=== PATIENT | male | born 1940 | race Caucasian/White ===

== ENCOUNTER 2022-03-14 13:57 | Outpatient (CLI) | payer MEDICARE, BC, SELFPAY ==
--- OUTSIDE RECORDS SUMMARY | 2022-02-25 09:44 | XMS_ITS | Continuity of Care Document ---
:1940 Author Care Team Providers Name Role Phone MD Joy E Attending Physician MD Joy E Primary Care Physician Chief Complaint and Reason for Visit Chief Complaint Laceration Health Concerns Concerns Review problems and other documentation throughout for Health Concerns. 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 Hyperlipidemia 2017 Active Adenomatous polyp of colon 2020 Active Benign prostatic hypertrophy 2020 Active Post-nasal drip Active Upper airway cough syndrome 2020 Active Erectile dysfunction Active Post-nasal drainage Active 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, 2009 Resolved History of arthroscopic surgery May 24, 2009 Resolve d of shoulder History of melanoma June 15, 2009 Active Basal cell carcinoma of neck 2013 Resolved Squamous cell carcinoma of skin 2019 Resolved Medications Medication Status Dose Units Route Directions Qty Days Start End Ins tructions Date Date Calcium Active 625 MG PO Twice A Day Polycarbophil (Fiber-Lax) 625 Mg TAB Cetirizine Active 10 MG PO Bedtime March 3:27pm Cholecalcifer Active 5000 UNIT OR Daily ol (Vitamin D3) 5,000 Unit TAB Diphenhydrami Active 25 MG PO Bedtime 1 ne Hcl (Sleep) (Benadryl) 25 Mg TAB Docusate Active 1 TAB PO Twice A Day Calcium Finasteride Active 5 MG PO Daily November 29, 2021 9:53am Fluticasone Active 2 SPRAY EACH Daily 3 Februar Propionate NOSTR y 8th, (Nasal) 2021 10:15am Glucosamine-C Active 2 CAP PO Daily hondroitin (Glucosamine Chondroitin) 1 Cap CAP Hydrochloroth Active 25 MG PO Daily October ia2021 11:27am Melatonin Active 10 MG PO Bedtime Methylcellulo Active 500 MG PO Twice A Day se (Soluble Fiber) 19 Gm CUP Misc Natural Active 1 TAB PO Daily Products (Osteo Bi-Flex Joint Healt) 1 Tab TAB Multiple Active 1 EA PO Daily Vitamin (Multi-Vitami n) TAB Psyllium Active 1 TSP PO Every (Psyllium Morning as Fiber) 0.52 needed Gm CAP Simvastatin Active 20 MG PO Bedtime November 23, 2021 11:27am Tamsulosin Active 0.4 MG PO Daily Hcl (Flomax) r , 0.4 Mg CAP 2020 11:11am Aspirin Disconti 81 MG PO Daily March nued 2018 9:52am Aspirin Disconti 325 MG PO Daily Novemb (Aspirin 325 nued er Mg) 325 Mg , 2009 10:03a m Azithromycin Disconti 0 PO Daily 06 June Decemb T [facility] 2 TABLETS TOGETHER TODAY, THEN 1 TABLET ONCE DAILY FOR 4 MORE (Zithromax) nued , er DAYS 250 Mg TAB 2011, 10:51am 2011 10:06a m Cephalexin Disconti 500 MG PO Three Times September (Keflex) 500 nued A Day , Mg CAP 2010 2010 10:17am 10:29a m Cephalexin Disconti 500 MG PO Three Times 21 June Nov mb (Keflex) 500 nued A Day , er Mg CAP 2010 08, 9:54am 2009 9:58am Cephalexin Disconti 500 MG PO Three Times Juno be (Keflex) 500 nued A Day er r Mg CAP 2008 10:46am 3:00pm Cholecalcifer Disconti 400 IU PO Februa ol (Vitamin nued ry D) 400 Iu TAB 2014 10:29a m Clobetasol Disconti 1 JEY TOP Twice A Day March APPLY Propionate nued , , SPARINGLY TO (Clobetasol 2020 2021 AFFECTED AREA Propionate 3:27pm 3:06pm Cream) 0.05 % CRE Diclofenac Disconti 75 MG PO Twice A Day June ar Sodium nued 2012, 12:11pm 2013 12:57p m Diphtheria/Te Disconti 0.5 ML IM Once 1 Februar Februa tanus/Acell nued y , ry Pertussis 2014 10, (Adacel) 0.5 10:56am 2015 Ml INJ 11:18a m Fexofenadine Disconti 180 MG PO Daily March Hcl (Cassi nued , Allergy) 180 2020 Mg TAB 2:56pm Fexofenadine Disconti 180 MG OR Daily Octobe Hcl (Cassi nued , Allergy) 180 2014 Mg TAB 2:38pm Finasteride Disconti 5 MG PO Daily October nued 2021 9:53am Fish Oil Disconti 2000 MG PO Daily Octobe nued r 2009 9:42am Fluconazole Disconti 150 MG PO Once 1 November nued , , 2013 2013 11:07am 9:52am Fluocinonide Disconti 0.05 % EX Twice A Day October em (Lidex) 0.05 nued , % OIN 2010 06, 3:37pm 2011 10:54a m Fluticasone Disconti 2 SPRAY EACH Daily 3 Februar Novemb Propionate nued NOSTR y 9, er (Fluticasone 2016, Propionate 10:21am 2017 (Nasal)) 50 11:38a Mcg/1 [place] m INH Fluticasone Disconti 2 SPRAY EACH Daily 3 Septemberua Propionate nued NOSTR , ry (Fluticasone 2017 05, Propionate 11:09am 2016 (Nasal)) 50 10:21a Mcg/1 [place] m INH Fluticasone Disconti 2 SPRAY EACH Daily 3 uar Sepuar Propionate nued NOSTR y 15, y (Fluticasone 2015, Propionate 10:55am 2016 (Nasal)) 50 11:09a Mcg/1 [place] m INH Fluticasone Disconti 2 SPRAY EACH Daily June Propionate nued NOSTR 26th, ry (Fluticasone 2014 15, Propionate 10:54am 2016 (Nasal)) 50 10:55a Mcg/1 [place] m INH Fluticasone Disconti 1 SPRAY EACH Twice A Day 1 Jun obe Propionate nued NOSTR y 2nd, r (Flonase) 50 2014, Mcg/1 [place] 11:14am 2014 JULISSA 10:54a m Fluticasone Disconti 2 SPRAY EACH Daily Propionate nued NOSTR r 17, ry (Nasal) 2021 04, 12:29pm 2021 10:15a m Fluticasone Disconti 2 SPRAY EACH Daily April Propionate nued NOSTR 24th, er (Nasal) 2020, 3:22pm 2020 12:29p m Fluticasone Disconti 2 SPRAY EACH Daily June Propionate nued NOSTR 19th, 24th, (Nasal) 2019 2020 3:14pm 3:22pm Fluticasone Disconti 2 SPRAY EACH Daily January Propionate nued NOSTR 2nd, r (Nasal) 2019, 11:23am 2019 3:14pm Fluticasone Disconti 2 SPRAY EACH Daily October Propionate nued NOSTR 16th, 2nd, (Nasal) 2019 2019 2:18pm 11:23a m Fluticasone Disconti 2 SPRAY EACH Daily October Propionate nued NOSTR y , 16, (Nasal) 2018 2019 9:02am 2:18pm Fluticasone Disconti 2 SPRAY EACH Daily October Propionate nued NOSTR , ry (Nasal) 2017 12, 12:00pm 2018 9:02am Fluticasone Disconti 2 SPRAY EACH Daily October Propionate nued NOSTR 9th, 12th, (Nasal) 2017 2017 11:52am 12:00p m Guaifenesin Disconti 400 MG OR Daily as Januar nued 2021 7:51am Hydrochloroth Disconti 25 MG PO Daily November iazide nued 2020 12:06pm 11:27a m Hydrochloroth Disconti 25 MG PO Daily September iazide nued 2019 10:35am 11:48a m Hydrochloroth Disconti 25 MG PO Daily 90 Februar Januar iazide nued y , y 2019 23, 9:02am 2019 10:35a m Hydrochloroth Disconti 25 MG PO Daily September Februa iazide nued , ry 2019 5th, 3:12pm 2018 9:02am Hydrochloroth Disconti 25 MG PO Daily 90 November Januar iazide nued , y 2018 15, 2:06pm 2018 3:12pm Hydrochloroth Disconti 25 MG PO Daily 90 Februar November iazide nued y , , 2017 2018 10:21am 2:06pm Hydrochloroth Disconti 25 MG PO Daily 90 Novembe Februa iazide nued r 4th, ry 2016 9, 8:36am 2016 10:21a m Hydrochloroth Disconti 25 MG PO Daily 90 Februar Novemb iazide nued y 15, er 2016 4th, 10:55am 2015 8:36am Hydrochloroth Disconti 25 MG PO Daily June Februa iazide nued , ry 2014 15, 10:54am 2015 10:55a m Hydrochloroth Disconti 25 MG PO Daily Juneobe Patient needs iazide nued , r apt prior to 2014, further 9:49am 2014 refills. 10:54a m Hydrochloroth Disconti 25 MG PO Daily Juneobe iazide nued , r 2013, 2:54pm 2014 9:49am Hydrochloroth Disconti 25 MG PO Daily Juneobe iazide nued , r 2013 1:39pm 2:54pm Hydrochloroth Disconti 25 MG PO Daily January iazide nued , r , 2013 2013 10:26am 1:39pm Hydrochloroth Disconti 25 MG PO Daily November iazide nued , , 2013 2013 3:44pm 10:26a m Hydrochloroth Disconti 25 MG PO Daily January iazide nued , , 2012 2013 8:00am 3:44pm Hydrochloroth Disconti 25 MG PO Daily October iazide nued , , 2012 2012 1:22pm 8:00am Hydrochloroth Disconti 25 MG PO Daily 90 January iazide nued , 2011 1:39pm 1:22pm Hydrochloroth Disconti 25 MG PO Daily 30 r January iazide nued y , 2011 12:39pm 1:39pm Hydrochloroth Disconti 25 MG PO Daily Juneua iazide nued , ry 2010, 1:26pm 2011 12:39p m Hydrochloroth Disconti 25 MG PO Daily Marchobe iazide nued , r 2010, 2:40pm 2010 1:26pm Hydrochloroth Disconti 25 MG PO Daily October iazide nued 2010 4:10pm 2:40pm Hydrochloroth Disconti 25 MG PO Daily September iazide nued , 2010 11:42am 4:10pm Hydrochloroth Disconti 25 MG PO Daily 30 [facility] iazide nued r , y 2009, 3:07pm 2010 11:42a m Hydrochloroth Disconti 25 MG PO Daily 30 [facility] iazide nued r , er 2008 27, 11:34am 2009 3:07pm Hydrochloroth Disconti 25 MG PO Daily 28 February [facility] iazide nued , er 2008 28, 3:54pm 2008 11:34a m Influenza Disconti 0.7 ML IM Once Juneobe Virus Vac nued , r Split High 2020, (Fluzone 2:51pm 2020 High-Dose Pf 2:55pm 2020 0.7 Ml) 1 Inj INJ Influenza Disconti 0.5 ML IM Once Juneobe Virus Vaccine nued , r Split 2018, (Fluzone 3:45pm 2018 High-Dose Pf 3:46pm 2018 0.5 Ml) 1 Inj INJ Ipratropium Disconti 2 SPRAY EACH Three Times March [place] nued NOSTR A Day , (Ipratropium 2019 2020 [place] Nasal 3:23pm 10:57a [place]) 0.03 % m SPR Loratadine Disconti 10 MG PO Daily Octobe nued r 2014 11:06a m Loratadine Disconti 10 MG OR Daily Octobe (Allergy) 10 nued r 8th, Mg TAB 2013 2:29pm Magnesium Disconti 400 MG PO Daily October Hydroxide nued , (Milk Of 2009 Magnesia) 400 2:51pm Mg/5 Ml TIM Menthol-Camph Disconti 1 CRE EX as needed November or nued , (Liniments) 2018 (Icy Hot 8:34am Advanced Relief 16-11 %) 1 Cre CRE Methylprednis Disconti 1 TAB PO As Directed r A pril DIRECTED olone (Medrol nued y , , ON P ACKAGE Dosepak) 4 Mg 2014 2014 MEGA 3:31pm 2:46pm Molnupiravir Disconti 800 MG PO Twice A Day December nued , , 2021 2021 4:09pm 3:06pm Molnupiravir Disconti 800 MG PO Twice A Day December nued , , 2021 2021 2:18pm 4:09pm No Home Meds Disconti Decembered 2006 9:49am Yldhg-0-Ykha Disconti 2 TABS OR Daily Februa Ethyl Esters nued (Fish Oil) , 1,200 Mg CAP 2016 10:08a m Pneumococcal Disconti 0.5 ML IM Once 1 Februar Februa Polyvalent nued y , ry Vaccine 2014 12, (Prevnar 13) 2:19pm 2014 0.5 Ml INJ 2:21pm Prednisone Disconti 20 MG PO Twice A Day March nued , y 2020 11, 3:27pm 2021 7:51am Prednisone Disconti 20 MG PO Twice A Day December nued , , 2016 2016 2:49pm 4:12pm Prednisone Disconti 20 MG PO Every 7 June Februa nued Morning , ry 2014, 10:59am 2015 1:12pm Promethazine Disconti 1 - 2 TSP PO Q4-6H Prn 120 March Octobe W/Codeine nued , r (Phenergan W/ 2010, Codeine) 6.25 11:17am 2011 Mg/10 Mg SYRP 3:25pm Salonpas Disconti 1 PATCH TD as needed November 8:34am [place] Disconti 1 CAP PO Twice A Day March (Serenoa nued , Repens) (2020 [place]) 160 2:56pm Mg CAP [place] Disconti 160 MG PO Octobe (Serenoa nued r Repens) (, [place]) 160 2019 Mg CAP 3:37pm Sawplalenty Disconti 2 TABS Daily nued 2014 10:29a m Sildenafil Disconti 40-10 MG PO Daily as September Take at least Citrate nued 0 needed 4th, y 1 hour befo re (Sildenafil 2020, sexual Citrate 12:52pm 2020 activity (Pulmonary)) 2:12pm 20 Mg TAB Sildenafil Disconti 40-10 MG PO Daily as December Ta ke at least Citrate nued 0 needed , y 4th, 1 hour bef ore (Pulmonary 2018 2020 sexual (Sildenafil 11:48am 12:52p activ ity Citrate) 20 m Mg TAB Simvastatin Disconti 20 MG PO Bedtime November nu, , 2020 2021 12:06pm 11:27a m Simvastatin Disconti 20 MG PO Bedtime September, 2019 10:35am 11:48a m Simvastatin Disconti 20 MG PO Bedtime nu y , y 2018, 9:02am 2019 10:35a m Simvastatin Disconti 20 MG PO Bedtime September nued , ry 2018 12, 8:29am 2018 9:02am Simvastatin Disconti 20 MG PO Bedtime November nued , y 2017 16, 2:09pm 2018 8:29am Simvastatin Disconti 20 MG PO Bedtime Octobered , , 2016 2017 1:23pm 2:09pm Sulfamethoxaz Disconti 1 TABLET PO Twice A Day 20 April J olive ole-Trimethop nued , y rim (Bactrim 2016, Ds (800/160)) 9:46am 2017 800 Mg/160 Mg 10:50a TAB m Tamsulosin Disconti 0.4 MG PO Daily March [facility] Hcl (Flomax) nued 9, er 0.4 Mg CAP 2020, 4:13pm 2020 11:11a m Tamsulosin Disconti 0.4 MG PO Daily April Hcl (Flomax) nued 18, 9, 0.4 Mg CAP 2019 2020 3:00pm 4:13pm Tamsulosin Disconti 0.4 MG PO Daily 60 January Hcl (Flomax) nued , , 0.4 Mg CAP 2019 2019 2:45pm 3:00pm Zostavax Disconti 0.65 ML SUBQ Once 1 [facility] nued r 15, er 2009, 2:11pm 2009 2:14pm Zoster Disconti 50 MCG IM Once Septemberr Vaccine nued 18, y Recombinant 2020 18, Adj 2:27pm 2020 (Shingrix) 50 2:58pm Mcg/0.5 Ml INJ Immunizations Immunization Event Date Not Given Dose [employer] Lot Vac cine Reason Number Number Informatio n Statement (VIS) Deta il COVID-19 Pfizer October 02, 2020 COVID-19 Pfizer October 032020 COVID-19 Pfizer June 14, 2020 Herpes Zoster March 14, 2007 Herpes Zoster August 02 [employer] 2009 Influenza April 28, 2016 Influenza May 03, 2017 Influenza June 17, 3 SANOFI 2018 Influenza June 08, 4 2019 Influenza June 26, 5 SANOFI 2020 Influenza June 26, 2020 Prevnar Adult October 06, 2014 Pneumovax Adult February 13, 2006 Shingrix August 01, 2009 Shingrix September 18, 2 GLAXO SK 2020 Tetanus/Diptheri June 14, 1 a 2005 Tetanus/Diptheri October 03, 2 a 2014 Tdap October 03, 1 SANOFI [id number] (adolescent/adul 2015 t) Relevant Diagnostic Tests and/or Laboratory Data Laboratory Results Test Date/Time Result Interpretation Reference Result Comment Performing Site Range Random February 12 60-115 [facility] Glucose 2021 [address] [facility] 3:30pm [facility] [address] Blood Urea February 12 7-30 [facility] Nitrogen 2021 [address] [facility] 3:30pm [place] [address] Creatinine February 12, 0.9 0.5-1.5 [facility] Lab 2021 [address] [facility] 3:30pm [place] [address] Estimated February 12, Patient [facility] Creatinine 2021 height/weight [address] [facility] Clearance 3:30pm [place] [address] available Sodium Level February 12, 135 135-149 [facility] Lab 2021 [address] [facility] 3:30pm [place] [address] Potassium February 12, 4.3 3.6-5.1 [facility] Level 2021 [address] [facility] 3:30pm [place] [address] Chloride February 12, 94 96-114 [facility] Level 2021 [address] [facility] 3:30pm [facility] [address] Carbon February 12, 33 20-32 [facility] Dioxide 2021 [address] [facility] Level 3:30pm [facility] [address] Calcium February 12, 9.4 8.4-10.6 [facility] Level 2021 [address] [facility] 3:30pm [facility] [address] Total February 12, 6.9 6.0-8.3 The use of [facility] Protein 2021 Eltrombopag, a [address] [facility] 3:30pm bone [place] [address] stimulant used to treat thrombocytopen ia and aplastic anemia, interferes with this measurement of total protein. A 5% bias has been observed. Albumin February 12, 4.4 3.3-5.0 [facility] 2021 [address] [facility] 3:30pm [facility] [address] Total February 12, 0.6 0.1-1.5 [facility] Bilirubin 2021 [address] [facility] 3:30pm [facility] [address] Aspartate February 12, 36 12-35 [facility] Amino Transf 2021 [address] (AST/SGOT) 3:30pm [facility] [address] Alanine February 12, 25 4-50 [facility] Aminotransfe 2021 [address] rase 3:30pm [facility] [address] (ALT/SGPT) Alkaline February 12, 77 40-150 [facility] Phosphatase 2021 [address] [facility] 3:30pm [place] [address] Thyroid February 12, 4.410 0.270-4.20 [facility] Stimulating 2021 0 [address] [facility] Hormone 3:30pm [place] [address] (TSH) Free February 12, 1.01 0.70-1.85 [facility] Thyroxine 2021 [address] [facility] 3:30pm [place] [address] White Blood February 12, 6.8 4.5-11.0 [facility] Count 2021 [address] [facility] 3:18pm [place] [address] Red Blood February 12, 4.36 4.30-5.90 [facility] Count 2021 [address] [facility] 3:18pm [place] [address] Hemoglobin February 12, 13.6 13.5-17.5 [facility] [place] 2021 [address] [facility] 3:18pm [place] [address] Hematocrit February 12, 40.6 37-53 [facility] [address] [facility] 3:18pm [place] [address] Mean February 12, 93 80-100 [facility] Corpuscular 2021 [address] [facility] Volume 3:18pm [place] [address] Mean February 12, 31 26-34 [facility] Corpuscular 2021 [address] [facility] Hemoglobin 3:18pm [place] [address] Mean February 12, 34 32-36 [facility] Corpuscular 2021 [address] [facility] Hemoglobin 3:18pm [place] [address] Concent Platelet February 12, 289 140-440 [facility] Count 2021 [address] [facility] 3:18pm [place] [address] Neutrophils February 12, 68.3 42-72 [facility] (%) (Auto) 2021 [address] [facility] 3:18pm [place] [address] Lymphocytes February 12, 20.2 20-44 [facility] (%) (Auto) 2021 [address] [facility] 3:18pm [facility] [address] Monocytes February 12, 9.3 0-11 [facility] (%) (Auto) 2021 [address] [facility] 3:18pm [place] [address] Eosinophils February 12, 1.8 0-7 [facility] (%) (Auto) 2021 [address] [facility] 3:18pm [place] [address] Basophils February 12, 0.3 0.0-3.0 [facility] (%) (Auto) 2021 [address] [facility] 3:18pm [place] [address] Neutrophils February 12, 4.6 1.7-7.0 [facility] # (Auto) 2021 [address] [facility] 3:18pm [place] [address] Lymphocytes February 12, 1.4 0.9-2.9 [facility] [place] # (Auto) 2021 [address] [facility] 3:18pm [place] [address] Monocytes # February 12, 0.6 0.0-0.9 [facility] ealtedical [place] (Auto) 2021 [address] [facility] 3:18pm [place] [address] Eosinophils February 12, 0.1 0.0-0.5 [facility] # (Auto) 2021 [address] [facility] 3:18pm [place] [address] Basophils # February 12, 0.0 0.0-0.3 [facility] (Auto) 2021 [address] [facility] 3:18pm [place] [address] Immature February 12, 0.0 [facility] [place] Granulocyte 2021 [address] [facility] # (Auto) 3:18pm [place] [address] Immature February 12, 0.1 [facility] Granulocyte 2021 [address] [facility] % (Auto) 3:18pm [place] [address] Diagnostic Imaging Reports Report Dictated Date/Time Dictated By Status October 06, 2018 Ellen Hamilton MD active 4:17pm [facility] [address] [place] [address] ~BABATUNDE Connor SUMMARY~ Patient: BRAD DE ANDA MR #: [id number] : 1940 Age: 78 Sex: M MD: Ellen Hamilton MD Report #: [id number] Loc: NIM afchristian October 06, 2018 BRAD [address] [address] [facility] [address] Dear Brad: ?? I hope this letter finds you quite well. It was such a pleasure to see you at your office visit today. I wanted to let you know that your blood sugar, electrolytes, kidney tests, and choleste rol are in excellent range. I would make no changes at this time. Let me know if you have any questions or concerns. ?? Very sincerely yours, Ellen Hamilton MD Internal Medicine [facility] ? [facility]:kristine ENCLOSURES: Labs. Dictated By: Ellen Hamilton MD Signed By: Vital Signs Vital Reading Result Reference Range Collection Date/ Time Height 71 [in_i] February 12, 2022 2:59pm Height 180.34 cm February 12, 2022 2:59pm Weight 171 [lb_av] February 12, 2022 2:59pm Weight 77.5643 kg February 12, 2022 2:59pm Body Temperature 98.3 [degF] February 12, 2022 2:59pm Body Temperature 36.83 Kristine February 12, 2022 2:59pm BP Systolic 124 mm[Hg] February 12, 2022 2:59pm BP Diastolic 72 mm[Hg] February 12, 2022 2:59pm Heart Rate 44 /min February 12, 2022 2:59pm Respiratory rate 14 /min February 12, 2022 2:59pm Body surface area 1.97 m2 February 12 2:59pm BMI (Body Mass Index) 23.8 kg/m2 February 12, 2022 2:59pm Advance Directives Advance Directive Response Recorded Date/Time Does Pt have Health Care N - Given today November 15 2:38pm Directive? Has patient completed a Yes February 12, 2022 3:30pm Health Care Directive? Insurance Providers Guarantor Brad De Anda Address [address] [facility] [address] Contact Info. Home Phone: Payer Policy Id Coverage Id Subscriber's Subscriber Id Effective E xpiration Name Date Date Medicare [id number] PremaOctober Brad Fleming [address] [facility] [id number] [place] [id number] Brad Fleming Encounters Encounter Location(s) Arrival/Admit Date Discharge/Depart Date Provider(s) Registered [place] February 12, 2022 [facility] 3:18pm Ellen Connor MD Registered [facility] February 12, 2022 [facility] 3:00pm Ellen Connor MD Office Visit [place] February 12, 2022 [facility] 3:00pm Ellen Connor MD Medicine Recent Diagnosis Onset Date Post-COVID chronic dyspnea Assessments 1. Post covid chronic fatigue.2. Post covid chronic dyspnea.His activity tolerance was pretty good. It is hard to know if labs/Echo/CT chest PE protocol (to rule out chronic PE due to Covid) should be done now or later, given his current symptoms. I'm on the fence, so have elected to do these diagnostics no w. If normal, the treatment would be activity as tolerated and a graduated exercise program (doing what he can). 3. Health Maintenance.Medicare wellness visit was done today. Dictation done with voice recognition, and as a result, wrong word or [id number] substitutions may have occurred. There may be errors in the script that have gone undetected. Please consider this when interpreting information found in this chart. Plan of Treatment Instructions from visit on: 02/12/22 Please follow the provider's instructions as discussed during your visit. Instructions from visit on: 02/12/22 Please follow the providers instructions as discussed during your visit and follow preventative care plan. Future Tests Future scheduled test information is unavailable Pending Tests Pending diagnostic test information is unavailable Future Visits Future appointment information is unavailable Referrals to Other Providers Referral information is unavailable Future Procedures Procedure Name Scheduled Date CARD Echo W/ CF Dop CT Chest W/Con-PE Pr Future Medications Future medication information is unavailable Patient Instructions Patient instructions are unavailable Goals Ambulatory Goals Reach or maintain optimal well being.
--- NOTE | 2022-03-14 15:00 | CRLHL7_ITS ---
For Patients: As a result of the Century Cures Act, medical imaging exams and procedure reports are released immediately into your electronic medical record. You may view this report before your referring provider. If you have questions, please contact your health care provider. INDICATION: Post-covid chronic dyspnea COMPARISON: none TECHNIQUE: CT volumetric acquisition was performed of the thorax during intravenous infusion of 95 cc Isovue 370 nonionic intravenous contrast. Please note that all CT scans at this facility use dose modulation, iterative reconstruction, and/or weight-based dosing when appropriate to reduce radiation dose to as low as reasonably achievable. FINDINGS: The CT images are of acceptable quality and demonstrate normal uniform vascular enhancement within the pulmonary arteries. There are no suspicious filling defects which would indicate pulmonary thromboemboli. There is no evidence of pleural or pericardial fluid. The heart and thoracic aorta appear normal. There is no evidence of lymphadenopathy within the central mediastinum or within either axilla. On lung window settings, there is no evidence of pneumothorax. 4 millimeter nodule in the posterior aspect of the right lower lobe, series 5, image 101. 9 millimeter nodule left lower lobe, series 5, image 103. Mild dependent atelectasis/scarring. Mild COPD/emphysema. Postop changes to the upper abdomen. Simple cyst left kidney measuring 2.5 cm. Dense vascular calcifications. No fracture. IMPRESSION: No evidence of pulmonary thromboembolism. Mild dependent areas of atelectasis/scarring. Mild COPD/emphysema. 9 millimeter left lower lobe nodule. Follow-up CT 3 months recommended. Please note that all CT scans at this facility use dose modulation, iterative reconstruction, and/or weight-based dosing when appropriate to reduce radiation dose to as low as reasonably achievable. Dictated by Corbin Ng MD @ 03/15/2022 11:01:12 AM (Electronically Signed)
== END 2022-03-14 13:58 | disposition home or self-care (01) ==
LOC: RAD 13:58
PROVIDERS: PCP Internal Medicine; Visit Provider Internal Medicine
DX: R06.09 Other forms of dyspnea (principal); J43.9 Emphysema, unspecified; R91.8 Other nonspecific abnormal finding of lung field; U09.9 Post COVID-19 condition, unspecified
CPT/HCPCS: 71260; 93306; Q9967

== ENCOUNTER 2022-03-30 10:15 | Emergency (ER) | payer MEDICARE, BC, SELFPAY ==
[2022-03-30 10:21] VITALS: BP 133/72; PULSE 96; RESP 18; TEMP 36.5; O2SAT 96; BMI 24.3
--- NOTE | 2022-03-30 11:05 | PC.NURSE ---
sling applied to left arm
--- NOTE | 2022-03-30 11:22 | PC.NURSE ---
BF to lab
[2022-03-30 12:10] LABS: Mononuclear WBC Body Fluid* 63 %; Polynuclear WBC Body Fluid* 37 %; WBC, Body Fluid* 0.691 10^3/uL
[2022-03-30 12:13] LABS: BF Clarity* Slightly Cloudy; BF Color Xanthochromic; BF Total Volume* 12
--- NOTE | 2022-03-30 19:16 | ED_ITS ---
HPI - General Adult General Date Seen: 03/30/22 Chief complaint: Extremity Pain/Injury, Upper Stated complaint: swollen left elbow Time Seen by Provider: 03/30/22 10:35 Source: patient History of Present Illness HPI narrative: Patient is an 81-year-old male who reports that about 2-3 weeks ago he had a lesion removed by dermatology. Over the past couple of days he has developed some increased swelling on his left elbow, underneath where that lesion was removed. He has some pain now which is new today. He also notes significantly more swelling. He has not had any fevers or chills. He denies any history of diabetes or medications which affect his immune system. He says he tried to call the dermatology clinic today but they are not open. He has not noted any drainage. He says that the sutures were dissolvable but he does not believe that they have dissolved yet, and he wonders if that is what is causing the problem. He denies any other trauma to the elbow. He has never had swelling in the elbow like this before. Related Data Home Medications Medication Instructions Recorded Confirmed ammonium lactate 12 % topical cream applic TOPICAL 03/30/22 finasteride 5 mg tablet mg 03/30/22 fluticasone propionate 50 INTRANASAL 03/30/22 mcg/actuation nasal spray,suspension hydrochlorothiazide 25 mg tablet mg 03/30/22 simvastatin 20 mg tablet mg 03/30/22 tadalafil 5 mg tablet mg 03/30/22 tamsulosin 0.4 mg capsule mg PO 03/30/22 Previous Rx's Medication Instructions Recorded cephalexin 500 mg capsule 500 mg PO QID #28 cap 03/30/22 Allergies Allergy/AdvReac Type Severity Reaction Status Date / Time No Known Drug Allergies Allergy Verified 03/30/22 10:25 Review of Systems Status of ROS: Reports: 6 or more systems reviewed and unremarkable except as noted in History and below Exam Narrative: Exam Narrative: Vital signs reviewed In general, an alert, nontoxic elderly male. He looks comfortable. Extremities: Examination of the left upper extremity shows swelling and bogginess over the olecranon on the left. There is erythema warmth. He has the previously mentioned wound from his derm procedure, this has 1 absorbable suture that I can see protruding. The wound itself appears well healed. There is no drainage. He has full range of motion of the elbow, this does not seem to cause him any pain. The arm otherwise is free of any significant erythema. Distal CMS is normal. Skin: Warm dry and well perfused. Neurologic he is alert and oriented, conversant, gait is stable. Affect: Normal. Const: Vital Signs, click to edit/add: Vital Signs - 24 hr 03/30/22 10:21 Temperature 97.7 F Pulse Rate [Right Pulse Oximeter] 96 Respiratory Rate 18 Blood Pressure [Ri ght Upper Arm] 133/72 Pulse Oximetry 96 Course Course Hospital Course: Overall presentation is consistent with olecranon bursitis. He does have erythema and warmth there, had a recent procedure with an open wound, and so I recommended that we cover him with antibiotics. Therefore I did recommend that we send some fluid off for culture before we start the antibiotics. He agreed to proceed with aspiration of the bursa. Procedure note: The skin was prepped with Betadine, I anesthetized the skin distal to the olecranon bursa with lidocaine with epinephrine and then used an 18 gauge needle, using is exactly approach into the bursa to minimize develo pment of sinus tract. Approximately 12 mL of orange serous fluid were removed. It does not look overtly purulent. This was sent for cell count and culture. He tolerated this well. Bandage was applied. I have given him a sling, I have asked him to minimize how much he uses this arm, I have asked him to avoid placing weight on his elbow. Tylenol as needed. Keflex as prescribed. I have asked him to call his derm clinic on Friday, however I suspect they will want him to follow up with Orthopedics for his bursitis rather than them. Discussed with him that he will likely need to schedule follow-up with Orthopedics. Also reviewed that if he is worsening, if he has significant increased swelling, redness, or develops new symptoms such as fever chills, he should return to the emergency department. Vital Signs Vital signs: Initial Vital Signs Temperature 97.7 F 03/30/22 10:21 Temperature Source Temporal Artery Scan 03/30/22 10:21 Pulse Rate 96 03/30/22 10:21 Respiratory Rate 18 03/30/22 10:21 Blood Pressure 133/72 03/30/22 10:21 Blood Pressure Mean 92 03/30/22 10:21 Blood Pressure Position Sitting 07/30/22 10:21 Pulse Oximetry 96 03/30/22 10:21 Oxygen Delivery Method 03/30/22 10:21 Vital Signs Temperature 97.7 F 03/30/22 10:21 Pulse Rate 96 03/30/22 10:21 Respiratory Rate 18 03/30/22 10:21 Blood Pressure 133/72 03/30/22 10:21 Pulse Oximetry 96 03/30/22 10:21 Temperature 97.7 F 03/30/22 10:21 Pulse Rate 96 03/30/22 10:21 Respiratory Rate 18 03/30/22 10:21 Blood Pressure 133/72 03/30/22 10:21 Pulse Oximetry 96 03/30/22 10:21 Medical Decision Making Lab Data Labs: Lab Results 03/30/22 Range/Units 11:00 Fluid Volume 12 Fluid Color Xanthochromic A Fluid Appearance Slightly Cloudy A Fluid WBC 0.691 10^3/uL Fluid RBC 0.010 10^6/uL Fluid Polynuclear WBCs 37 % Fluid Mononuclear WBCs 63 % Discharge Plan Discharge Clinical Impression: Olecranon bursitis of left elbow Patient Disposition: Home, Self-Care Condition: Improved Instructions: Elbow Bursitis (ED) Additional Instructions: Wear sling as much as able. Antibiotics as prescribed. Call your dermatology clinic on Friday to discuss follow-up. They may want you to follow-up with orthopedics for the bursitis, but given your recent procedure on the left elbow I would check with dermatology 1st. If at any time you have worsening swelling and or pain, or develop new symptoms such as fever, return to the emergency department. Prescriptions: New cephalexin 500 mg capsule 500 mg PO QID Qty: 28 0RF No Action tamsulosin 0.4 mg capsule PO 0RF Label Comments: TAKE ONE CAPSULE BY MOUTH DAILY simvastatin 20 mg tablet 0RF Label Comments: TAKE ONE TABLET BY MOUTH AT BEDTIME ammonium lactate 12 % cream TOPICAL 0RF Label Comments: APPLY AFFECTED ITCHY AREAS ON BODY 1-2X DAILY hydrochlorothiazide 25 mg tablet 0RF Label Comments: TAKE ONE TABLET BY MOUTH DAILY fluticasone propionate 50 mcg/actuation spray,suspension INTRANASAL 0RF Label Comments: USE 2 SPRAYS IN EACH NOSTRIL DAILY finasteride 5 mg tablet 0RF Label Comments: TAKE 1 TABLET BY MOUTH IN THE MORNING tadalafil 5 mg tablet 0RF Label Comments: TAKE 1 TABLET BY MOUTH ONCE DAILY NEEDED FOR ERECTILE DYSFUNCTION .TAKE 30 MINUTES BEFORE SEXUAL ACTIVITY Follow Up/Referrals: Ellen Hamilton MD [Primary Care Provider] - Stand Alone Forms: [employer] Info Instructions
== END 2022-03-30 11:14 | disposition home or self-care (01) ==
PROVIDERS: Emergency Provider Emergency Medicine; PCP Internal Medicine
DX: M70.22 Olecranon bursitis, left elbow (principal)
CPT/HCPCS: 20605; 87070; 89051; 99283

== ENCOUNTER 2022-05-08 06:12 | Day surgery (SDC) | payer MEDICARE, BC, SELFPAY ==
[2022-05-08] VITALS (12 sets, daily range): BP systolic 112–133; BP diastolic 54–71; PULSE 65–94; RESP 12–20; TEMP 36.3–36.8; O2SAT 94–98; BMI 24.4
[2022-05-08] MEDS: SODIUM CHLORIDE 0.9 % (FLUSH) 10 ML SYRINGE IVF (07:00)
[2022-05-08] MEDS: LACTATED RINGERS 1000 ML 1,000 ML 100 ML IV (07:00)
--- NOTE | 2022-05-08 08:56 | P.ORPRC_ITS ---
Procedure Note Date of procedure: 05/08/22 Procedure: PREOPERATIVE DIAGNOSIS: 1. Left elbow olecranon bursitis 2. Left posterior elbow sinus tract to the olecranon bursa POSTOPERATIVE DIAGNOSIS: 1. Left elbow olecranon bursitis 2. Left posterior elbow sinus tract to the olecranon bursa PROCEDURE: 1. Left elbow olecranon open bursectomy 2. Left elbow posterior excisional debridement of skin and subcutaneous tissue SURGEON: Austen Butcher MD. CERAMIC TILE INSTALLATION HELPER: Hawk HERNANDEZ - Of note, an trust manager assistant was critical for this case to aid in patient positioning, tissue retraction, limb manipulation/positioning, and closure. ANESTHESIA: General LMA EBL: Less than 2 mL IMPLANTS: None TOURNIQUET: 25 minutes at 250 torr COMPLICATIONS: None evident INDICATIONS: The patient is a pleasant 81-year-old male who has experienced left posterior elbow recurrent bursitis. The patient did attempt to drain this bursal sac 3 times on his own. This subsequently developed a cellulitis and a persistent drainage from a sinus tract. He was placed on oral antibiotics for the cellulitis but surgery was recommended/indicated for bursectomy and sinus tract excisional debridement. DESCRIPTION OF PROCEDURE: Following a thorough discussion of risks, benefits, and alternatives consent was obtained and the left elbow was marked. The patient was brought to the operating room and placed supine on the operating table. Induction of anesthesia was undertaken. 2 g IV Ancef was administered within 1 hr of incision preoperatively. Proper time-out was performed identifying proper patient, site, procedure. The operative extremity was prepped and draped in the appropriate sterile fashion using ChloraPrep after the patient was positioned supine with all bony prominences well padded. Following exsanguination of the operative extremity, a longitudinal, posterior skin incision was made along the olecranon bursa curving laterally around the olecranon tip. Upon entering the bursal sac a large amount of clear, christian colored, non malodorous fluid erupted out. This fluid was captured with a culture swab and sent for Gram stain, aerobic, and anaerobic cultures. Following this, the elbow bursa was substantially thickened. A complete bursectomy was performed a combination of 15 blade scalpel and Metzenbaum scissors and Bovie cautery. The sac was released from the surrounding subcutaneous tissue circumferentially even adjacent to the proximal olecranon. At the level of the sinus tract, skin and subcutaneous tissue was excised (it is less than 1 sq cm). The elbow bursa was thoroughly irrigated with normal saline, and closure performed in layered fashion with 2-0 Vicryl for space closure, 2-0 Stratafix for the subcutaneous, and 4-0 Stratafix for subcuticular closure. The skin adjacent to the sinus tract was closed primarily with 4-0 Monocryl in interrupted fashion at the end of the procedure. Dressings were applied, tourniquet deflated, and a posterior splint was applied. The patient was awoken from anesthesia and transferred to the PACU in stable condition. PLAN: 1. Nonweightbearing operative extremity. 2. Ice. 3. Elevate. 4. Percocet for pain p.r.n. 5. Follow up with PA visit in 1-2 weeks. Removal of splint, repeat clinical check. Follow up on cultures
[2022-05-08] MEDS: BUPIVACAINE 0.5% 30 ML 5 ML INJECTION (09:17)
--- NOTE | 2022-05-08 09:34 | W.ANESCHARGE ---
Anesthesia Charges Start Date/Time Anesthesia Start Date: 05/08/22 Anesthesia Start Time: 08:16 Stop Date/Time Anesthesia Stop Date: 05/08/22 Anesthesia Stop Time: 09:36 Summary Extremes of Age: Over 68-CPT [id number]
--- NOTE | 2022-05-08 10:07 | SUR.PHASEI ---
patient met anesthesia discharge criteria.
--- NOTE | 2022-05-08 17:13 | SUR.OPER ---
PATIENT QUESTIONS ANSWERED SATISFACTORILY PREOPERATIVELY.? PATIENT BROUGHT TO OR #2 PER CART.? Patient positioned supine on OR #2 bed.?The perioperative?team supported arms bilaterally on arm boards.? Final approval of positioning by surgeon.?
== END 2022-05-08 10:56 | disposition home or self-care (01) ==
PROVIDERS: PCP Internal Medicine; Visit Provider Orthopaedic Surgery Sports Medicine
PROC: (CPT 24105; principal; 2022-05-08 08:00)
DX: M70.22 Olecranon bursitis, left elbow (principal)
CPT/HCPCS: 24105; 00400; 87186; 87205; 99100; A4580; J1100; J2250; J2370; J2405; J2704; J3010; J3490; J7120

== ENCOUNTER 2022-05-21 09:02 | Outpatient (CLI) | payer MEDICARE, BC, SELFPAY ==
--- OUTSIDE RECORDS SUMMARY | 2022-05-21 09:05 | XMS_ITS | Continuity of Care Document ---
:[address] [facility] Care Team Providers Name Role Phone [facility] Unavailable Unavailable Problems Combined list of problems from Department of Defense and Veterans Affairs facilities. It does not include entries that were removed or entered in error. Problem Status Onset Problem Type Date of Comments Source Date Resolution Allergic Rhinitis Active Condition [place] [facility] [place] [id number]) [facility] Erectile [place] [facility] [id number]) HTN - Hypertension Active [place] [facility] ([facility] [id number]) HCS Hyperlipidemia ([facility] Active Condition [facility] [id number]) H[facility] Nocturia due to Active [place] [facility] benign prostatic [facility] hypertrophy Tear of left Active Condition [place] [facility] [facility] rotator cuff [facility] Diagnosis: [facility] ICD-10-CM L29.9 [facility]CS Pruritus, unspecifiedwith Provider Comments: Pruritus, unspecified Medications Combined list of outpatient medications from Department of Defense and Veterans Affairs facilities. Medications provided include 1) outpatient medications from the last 15 months, and 2) patient-reported medications. Medication Details Route Status Patient Prescription Prescription Last Ordering Order Source Instructions Expires Number Dispense Provider Date Date CALCIUM TAKE ACTIVE TRAUT,HERACLIO 04/02/ [place] POLYCARBOPH HARD L 2020 [facility] [place] TAB [facility] CETIRIZINE TAKE ACTIVE TRAUT,HERACLIO 04/02/ [place] TAB HARD L 2020 [facility] DOCUSATE NA TAKE 2 ORALLY ACTIVE TRAUT,HERACLIO 04/02/ [place] 100MG CAP CAPSULES HARD L 2020 [facility] BY MOUTH H[facility] PRN FINASTERIDE TAKE ONE ORALLY ACTIVE TRAUT,HERACLIO 04/02 / [place] 5MG TAB TABLET HARD L 2020 [facility] BY [facility]TH [facility] EVERY DAY FLUTICASONE SPRAY 2 NASAL ACTIVE TRAUT,HERACLIO 09/07/ [place] PROPIONATE SPRAYS HARD L 2019 [facility] 50MCG/SPRAY IN EACH HCS SOLN,NASAL, [place] 16GM EVERY DAY NEEDED HYDROCHLORO TAKE ONE ORALLY ACTIVE TRAUT,HERACLIO 09/07 / [place] THIAZIDE TABLET HARD L 2019 [facility] 25MG TAB BY MOUTH HCS EVERY DAY LIDOCAINE APPLY 1 [place]ICA ACTIVE 02/10/2023 [id number] TRAUT, HERACLIO 02/12/ [place] 5% PATCH PATCH LLY 2 HARD L 2021 [facility] TOPICALL [facility] Y EVERY DAY NEEDED FOR PAIN WEAR FOR 12 HOURS AND THEN REMOVE METHYLCELLU TAKE BY ORALLY ACTIVE TRAUT,HERACLIO 04/02/ [place] LOSE TAB MOUTH HARD L 2020 [facility] MULTIVITS TAKE ACTIVE TRAUT,HERACLIO 04/02/ [place] W/MINERALS( HARD L 2020 [facility] NO VIT K) HCS TAB PSYLLIUM TAKE 1 ORALLY ACTIVE 11/13/2022 [id number] TRAUT,R IC 11/13/ [place] PWDR,ORAL TABLESPO 2 HARD L 2021 [facility] ON BY HCS MOUTH EVERY DAY MIXED IN JUICE OR WATER DIRECTED TO HELP REGULATE STOOLS TO HELP HEMORRHO IDS. PSYLLIUM TAKE 1 ORALLY DISCONT 09/20/2021 [id number] TRAUT, HERACLIO 09/19/ [place] PWDR,ORAL TABLESPO INUED 1 HARD L 2020 [facility] ON BY [facility]CS MOUTH EVERY DAY MIXED IN JUICE OR WATER DIRECTED TO HELP REGULATE STOOLS TO HELP HEMORRHO IDS. TADALAFIL TAKE 5MG ORALLY ACTIVE TRAUT,HERACLIO 04/02/ [place] TAB BY MOUTH HARD L 2020 [facility] PRN [facility]CS TAMSULOSIN TAKE 1 ORALLY ACTIVE TRAUT,HERACLIO 04/02/ [place] HCL 0.4MG CAPSULE HARD L 2020 [facility] CAP BY MOUTH H[facility] AT BEDTIME TRIAMCINOLO APPLY TOPICA 04/03/2022 [id number] TR AUT,HERACLIO 04/03/ [place] NE THIN LLY 1 HARD L 2020 [facility] ACETONIDE LAYER HCS 0.1% TOPICALL CREAM,TOP Y TWICE A DAY AVOID FACE,[place] IN and ARMPITS *FOR EXTERNAL USE ONLY FOR DERMATIT IS Immunizations Combined list of available immunizations from the Department of Defense and Veterans Affairs facilities. Immunization Series Date Administered Site Reaction Lot CVX Drug St atus Comments Source Given By Number Code Client Services Coordinator COVID-19 2 complet PFR; [place] (PFIZER), 2020 ed [id number]; [facility] MRNA, LNP-S, 02 HCS PF, 30 1 MCG/0.3 ML DOSE COVID-19 1 complet PFR; [place] (PFI[place]), 2020 ed [id number]; [place] MRNA, LNP-S, 02 HCS PF, 30 1 MCG/0.3 ML DOSE INFLUENZA, complet [place] UNSPECIFIED 2019 ed [facility] FORMULATION [facility] INFLUENZA, complet [place] HIGH DOSE 2018 ed HEAL TH SEASONAL PNEUMOCOCCAL complet [facility] CONJUGATE PCV 2019 ed HEALTH 13 INFLUENZA complet [place] (HISTORICAL) 2003 ed [facility] PNEUMOCOCCAL, 04/02/ 109 complet [place] UNSPECIFIED 2003 ed [facility] INFLUENZA complet [place] (HISTORICAL) 2002 ed [place] [facility] TD(ADULT) complet [place] UNSPECIFIED 1998 ed [place] [facility] FORM[facility]ATION [facility] Results Combined list of recent chemistry, hematology and other laboratory results from Department of Defense and Veterans Affairs, ranging from 15 months to all on record, depending upon the facility. Order Results Value Reference Date Interpretation Specimen Commen ts Source Name Range BASIC CREATININE 0.8 0.7 - 1.2 04/02 Specimen Ty pe: PLASMA [place] METABOLIC [MASS/VOLUM /2020 No comment entered. IS [facility] PANEL+MG E] IN SERUM Ordering P rovider: GILBERT WONG OR PLASMA Report Releas ed Date/Time: Apr 02, 2021 12:19 PM Reporting Lab: [facility] [place] [address] Performing Lab: [facility] [address] [place] [address] BASIC UREA 13 8 - 26 04/02 Specimen Type: P LASMA [place] METABOLIC NITROGEN /2020 No comment en tered. IS [facility] PANEL+MG [MASS/VOLUM Ordering P rovider: GILBERT WONG E] IN SERUM Report Rele ased Date/Time: Apr 02, 2021 12:19 PM OR PLASMA Reporting Lab : [facility] [address] [place] [address] Performing Lab: [facility] [address] [place] [address] BASIC GLUCOSE 79 74 - 100 04/02 Specimen Type: PLASMA [place] METABOLIC [MASS/VOLUM /2020 No comment entered. IS [facility] PANEL+MG E] IN SERUM Ordering P rovider: GILBERT WONG OR PLASMA Report Releas ed Date/Time: Apr 02, 2021 12:19 PM Reporting Lab: [facility] [address] [facility] [place] [address] Performing Lab: [facility] [place] [address] BASIC SODIUM 136 136 - 145 04/02 Specimen Type: PLASMA [place] METABOLIC [MOLES/VOLU /2020 No comment entered. IS [facility] PANEL+MG ME] IN Ordering Provi naveed: GILBERT WONG SERUM OR Report Release d Date/Time: Apr 02, 2021 12:19 PM PLASMA Reporting Lab: [facility] [place] [address] Performing Lab: [facility] [place] [address] BASIC POTASSIUM 3.3 3.5 - 5.1 04/02 L Specimen Typ e: PLASMA [place] METABOLIC [MOLES/VOLU /2020 No comment entered. IS [facility] PANEL+MG ME] IN Ordering Provi naveed: GILBERT WONG SERUM OR Report Release d Date/Time: Apr 02, 2021 12:19 PM PLASMA Reporting Lab: [facility] [address] [address] Performing Lab: [facility] [place] [address] BASIC CHLORIDE 96 98 - 107 04/02 L Specimen Type: PLASMA [place] METABOLIC [MOLES/VOLU /2020 No comment entered. IS [facility] PANEL+MG ME] IN Ordering Provi naveed: GILBERT WONG SERUM OR Report Release d Date/Time: Apr 02, 2021 12:19 PM PLASMA Reporting Lab: [facility] [address] [facility] [address] Performing Lab: [facility] [address] [facility] [address] BASIC CARBON 32 22 - 29 08 H Specimen Type: P LASMA [place] METABOLIC DIOXIDE, /2020 No comment en tered. IS [facility] PANEL+MG TOTAL Ordering Provi naveed: GILBERT WONG [MOLES/VOLU Report Rele ased Date/Time: Apr 02, 2021 12:19 PM ME] IN Reporting Lab: [facility] SERUM OR [address] [place] [address] PLASMA Performing Lab: [facility] [address] [place] [address] BASIC CALCIUM 9.1 8.4 - 10.2 04/02 Specimen Type : PLASMA [place] METABOLIC [MASS/VOLUM /2020 No comment entered. IS [facility] PANEL+MG E] IN SERUM Ordering P rovider: GILBERT WONG OR PLASMA Report Rele ed Date/Time: Apr 02, 2021 12:19 PM Reporting Lab: [facility] [address] [place] [address] Performing Lab: [facility] [address] [place] [address] BASIC MAGNESIUM 2.1 1.6 - 2.6 04/02 Specimen Typ e: PLASMA [place] METABOLIC [MASS/VOLUM /2020 No comment entered. IS [facility] PANEL+MG E] IN SERUM Ordering P rovider: GILBERT WONG OR PLASMA Report [facility] ed Date/Time: Apr 02, 2021 12:19 PM Reporting Lab: [facility] [address] [place] [address] Performing Lab: [facility] [address] [place] [address] BASIC ANION GAP 8 5 - 15 04/02 Specimen Type: PLASMA [place] METABOLIC IN SERUM OR /2020 No comment entered. IS [facility] PANEL+MG PLASMA Ordering Provi naveed: GILBERT WONG Report Released Date/Time: Apr 02, 2021 12:19 PM Reporting Lab: [facility] [address] [place] [address] Performing Lab: [facility] [address] [place] [address] BASIC GLOMERULAR 93 60 04/02 Specimen Type : PLASMA [place] METABOLIC FILTRATION /2020 No comment entered. IS [facility] PANEL+MG RATE/1.73 Ordering Pro vider: GILBERT WONG SQ Report Released Date/Time: Apr 02, 2021 12:19 PM M.PREDICTED Reporting L ab: [facility] [VOLUME [address] [place] [address] RATE/AREA] Performing L ab: [facility] IN SERUM, [address] [facility] [address] PLASMA OR BLOOD BY CREATININE- BASED FORMULA (CKD-EPI) CBC LEUKOCYTES 8.75 4.0 - 11.0 04/02 Specimen T ype: BLOOD [place] [#/VOLUME] /2020 No comment en tered. IS [facility] IN BLOOD BY Ordering Pr ovider: GILBERT WONG AUTOMATED Report Releas ed Date/Time: Apr 02, 2021 12:19 PM COUNT Reporting Lab: [facility] [address] [place] [address] Performing Lab: [facility] [address] [place] [address] CBC ERYTHROCYTE 4.51 4.6 - 6.2 04/02 L Specimen T ype: BLOOD [place] S /2020 No comment enter ed. [facility] [#/VOLUME] Ordering Pro vider: GILBERT WONG IN BLOOD BY Report Rele ased Date/Time: Apr 02, 2021 12:19 PM AUTOMATED Reporting Lab : [facility] COUNT [address] [place] [address] Performing Lab: [facility] [address] [place] [address] CBC HEMOGLOBIN 14.3 13.5 - 04/02 Specimen Type : BLOOD [place] [MASS/VOLUM 17.9 /2020 No comment e ntered. IS [facility] E] IN BLOOD Ordering Pr ovider: GILBERT WONG Report Released Date/Time: Apr 02, 2021 12:19 PM Reporting Lab: [facility] [address] [place] [address] Performing Lab: [facility] [address] [place] [address] CBC HEMATOCRIT 41.4 41 - 54 04/02 Specimen Type : BLOOD [place] [VOLUME /2020 No comment enter ed. IS [facility] FRACTION] Ordering Prov ider: GILBERT WONG OF BLOOD BY Report Rele ased Date/Time: Apr 02, 2021 12:19 PM AUTOMATED Reporting Lab : [facility] COUNT [address] [place] [address] Performing Lab: [facility] [address] [facility] [address] CBC MCV 91.8 80 - 100 04/02 Specimen Type: BLOOD [place] [ENTITIC /2020 No comment ente red. IS [facility] VOLUME] BY Ordering Pro vider: GILBERT WONG AUTOMATED Report Releas ed Date/Time: Apr 02, 2021 12:19 PM COUNT Reporting Lab: [facility] [address] [place] [address] Performing Lab: [facility] [address] [place] [address] CBC MCH 31.7 27 - 33 04/02 Specimen Type: B LOOD [place] [ENTITIC /2020 No comment ente red. IS [facility] MASS] BY Ordering Provi naveed: GILBERT WONG AUTOMATED Report Releas ed Date/Time: Apr 02, 2021 12:19 PM COUNT Reporting Lab: [facility] [address] [facility] [address] Performing Lab: [facility] [address] [facility] [address] CBC MCHC 34.5 32.0 - 08 Specimen Type: B LOOD [place] [MASS/VOLUM 37.5 /2020 No comment e ntered. IS [facility] E] BY Ordering Provid er: GILBERT WONG AUTOMATED Report Releas ed Date/Time: Apr 02, 2021 12:19 PM COUNT Reporting Lab: [facility] [address] [place] [address] Performing Lab: [facility] [address] [facility] [address] CBC PLATELETS 245 150 - 400 04/02 Specimen Typ e: BLOOD [place] [#/VOLUME] /2020 No comment en tered. IS [facility] IN BLOOD BY Ordering Pr ovider: GILBERT WONG AUTOMATED Report Releas ed Date/Time: Apr 02, 2021 12:19 PM COUNT Reporting Lab: [facility] [address] [facility] [address] Performing Lab: [facility] [address] [place] [address] CBC PLATELET 10.0 7.4 - 10.4 04/02 Specimen Typ e: BLOOD [place] MEAN VOLUME /2020 No comment e ntered. IS [facility] [ENTITIC Ordering Provi naveed: GILBERT WONG VOLUME] IN Report Relea sed Date/Time: Apr 02, 2021 12:19 PM BLOOD BY Reporting Lab: [facility] AUTOMATED [address] [facility] [address] COUNT Performing Lab: [facility] [address] [facility] [address] CBC ERYTHROCYTE 12.8 11.5 - 04/02 Specimen Typ e: BLOOD [place] DISTRIBUTIO 14.5 No comment e ntered. IS [facility] N WIDTH Ordering Provid er: GILBERT WONG [RATIO] BY Report Relea sed Date/Time: Apr 02, 2021 12:19 PM AUTOMATED Reporting Lab : [facility] COUNT [address] [place] [address] Performing Lab: [facility] [address] [place] [address] LIPID CHOLESTEROL 176 <199 - 199 04/02 Specimen Type: PLASMA [place] PANEL,NON [MASS/VOLUM /2020 No comment entered. IS [facility] E] IN SERUM Ordering P rovider: TRAUT,GILBERT L OR PLASMA Report Releas ed Date/Time: Apr 02, 2021 12:19 PM Reporting Lab: [facility] [address] [place] [address] Performing Lab: [facility] [address] [place] [address] LIPID CHOLESTEROL 92 40 04/02 Specimen Typ e: PLASMA [place] PANEL,NON IN HDL /2020 No comment ent ered. IS [facility] [MASS/VOLUM Ordering P rovider: TRAPATRICEGILBERT L E] IN SERUM Report Rele ased Date/Time: Apr 02, 2021 12:19 PM OR PLASMA Reporting Lab : [facility] [address] [place] [address] Performing Lab: [facility] [address] [place] [address] LIPID CHOLESTEROL 72 <99 - 99 04/02 Specimen Ty pe: PLASMA [place] PANEL,NON IN LDL /2020 No comment ent ered. IS [facility] [MASS/VOLUM Ordering P rovider: TRAPATRICE,GILBERT L E] IN SERUM Report Rele ased Date/Time: Apr 02, 2021 12:19 PM OR PLASMA Reporting Lab : [facility] BY [address] [place] [address] CALCULATION Performing Lab: [facility] [address] [place] [address] LIPID CHOLESTEROL 12 <29 - 29 04/02 Specimen Ty pe: PLASMA [place] PANEL,NON IN VLDL /2020 No comment ent ered. IS [facility] [MASS/VOLUM Ordering P rovider: TRAUTGILBERT L E] IN SERUM Report Rele ased Date/Time: Apr 02, 2021 12:19 PM OR PLASMA Reporting Lab : [facility] BY [address] [place] [address] CALCULATION Performing Lab: [facility] [address] [place] [address] LIPID CHOLESTEROL 84 <129 - 129 04/02 Specimen Type: PLASMA [place] PANEL,NON NON HDL /2020 No comment ent ered. IS [facility] [MASS/VOLUM Ordering P rovider: GILBERT WONG] IN SERUM Report Rele ased Date/Time: Apr 02, 2021 12:19 PM OR PLASMA Reporting Lab : [facility] [address] [place] [address] Performing Lab: [facility] [address] [place] [address] LIPID TRIGLYCERID 60 <149 - 149 04/02 Specimen Type: PLASMA [place] PANEL,NON E /2020 No comment ent ered. IS [facility] [MASS/VOLUM Ordering P rovider: GILBERT WONG] IN SERUM Report Rele ased Date/Time: Apr 02, 2021 12:19 PM OR PLASMA Reporting Lab : [facility] [address] [place] [address] Performing Lab: [facility] [address] [place] [address] Encounters Combined list of: 1) Encounters from Department of Veterans Affairs facilities going back up to the last 18 months. 2) Encounters from the Department of [facility] facilities going back up to 280 months. Location Location Encounter Encounter Reason Attending ADM DC Stat us Disposition Source Details Type Number For Provider Date Date Visit Outpatient [id number] 02/20 [place] Encounter [id number] /2020 [facility] Outpatient [id number] 02/27 [place] Encounter [id number] /2020 [facility] O/P [id number] Diagnos AROLDO WONG 04/02 [place] EST MOD [id number] is: JOHN L /2020 [facility] 30-39 MIN ICD-10- HCS CM L29.9 Pruritu s, unspeci fied
with Provide r Comment s: Pruritu s, unspeci fied Social History Combined list of available smoking, tobacco, and other social history [facility]. Social History Type Response Date Comment Source Tobacco smoking status [facility]AC[facility] FORMER USER 04/02/2021 [facility]IS History of tobacco use [facility]-TOBACCO QUIT 15 YRS 04/02/2021 [facility] OR MORE History of tobacco use [facility]-TOBACCO QUIT 15 YRS 08/16/2019 [place] [facility] OR MORE Advance Directives List of completed, amended, or rescinded Advance Directives on record at Department of [facility] facilities. An actual copy of the Directive is not included. Date Advance Directive Provider Source 04/02/2004 ADVANCE DIRECTIVE ABRAN SESAY [facility]
--- OUTSIDE RECORDS SUMMARY | 2022-05-21 09:05 | XMS_ITS | Clinical Summary ---
:1940 Author Organization [facility] [place] [address] Care Team Providers Name Role Phone Ellen Hamilton MD Primary Care Provider Allergies No known active allergies Medications Medication Sig Dispensed Refills Start Date End Date Status MULTIVITAMIN TAB one daily 0 02/11/2007 Ac tive fexofenadine (GERARDO) 180 Take 1 tablet 0 4 Active mg tablet by mouth once daily with a meal. [id number] Takes 2 tabs 0 11/18/2014 Active c-mn (GLUCOSAMINE daily CHONDROITIN MAXSTR) 500-400 mg cap hydrochlorothiazide (HCTZ) Take 1 tablet 0 5 Active 25 mg tablet by mouth once daily. fluticasone (50 mcg per Inhale 1 [place] 1 Bottle 0 11/18/2014 Active actuation) nasal solution into both (FLONASE) nostrils once daily. 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 Take 30 minutes before sexual activity. tadalafiL (CIALIS) 5 mg Take 1 Tablet 90 Tablet 3 11/07/2021 Active tabletIndications: (5 mg) by Erectile dysfunction, mouth once unspecified erectile daily if dysfunction type needed for Erectile Dysfunction. Take 30 minutes before sexual activity. finasteride (PROSCAR) 5 mg Take 1 Tablet 90 Tablet 3 2 Active tabletIndications: (5 mg) by Nocturia mouth every morning. Active Problems Problem Noted Date Lumbar spinal stenosis 12/22/2013 Synovial cyst of lumbar facet joint 12/22/2013 Encounters Date Type Specialty Care Team Description 03/27/2022 Office Visit Donn Montanez, Musculo skeletal Problem (Follow up back pain ) 03/27/2022 Travel 03/14/2022 Orders Only <No scans attac hed> from Last 3 Months Immunizations Name Administration Dates Next Due Influenza, High-dose Inactivated 05/21/2016, 06/16/2015 Influenza, IIV4 05/18/2014, 05/18/2014 Influenza, Inactivated IIV3 (Age 65+ Years) Preserv 05/22/20 18, 04/28/2017 Free Pneumococcal Poly,23-Valent (Pneumovax) 09/01/2003 Pneumococcal, Unspecified 02/13/2006 Td (Age >=7 Years) 01/21/2007, 06/14/2005 Zoster (Zostavax-ZVL, live) 08/15/2010 Social History Tobacco Use Types Packs/Day Years Used Date Light Tobacco Smoker Cigars Quit: 0 12/31/1984 Smokeless Tobacco: Never Used Tobacco Cessation: Ready to Quit: No; Co unseling Given: Yes Comments: cigar 2x/month during summer [facility] Alcohol Use Standard Drinks/Week Comments Yes 0 (1 standard drink = 0.6 oz pure alcoho l) occas Alcohol Habits Answer Date Recorded How often do you have a drink containing 4 or more times a w [place] 09/20/2020 alcohol? How many drinks containing alcohol do you have 1 or 2 09/20/2020 on a typical day when you are drinking? How often do you have six or more drinks on one Never 09/20/2020 occasion? 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 Oxygen Saturation 98% 03/27/2022 1:54 PM CDT Inhaled Oxygen Concentration - - Weight 79.3 kg (174 lb 12.8 oz) 03/27/2022 1:54 PM CDT Height 182.9 cm (6' 0.01) 05/11/2015 8:21 AM CDT Body Mass Index 23.7 05/11/2015 8:21 AM CDT Plan of Treatment Upcoming Encounters Date Type Specialty Care Team Description 05/21/2022 Office Visit Donn Montanez MD Arrived [address] [facility] [address] [place], [place] [address] (Wo rk) Health Maintenance Due Date Last Done Comments Tdap 1951 Depression screening for age 12+ 1950 BMI (ht and wt on same day) for 1956 age 18+ Medicare Wellness for age 65+ 2003 Zoster (shingles) series for age 0210/10/2010 08/15/2010 50+ (2 of 3) Tetanus booster 01/21/2017 01/21/2007, 06/14/2005 COVID-19 vaccine series (2 - 07/05/2021 06/14/2021 Pfizer series) Influenza for age 65+ 05/02/2022 05/22/2018, 04/28/2017, 05/21/2016, Additional history exists Pneumococcal series for age 65+ Completed 02/13/2006, 09/2003 Procedures Procedure Name Priority Date/Time Associated Diagnosis Comme nts AMB EPIDURAL Routine 05/21/2022 7:54 AM 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 from Last 3 Months Results ECHO COMPLETE WO CONTRAST (03/14/2022 2:50 PM CDT) P athologist Signature AORTIC VALVE 3 mmHg MEAN PG EJECTION 66 % FRACTION PEAK TR 2.2 m/s VELOCITY LVEDD 4.4 cm Anatomical Region Laterality Modality HEART Ultrasound Specimen (Source) Anatomical Collection Method Collection Time Re ceived Time Location / / Volume Laterality 03/14/2022 2:13 PM CDT Narrative 03/14/2022 4:53 PM CDT ECHOCARDIOGRAM BRAD DE ANDA ?Acces adalgisa#: ?? [id number] : ?1940 81 years Study Date : ?? 03/14/2022 2:13:52 PM Gender: M ? BP: ? 148/75 mmHg Height: 180.00 cm ? BSA: ?2.00 m? ?? Weight: 80.00 kg ?Tech: ? [email or web address] ?Referring MD: ELLEN HAMILTON [facility] Reading Location: MOBILE-OP Procedure: 2D, Color Doppler and Spectra l Doppler. Indication for study: Post covid-19 cond ition, unspecified Dyspnea Cardiac Rhythm: Normal sinus.Study quali ty: Fair. Final Impressions: 1. Normal left ventricular size, modera tely increased wall thickness, normal global systolic function, calculated EF of 66 %. 2. Right ventricular cavity size is nor mal, global systolic RV function is normal. 3. The mitral valve is normal, mild braxton ral regurgitation. Chamber Sizes and Function Normal left ventricular size, moderately increased wall thickness, normal global systolic function, calculated EF of 66 %. Left atrial size is normal. Right ventricular cavity size is normal, global sys tolic RV function is normal. RV wall thi ckness is normal. The right atrium is normal. Right atrial volume index is 18 ml/m? ??. Right atrial area is 15 cm? ??. The pulmonary artery is of normal size and origin. The sinus of Valsalva is normal sized. The ascending aorta is normal sized. Valves, RV Pressures and Diastolic Funct ion The aortic valve is trileaflet, no steno sis and no regurgitation. The mitral valve is normal in structure, mild mitral regurgitation. Spectral Doppler shows Grade 1 pattern of LV diastolic filling. The tricuspid valve is normal in structure. Tricuspid regurgitation is mild regurgitation. The tricuspid regurgitant velocity is 2.2 m/s, the estimated right ventricular systolic pressure is 19 mmHg plus ri ght atrial pressure. The pulmonic valve is normal. Trace pulmonary regurgitation. Masses, Effusion, Shunts There is no pericardial effusion. The in ferior vena cava is normal sized, respiratory size variation not well visualized. Interatrial septum is not well visualized. MEASUREMENTS AND CALCULATIONS 2-D Measurements and LV Function: LVID (d) 4.4 cm Planimetered EF 66 % LVID (s) 2.8 cm LV FS% (2D) ? 36 % IVS (d) ??1.4 cm LVOT diameter ?? 2.0 cm LVPW (d) 1.4 cm HR ?7 9 bpm Ao Sinus 4.1 cm LA Vol index ?26 ml/ m2 Asc Ao ?? 3.7 cm RA Vol index ?18 ml /m2 LA ? 4.0 cm RA area ? 1 5 cm?RV Max 4C (d) ?? 3.3 cm Diastology: Mitral ?Tissue Doppler ?Pulmonary veins E Peak 0.8 m/s ??e', Septum ? 0.07 m /s Pulm s ?56.5 cm/s A Peak 0.9 m/s ??e', Lateral ?0.07 m /s Pulm d ?42.1 cm/s E/A ?0.9 ?E/e' Average ?? 11. 59 ?Pulm s/d ratio ??1.34 DT ? 163 msec IVRT ?? 81 msec Aortic Valve: Vmax ? 1.1 m/s ??THONY (V) ?? 2.28 cm? ?? VTI ?0.25 m ?? THONY (I) ?? 2.56 cm? ?? LVOT V max 0.8 m/s ??Max PG ?5 mmHg LVOT VTI ?? 0.20 m ?? Mean PG ?? 3 mmHg SV ? 63 ml ?Dim Index 0.82 SV index ?? 32 ml/m? ?? CO ?5.0 l/min ?CI ?2.5 l/min/m? ?? Mitral Valve: MVA ?4.6 cm? ?? MV P 1/2 47 msec Tricuspid Valve and estimated PA pressur es: TR Vmax 2.2 m/s TAPSE 2.1 cm TR maxG 19 mmHg . This study was interpreted by an [facility] redited facility. CC: [facility] and [facility]. ??Final ?? Procedure Note oTm Felipe MD - 03/14/2022Format ting of this note might be different from the original. ECHOCARDIOGRAM BRAD DE ANDA : 1940 81 years Study Date: 03/01 2:13:52 PM Gender: M BP: 148/75 mmHg Height: 180.00 cm BSA: 2.00 m? ?? Weight: 80.00 kg Tech: [email or web address] Referring MD: ELLEN HAMILTON Site: [facility] Reading Location: MOBILE-OP Procedure: 2D, Color Doppler and Spectra l Doppler. Indication for study: Post covid-19 cond ition, unspecified Dyspnea Cardiac Rhythm: Normal sinus.Study quali ty: Fair. Final Impressions: 1. Normal left ventricular size, modera tely increased wall thickness, normal global systolic function, calculated EF of 66 %. 2. Right ventricular cavity size is nor mal, global systolic RV function is normal. 3. The mitral valve is normal, mild braxton ral regurgitation. Chamber Sizes and Function Normal left ventricular size, moderately increased wall thickness, normal global systolic function, calculated EF of 66 %. Left atrial size is normal. Right ventricular cavity size is normal, global systolic RV function is normal. RV wall thickness is normal. The right atrium is normal. Right atrial volume index is 18 ml/m? ??. Right atrial area is 15 cm? ??. The pulmonary artery is of normal size and origin. The sinus of Valsalva is normal sized. The ascending aorta is normal sized. Valves, RV Pressures and Diastolic Funct ion The aortic valve is trileaflet, no steno sis and no regurgitation. The mitral valve is normal in structure, mild mitral regurgitation. Spectral Doppler shows Grade 1 pattern of LV diastolic filling. The tricuspid valve is normal in structure. Tricuspid regurg itation is mild regurgitation. The tricuspid regurgitant velocity is 2.2 m/s, the estimated right ventricular systolic pressure is 19 mmHg plus right atrial pressure. The pulmonic valve is normal. Trace pulmonary regurgi tation. Masses, Effusion, Shunts There is no pericardial effusion. The in ferior vena cava is normal sized, respiratory size variation not well visualized. Interatrial septum is not well visualized. MEASUREMENTS AND CALCULATIONS 2-D Measurements and LV Function: LVID (d) 4.4 cm Planimetered EF 66 % LVID (s) 2.8 cm LV FS% (2D) 36 % IVS (d) 1.4 cm LVOT diameter 2.0 cm LVPW (d) 1.4 cm HR 79 bpm Ao Sinus 4.1 cm LA Vol index 26 ml/m2 Asc Ao 3.7 cm RA Vol index 18 ml/m2 LA 4.0 cm RA area 15 cm? ?? RV Max 4C (d) 3.3 cm Diastology: Mitral Tissue Doppler Pulmonary veins E Peak 0.8 m/s e', Septum 0.07 m/s Pulm s 56.5 cm/s A Peak 0.9 m/s e', Lateral 0.07 m/s Pulm d 42.1 cm/s E/A 0.9 E/e' Average 11.59 Pulm s/d rati o 1.34 DT 163 msec IVRT 81 msec Aortic Valve: Vmax 1.1 m/s THONY (V) 2.28 cm? ?? VTI 0.25 m THONY (I) 2.56 cm? ?? LVOT V max 0.8 m/s Max PG 5 mmHg LVOT VTI 0.20 m Mean PG 3 mmHg SV 63 ml Dim Index 0.82 SV index 32 ml/m? ?? CO 5.0 l/min CI 2.5 l/min/m? ?? Mitral Valve: MVA 4.6 cm? ?? MV P 1/2 47 msec Tricuspid Valve and estimated PA pressur es: TR Vmax 2.2 m/s TAPSE 2.1 cm TR maxG 19 mmHg . This study was interpreted by an [facility] redited facility. CC: [facility]. Final Ellen Hamilton MD ECHO ORD from Last 3 Months Insurance Payer Benefit Plan / Subscriber ID Effective Dates Phone Addre ss Type Group MEDICARE - PB MEDICARE PB [id number] 2003-Presen ATTN : CLAIMS USE ONLY ONLY t [address] [facility] [place] [address] BLUE CROSS BLUE CROSS OF [id number] 2016-Presen [address] [place] [address] Care Teams [employer] Relationship Specialty Start Date End Date Ellen Hamilton MD PCP - General Internal Medicine 10/08/131999 [place] [address]
== END 2022-05-21 09:03 | disposition home or self-care (01) ==
LOC: INJ CL 09:03
PROVIDERS: PCP Internal Medicine; Visit Provider Family Medicine
DX: M51.36 Other intervertebral disc degeneration, lumbar region (principal); M54.16 Radiculopathy, lumbar region
CPT/HCPCS: 62323; J0702; Q9966

== ENCOUNTER 2022-06-05 08:49 | Outpatient (CLI) | payer MEDICARE, BC, SELFPAY ==
--- OUTSIDE RECORDS SUMMARY | 2022-06-05 08:52 | XMS_ITS | Clinical Summary ---
:1940 Author Organization [facility] [place] [address] Care Team Providers Name Role Phone Ellen Hamilton MD Primary Care Provider Allergies No known active allergies Medications Medication Sig Dispensed Refills Start Date End Date Status MULTIVITAMIN TAB one daily 0 02/11/2007 Ac tive fexofenadine (GERARDO) 180 Take 1 tablet 0 4 Active mg tablet by mouth once daily with a meal. [id number] Takes 2 tabs 0 11/18/2014 Active c-mn (GLUCOSAMINE daily CHONDROITIN MAXSTR) 500-400 mg cap hydrochlorothiazide (HCTZ) Take 1 tablet 0 5 Active 25 mg tablet by mouth once daily. fluticasone (50 mcg per Inhale 1 [place] 1 Bottle 0 11/18/2014 Active actuation) nasal [...] Care Team Description 05/21/2022 Office Visit Donn Montanez, Procedu kacie (L5-S1 ILESI) 03/27/2022 Office Visit Donn Montanez, Musculo skeletal [...] Given: Yes Comments: cigar 2x/month during summer [facility] Alcohol Use Standard Drinks/Week Comments Yes 0 (1 standard drink = 0.6 oz pure alcoho l) occas Alcohol Habits Answer Date Recorded How often do you have a drink containing 4 or more times a w [place] 09/20/2020 alcohol? 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 herniation Lumbar radiculop athy Lumbar foraminal stenosis ECHO COMPLETE WO Routine 03/14/2022 2:50 PM Post covid-19 Resu lts for this CONTRAST CDT condition, procedure are i n unspecified the results Dyspnea section. from Last 3 Months Results AMB EPIDURAL STEROID INJECTION (05/21/2022 12:00 AM CDT) Narrative This result has an attachment that is no t available. Donn Montanez MD NEUROLOGY ORD ECHO COMPLETE WO CONTRAST (03/14/2022 2:50 PM [...] ECHOCARDIOGRAM BRAD DE ANDA ?Acces adalgisa#: ?? [id number] : ?1940 81 years Study Date : ?? 03/14/2022 2:13:52 PM Gender: M ? BP: ? 148/75 mmHg Height: 180.00 cm ? BSA: ?2.00 m? ?? Weight: 80.00 kg ?Tech: ? [id number] ?Referring MD: ELLEN HAMILTON Site: ? [facility] Reading Location: MOBILE-OP Procedure: 2D, [...] . [facility]. CC: [facility] and [facility]. ??Final ?? Procedure Note Tom Felipe MD - 03/14/2022Format ting of this note might be different from the original. ECHOCARDIOGRAM BRAD DEA NDA : 1940 81 years Study Date: 03/01 2:13:52 PM Gender: M BP: 148/75 mmHg Height: 180.00 cm BSA: 2.00 m? ?? Weight: 80.00 kg Tech: [email or web address] Referring MD: ELLEN HAMILTON Site: [facility] Reading Location: MOBILE-OP Procedure: 2D, Color [...] . [facility] CC[facility]. 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
--- OUTSIDE RECORDS SUMMARY | 2022-06-05 08:53 | XMS_ITS | Continuity of Care Document ---
:1940 Author Organization [facility] Care Team Providers Name Role Phone [facility] Unavailable Unavailable Problems Combined list of problems from Department of Defense and Veterans Affairs facilities. It does not include entries that were removed or entered in error. Problem Status Onset Problem Type Date of Comments Source Date Resolution Allergic Rhinitis [place] [facility] [id number][facility] Erectile [place] [facility] D[place] [facility] [id number]) HTN - Hypertension Active [place] [facility] [id number]) [facility]CS Hyperlipidemia ([facility] Active Condition [facility] [id number]) [facility] Nocturia due to Active Condition [place] benign prostatic [facility] hypertrophy Tear of left Active [place] [facility] rotator cuff [facility] Diagnosis: [facility] ICD-10-CM L29.9 [facility] Pruritus, unspecifiedwith Provider Comments: [...] DAY LIDOCAINE APPLY 1 [place] ACTIVE 02/10/2023 [id number] TRAUT, HERACLIO 02/12/ [place] 5% PATCH PATCH [...] TAB PSYLLIUM TAKE 1 ORALLY ACTIVE 11/13/2022 [id number] TRAUT,R IC 11/13/ [place] PWDR,ORAL TABLESPO 2 HARD L 2021 [place] V A ON BY HCS MOUTH EVERY DAY MIXED IN JUICE OR WATER DIRECTED TO HELP REGULATE STOOLS TO HELP HEMORRHO IDS. PSYLLIUM TAKE 1 ORALLY DISCONT 09/20/2021 [id number] TRAUT, HERACLIO 09/19/ [place] PWDR,ORAL TABLESPO INUED [...] HCS AT BEDTIME TRIAMCINOLO APPLY [place] 04/03/2022 [id number] TR AUT,HERACLIO 04/03/ [place] THIN LLY [...] atus Comments Source Given By Number Code Queen Producer COVID-19 2 complet PFR; [place] (PFIZER), 2020 ed [id number]; [place] [facility] M[facility], LNP-S, 02 HCS PF, 30 1 MCG/0.3 ML DOSE COVID-19 1 complet PFR; [place] (PFIZ[place] 2020 ed [id number]; [place] MRNA, LNP-S, 02 HCS PF, 30 1 MCG/0.3 ML DOSE INFLUENZA, complet [place] UNSPECIFIED 2019 ed [place] [facility] FORMULATION [facility] S INFLUENZA, complet [place] HIGH DOSE 2018 ed HEAL TH SEASONAL PNEUMOCOCCAL complet [facility] CONJUGATE PCV 2019 ed HEALTH 13 INFLUENZA complet [place] (HISTORICAL) 2003 ed O [place] H[facility] PNEUMOCOCCAL, 04/02/ 109 complet [place] UNSPECIFIED 2003 ed [facility] INFLUENZA complet [place] (HISTORICAL) 2002 ed [place] [facility] TD(ADULT) complet [place] UNSPECIFIED 1998 ed [place] [facility] Results Combined list of [...] METABOLIC [MASS/VOLUM /2020 No comment entered. IS [facility] PANEL+MG E] IN SERUM Ordering P rovider: GILBERT WONG OR PLASMA Report Releas ed Date/Time: Apr 02, 2021 12:19 PM Reporting Lab: [facility] [place] [address] Performing Lab: [facility] [address] [place] [address] BASIC UREA 13 8 - 26 04/02 Specimen Type: P LASMA [place] METABOLIC NITROGEN /2020 No comment en tered. IS [facility] PANEL+MG [MASS/VOLUM Ordering P rovider: GILBERT WONG E] IN SERUM Report Rele ased Date/Time: Apr 02, 2021 12:19 PM OR PLASMA Reporting Lab : [facility] [address] [place] [address] Performing Lab: [facility] [address] [place] [address] BASIC GLUCOSE 79 74 - 100 04/02 Specimen Type: PLASMA [place] METABOLIC [MASS/VOLUM /2020 No comment entered. IS [facility] PANEL+MG E] IN SERUM Ordering P rovider: GILBERT WONG OR PLASMA Report Releas ed Date/Time: Apr 02, 2021 12:19 PM Reporting Lab: [facility] [place] [address] Performing Lab: [facility] [place] [address] BASIC SODIUM 136 136 - 145 04/02 Specimen Type: PLASMA [place] METABOLIC [MOLES/VOLU /2020 No comment entered. IS [facility] PANEL+MG ME] IN Ordering Provi naveed: GILBERT WONG SERUM OR Report Release d Date/Time: Apr 02, 2021 12:19 PM PLASMA Reporting Lab: [facility] [place] [address] Performing Lab: [facility] [place] [address] BASIC POTASSIUM 3.3 3.5 - 5.1 04/02 L Specimen Typ e: PLASMA [place] METABOLIC [MOLES/VOLU /2020 No comment entered. IS [facility] PANEL+MG ME] IN Ordering Provi naveed: GILBERT WONG SERUM OR Report Release d Date/Time: Apr 02, 2021 12:19 PM PLASMA Reporting Lab: [facility] [place] [address] Performing Lab: [facility] [place] [address] BASIC CHLORIDE 96 98 - 107 04/02 L Specimen Type: PLASMA [place] METABOLIC [MOLES/VOLU /2020 No comment entered. IS [facility] PANEL+MG ME] IN Ordering Provi naveed: GILBERT WONG SERUM OR Report Release d Date/Time: Apr 02, 2021 12:19 PM PLASMA Reporting Lab: [facility] [address] [facility] [address] Performing Lab: [facility] [address] [facility] [address] BASIC CARBON 32 22 - 29 08 H Specimen Type: P LASMA [place] METABOLIC DIOXIDE, /2020 No comment en tered. IS [facility] PANEL+MG TOTAL Ordering Provi naveed: GILBERT WONG [MOLES/VOLU Report Rele ased Date/Time: Apr 02, 2021 12:19 PM ME] IN Reporting Lab: [facility] SERUM OR [address] [place] [address] PLASMA Performing Lab: [facility] [address] [place] [address] BASIC CALCIUM 9.1 8.4 - 10.2 04/02 Specimen Type : PLASMA [place] METABOLIC [MASS/VOLUM /2020 No comment entered. IS [facility] PANEL+MG E] IN SERUM Ordering P rovider: GILBERT WONG OR PLASMA Report Rele ed Date/Time: Apr 02, 2021 12:19 PM Reporting Lab: [facility] [address] [place] [address] Performing Lab: [facility] [address] [place] [address] BASIC MAGNESIUM 2.1 1.6 - 2.6 04/02 Specimen Typ e: PLASMA [place] METABOLIC [MASS/VOLUM /2020 No comment entered. IS [facility] PANEL+MG E] IN SERUM Ordering P rovider: GILBERT WONG OR PLASMA Report [facility] ed Date/Time: Apr 02, 2021 12:19 PM Reporting Lab: [facility] [address] [place] [address] Performing Lab: [facility] [address] [place] [address] BASIC ANION GAP 8 5 - 15 04/02 Specimen Type: PLASMA [place] METABOLIC IN SERUM OR /2020 No comment entered. IS [facility] PANEL+MG PLASMA Ordering Provi naveed: GILBERT WONG Report Released Date/Time: Apr 02, 2021 12:19 PM Reporting Lab: [facility] [address] [place] [address] Performing Lab: [facility] [address] [place] [address] BASIC GLOMERULAR 93 60 04/02 Specimen Type : PLASMA [place] METABOLIC FILTRATION /2020 No comment entered. IS [facility] PANEL+MG RATE/1.73 Ordering Pro vider: GILBERT WONG SQ Report Released Date/Time: Apr 02, 2021 12:19 PM M.PREDICTED Reporting L ab: [facility] [VOLUME [address] [place] [address] RATE/AREA] Performing L ab: [facility] IN SERUM, [address] [facility] [address] PLASMA OR BLOOD BY CREATININE- BASED FORMULA (CKD-EPI) CBC LEUKOCYTES 8.75 4.0 - 11.0 04/02 Specimen T ype: BLOOD [place] [#/VOLUME] /2020 No comment en tered. IS [place] [facility] IN BLOOD BY Ordering Pr ovider: GILBERT WONG AUTOMATED Report Releas ed Date/Time: Apr 02, 2021 12:19 PM COUNT Reporting Lab: [facility] [address] [place] [address] Performing Lab: [facility] [address] [place] [address] CBC ERYTHROCYTE 4.51 4.6 - 6.2 04/02 L Specimen T ype: BLOOD [place] S /2020 No comment enter ed. [facility] [#/VOLUME] Ordering Pro vider: GILBERT WONG IN BLOOD BY Report Rele ased Date/Time: Apr 02, 2021 12:19 PM AUTOMATED Reporting Lab : [facility] COUNT [address] [place] [address] Performing Lab: [facility] [address] [place] [address] CBC HEMOGLOBIN 14.3 13.5 - 04/02 Specimen Type : BLOOD [place] [MASS/VOLUM 17.9 /2020 No comment e ntered. IS [facility] [facility] E] IN BLOOD Ordering Pr ovider: GILBERT WONG Report Released Date/Time: Apr 02, 2021 12:19 PM Reporting Lab: [facility] [address] [place] [address] Performing Lab: [facility] [address] [place] [address] CBC HEMATOCRIT 41.4 41 - 54 04/02 Specimen Type : BLOOD [place] [VOLUME /2020 No comment enter ed. [place] [facility] [facility] FRACTION] Ordering Prov ider: GILBERT WONG OF BLOOD BY Report Rele ased Date/Time: Apr 02, 2021 12:19 PM AUTOMATED Reporting Lab : [facility] COUNT [address] [place] [address] Performing Lab: [facility] [address] [facility] [address] CBC MCV 91.8 80 - 100 04/02 Specimen Type: BLOOD [place] [ENTITIC /2020 No comment ente red. [facility] VOLUME] BY Ordering Pro vider: GILBERT WONG AUTOMATED Report Releas ed Date/Time: Apr 02, 2021 12:19 PM COUNT Reporting Lab: [facility] [address] [place] [address] Performing Lab: [facility] [address] [place] [address] CBC MCH 31.7 27 - 33 04/02 Specimen Type: B LOOD [place] [ENTITIC /2020 No comment ente red. IS [facility] MASS] BY Ordering Provi naveed: GILBERT WONG AUTOMATED Report Releas ed Date/Time: Apr 02, 2021 12:19 PM COUNT Reporting Lab: [facility] [address] [facility] [address] Performing Lab: [facility] [address] [facility] [address] CBC MCHC 34.5 32.0 - 08 Specimen Type: B LOOD [place] [MASS/VOLUM 37.5 /2020 No comment e ntered. IS [facility] E] BY Ordering Provid er: GILBERT WONG AUTOMATED Report Releas ed Date/Time: Apr 02, 2021 12:19 PM COUNT Reporting Lab: [facility] [address] [place] [address] Performing Lab: [facility] [address] [facility] [address] CBC PLATELETS 245 150 - 400 04/02 Specimen Typ e: BLOOD [place] [#/VOLUME] /2020 No comment en tered. IS [facility] IN BLOOD BY Ordering Pr ovider: GILBERT WONG AUTOMATED Report Releas ed Date/Time: Apr 02, 2021 12:19 PM COUNT Reporting Lab: [facility] [address] [facility] [address] Performing Lab: [facility] [address] [place] [address] CBC PLATELET 10.0 7.4 - 10.4 04/02 Specimen Typ e: BLOOD [place] MEAN VOLUME /2020 No comment e ntered. IS [facility] [ENTITIC Ordering Provi naveed: GILBERT WONG VOLUME] IN Report Relea sed Date/Time: Apr 02, 2021 12:19 PM BLOOD BY Reporting Lab: [facility] AUTOMATED [address] [facility] [address] COUNT Performing Lab: [facility] [address] [facility] [address] CBC ERYTHROCYTE 12.8 11.5 - 04/02 Specimen Typ e: BLOOD [place] DISTRIBUTIO 14.5 No comment e ntered. IS [facility] N WIDTH Ordering Provid er: GILBERT WONG [RATIO] BY Report Relea sed Date/Time: Apr 02, 2021 12:19 PM AUTOMATED Reporting Lab : [facility] COUNT [address] [place] [address] Performing Lab: [facility] [address] [place] [address] LIPID CHOLESTEROL 176 <199 - 199 04/02 Specimen Type: PLASMA [place] PANEL,NON [MASS/VOLUM /2020 No comment entered. IS [facility] E] IN SERUM Ordering P rovider: TRAUT,GILBERT L OR PLASMA Report Releas ed Date/Time: Apr 02, 2021 12:19 PM Reporting Lab: [facility] [address] [place] [address] Performing Lab: [facility] [address] [place] [address] LIPID CHOLESTEROL 92 40 04/02 Specimen Typ e: PLASMA [place] PANEL,NON IN HDL /2020 No comment ent ered. IS [facility] [MASS/VOLUM Ordering P rovider: TRAPATRICEGIBLERT L E] IN SERUM Report Rele ased Date/Time: Apr 02, 2021 12:19 PM OR PLASMA Reporting Lab : [facility] [address] [place] [address] Performing Lab: [facility] [address] [place] [address] LIPID CHOLESTEROL 72 <99 - 99 04/02 Specimen Ty pe: PLASMA [place] PANEL,NON IN LDL /2020 No comment ent ered. IS [facility] [MASS/VOLUM Ordering P rovider: TRAPATRICE,GILBERT L E] IN SERUM Report Rele ased Date/Time: Apr 02, 2021 12:19 PM OR PLASMA Reporting Lab : [facility] BY [address] [place] [address] CALCULATION Performing Lab: [facility] [address] [place] [address] LIPID CHOLESTEROL 12 <29 - 29 04/02 Specimen Ty pe: PLASMA [place] PANEL,NON IN VLDL /2020 No comment ent ered. IS [facility] [MASS/VOLUM Ordering P rovider: TRAUTGILBERT L E] IN SERUM Report Rele ased Date/Time: Apr 02, 2021 12:19 PM OR PLASMA Reporting Lab : [facility] BY [address] [place] [address] CALCULATION Performing Lab: [facility] [address] [place] [address] LIPID CHOLESTEROL 84 <129 - 129 04/02 Specimen Type: PLASMA [place] PANEL,NON NON HDL /2020 No comment ent ered. IS [facility] [MASS/VOLUM Ordering P rovider: GILBERT WONG] IN SERUM Report Rele ased Date/Time: Apr 02, 2021 12:19 PM OR PLASMA Reporting Lab : [facility] [address] [place] [address] Performing Lab: [facility] [address] [place] [address] LIPID TRIGLYCERID 60 <149 - 149 04/02 Specimen Type: PLASMA [place] PANEL,NON E /2020 No comment ent ered. IS [facility] [MASS/VOLUM Ordering P rovider: GILBERT WONG] IN SERUM Report Rele ased Date/Time: Apr 02, 2021 12:19 PM OR PLASMA Reporting Lab : [facility] [address] [place] [address] Performing Lab: [facility] [address] [place] [address] Encounters Combined list of: 1) Encounters from Department of Veterans Affairs facilities going back up to the last 18 months. 2) Encounters from the Department of [facility] facilities going back up to 280 months. Location Location Encounter Encounter Reason Attending ADM DC Stat us Disposition Source Details Type Number For Provider Date Date Visit Outpatient [id number] 02/20 [place] Encounter [id number] /2020 [facility] Outpatient [id number] 02/27 [place] Encounter [id number] /2020 [facility] OFFICE O/P [id number] Diagnos AROLDO WONG 04/02 [place] EST MOD [id number] is: JOHN L /2020 [facility] 30-39 MIN ICD-10- HCS CM L29.9 Pruritu s, unspeci fied
with Provide r Comment s: Pruritu s, unspeci fied Social History Combined list of available smoking, tobacco, and other social history [facility]. Social History Type Response Date Comment Source Tobacco smoking status [place] FORMER USER 04/02/2021 [facility]IS History of tobacco use [place] QU[place] 15 YRS 04/02/2021 [facility] OR MORE History of tobacco use [place] 15 YRS 08/16/2019 [place] [facility] Advance Directives List of completed, amended, or rescinded Advance Directives on record at Department of [facility] facilities. An actual copy of the Directive is not included. Date Advance Directive Provider Source 04/02/[address] ADV[address] [facility]
--- NOTE | 2022-06-05 09:00 | CRLHL7_ITS ---
For Patients: As a result of the 21st Century Cures Act, medical imaging exams and procedure reports are released immediately into your electronic medical record. You may view this report before your referring provider. If you have questions, please contact your health care provider. Indication: Pulmonary nodule Technique: Noncontrast CT chest Comparison: CT chest 03/14/2022 Findings: Normal caliber thoracic aorta coronary calcification heart size is normal. Tiny pericardial effusion or thickening. No effusion. Apical fibrotic change. Mild centrilobular emphysema. 4 millimeter nodule posterior aspect of the right lower lobe series 3, image 48 stable. 9 millimeter no nodule left lower lobe series 3, image 51. No new nodules are seen. Lingular and basilar atelectasis clips near the GE junction and upper abdomen. Cortical scarring left kidney and low-attenuation lesions incompletely assessed. No suspicious bony lesions. Impression: 1. Stable pulmonary nodules measuring up to 9 millimeters of per Fleischner society guidelines for FLEISCHNER SOCIETY GUIDELINES - SOLID NODULES: SINGLE LOW RISK - nodule less than 6 mm: No routine follow-up. - nodule 6-8 mm: CT at 6-12 months, then consider CT at 18-24 months. - nodule greater than 8 mm: Consider CT at 3 months, PET/CT or tissue sampling. SINGLE HIGH RISK - nodule less than 6 mm: Optional CT at 12 months. - nodule 6-8 mm: CT at 6-12 months, then CT at 18-24 months. - nodule greater than 8 mm: Consider CT at 3 months, PET/CT or tissue sampling. MULTIPLE LOW RISK - nodule less than 6 mm: No routine follow-up. - nodule 6-8 mm: CT at 3-6 months, then consider CT at 18-24 months. - nodule greater than 8 mm: CT at 3-6 months, then consider CT at 18-24 months. MULTIPLE HIGH RISK - nodule less than 6 mm: Optional CT at 12 months. - nodule 6-8 mm: CT at 3-6 months, then at 18-24 months. - nodule greater than 8 mm: CT at 3-6 months, then at 18-24 months. Please note that all CT scans at this facility use dose modulation, iterative reconstruction, and/or weight-based dosing when appropriate to reduce radiation dose to as low as reasonably achievable. Dictated by Gracie Knox MD @ 06/05/2022 10:44:04 AM (Electronically Signed)
== END 2022-06-05 08:50 | disposition home or self-care (01) ==
PROVIDERS: PCP Internal Medicine; Visit Provider Internal Medicine
DX: R91.1 Solitary pulmonary nodule (principal)
CPT/HCPCS: 71250

== ENCOUNTER 2022-11-05 07:25 | Outpatient (CLI) | payer MEDICARE, BC, SELFPAY | END 2022-11-05 07:26 | disposition home or self-care (01) | LOC: NFLDREF 11-08 10:43 | PROVIDERS: PCP Internal Medicine; Referring Provider Internal Medicine; Visit Provider Internal Medicine | DX: E78.5 Hyperlipidemia, unspecified (principal); I10 Essential (primary) hypertension | CPT/HCPCS: 80048; 80061 ==

== ENCOUNTER 2023-08-06 14:29 | Emergency (ER) | payer MEDICARE, BC, SELFPAY ==
[2023-08-06 14:39] VITALS: BP 147/61; PULSE 75; RESP 17; TEMP 36.4; O2SAT 97; BMI 24.5
--- NOTE | 2023-08-06 15:06 | CRLHL7_ITS ---
For Patients: As a result of the Century Cures Act, medical imaging exams and procedure reports are released immediately into your electronic medical record. You may view this report before your referring provider. If you have questions, please contact your health care provider. INDICATION: Fall. TECHNIQUE: CT head without contrast. COMPARISON: None. FINDINGS: CSF spaces: Within normal limits for age. Brain parenchyma and extra-axial spaces: The figueroa-white differentiation is normal. No sign of mass, hemorrhage, or midline shift. No extra-axial fluid collection. Skull base and calvarium: The visualized paranasal sinuses and mastoid air cells demonstrate no acute or significant findings. The visualized orbits are grossly unremarkable. No skull fractures. IMPRESSION: No acute intracranial abnormality on this noncontrast CT scan. Please note that all CT scans at this facility use dose modulation, iterative reconstruction, and/or weight-based dosing when appropriate to reduce radiation dose to as low as reasonably achievable. Dictated by Alexi Schmitz MD @ 08/06/2023 4:18:12 PM (Electronically Signed)
--- NOTE | 2023-08-06 15:06 | ED_ITS ---
HPI - General Adult General Chief complaint: Fall/Minor Trauma Stated complaint: fell on ice hit back of head Time Seen by Provider: 08/06/23 14:46 History of Present Illness HPI narrative: 83 year white male fell this morning on ice when he stepped out of his pickup truck. He landed on the back of his head. He has a small bump in the occipital area, no bleeding or laceration. He has really no headache or nausea or vomiting, he had no loss of conscious. His brother had a what sounds like epidural or subdural hematoma after he fell and the patient is concerned about that and wishes not to go down that same road. He is not on any blood thinners. He reports his balance has been good today and he has had no vomiting or nausea. Related Data Home Medications Medication Instructions Recorded Confirmed calcium polycarbophil 625 mg tablet 625 mg PO BID 04/05/22 11/11/22 cetirizine 10 mg tablet 10 mg PO .Bedtime 04/05/22 11/11/22 cholecalciferol (vitamin D3) 125 5,000 unit PO DAILY 04/05/22 11/11/22 mcg (5,000 unit) tablet docusate calcium 240 mg capsule 1 mg PO BID 04/05/22 11/11/22 finasteride 5 mg tablet 5 mg PO DAILY 04/05/22 11/11/22 glucosamine [id number] 1 tab PO QDAY 04/05/22 11/11/22 500 mg-167 mg-400 mg tablet melatonin 10 mg tablet 10 mg PO .Bedtime 04/05/22 11/11/22 methylcellulose (laxative) 2 g PO BID 04/05/22 11/11/22 multivitamin (Multiple Vitamins 1 tab PO QDAY 04/05/22 11/11/22 tablet) psyllium husk 0.52 gram capsule 1 g PO PRN 04/05/22 11/11/22 diphenhydramine HCl 25 mg tablet 25 mg PO .Bedtime 05/03/22 11/11/22 tadalafil 5 mg tablet 5 mg PO PRN 05/03/22 11/11/22 osteo biflex 1 tab PO DAILY 05/20/22 11/11/22 Previous Rx's Medication Instructions Recorded tamsulosin 0.4 mg capsule 0.4 mg PO DAILY #90 caps 10/03/22 fluticasone propionate 50 2 spray intranasal DAILY #3 ea 11/11/22 mcg/actuation nasal spray,suspension hydrochlorothiazide 25 mg tablet 25 mg PO DAILY #90 tabs 11/11/22 simvastatin 20 mg tablet 20 mg PO .Bedtime #90 tabs 11/11/22 Allergies Allergy/AdvReac Type Severity Reaction Status Date / Time No Known Drug Allergies Allergy Verified 11/11/22 12:41 Review of Systems Status of ROS: Reports: 6 or more systems reviewed and unremarkable except as noted in History and below PFSH PFSH Surgical History Olecranon bursitis of left elbow ?M70.22 - Olecranon bursitis, left elbow (ICD-10) History of malignant melanoma of skin ?Z85.820 - Personal history of malignant melanoma of skin (ICD-10) History of squamous cell carcinoma of skin ?Z85.828 - Personal history of other malignant neoplasm of skin (ICD-10) History of basal cell carcinoma of skin ?Z85.828 - Personal history of other malignant neoplasm of skin (ICD-10) History of cataract extraction with lens replacement 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 Live in [place] in his own home. Active, enjoys golfing. Alcohol 1-2 per night during happy hour. No illicit. Non-smoker. Smoking Status: Former smoker What tobacco products do you use: cigarettes Smoking quit date/years: <= 15 years ago and cigars Do you use any of these nicotine containing products: None Second hand tobacco smoke exposure: No How often do you have a drink containing alcohol: 4 or more times a week Alcohol type: hard liquor How many standard drinks containing alcohol do you have on a typical day: 1 or 2 How often do you have six or more drinks on one occasion: Never AUDIT-C Alcohol total score: 4 Non-prescribed substance use: denies use Caffeine: Yes Little interest or pleasure in doing things: not at all Feeling down, depressed, or hopeless: not at all service: No Exam Narrative: Exam Narrative: Objective: Vital signs are normal other than slightly elevated systolic blood pressure He is alert orient x3 no distress There is a small bump over the occiput of the scalp there is no palpable step- off, there is no bleeding or lacerations. There is no facial asymmetry, neck is supple in the midline no neck tenderness full range of motion of the neck Neurologic upper lower extremities unremarkable Const: Vital Signs, click to edit/add: Vital Signs - 24 hr 08/06/23 14:39 Temperature 97.6 F Pulse Rate [Pulse Oximeter] 75 Respiratory Rate 17 Blood Pressure [Ri ght Upper Arm] 147/61 H Pulse Oximetry 97 Course Vital Signs Vital signs: Initial Vital Signs Temperature 97.6 F 08/06/23 14:39 Temperature Source Temporal Artery Scan 08/06/23 14:39 Pulse Rate 75 08/06/23 14:39 Respiratory Rate 17 08/06/23 14:39 Blood Pressure 147/61 H 08/06/23 14:39 Blood Pressure Mean 89 08/06/23 14:39 Pulse Oximetry 97 08/06/23 14:39 Vital Signs Temperature 97.6 F 08/06/23 14:39 Pulse Rate 75 08/06/23 14:39 Respiratory Rate 17 08/06/23 14:39 Blood Pressure 147/61 H 08/06/23 14:39 Pulse Oximetry 97 08/06/23 14:39 Temperature 97.6 F 08/06/23 14:39 Pulse Rate 75 08/06/23 14:39 Respiratory Rate 17 08/06/23 14:39 Blood Pressure 147/61 H 08/06/23 14:39 Pulse Oximetry 97 08/06/23 14:39 Medical Decision Making MDM Narrative Medical decision making narrative: 83-year-old very healthy man on not on blood thinners with a fall in the back of the head that was pretty significant. He has got a good hematoma there under the scalp, there is no palpable step-off. I think a CT scan of the head would be appropriate to rule out bleed or fracture. I have low suspicion for in significant injury, but he is of advanced age in very healthy and I think looking at the CT would be quite appropriate. Neurologically he is intact. Addendum 3:29 p.m.: The patient strongly wished to go home. I had had a quick look at his head CT and by my read I do not see any obvious fracture or bleeding. Will await right Radiology overreading and we can let the patient know if there is any abnormalities on his CT scan. Otherwise recommend light activity, fluids, Tylenol as needed, recheck as needed. Discharge Plan Discharge Clinical Impression: Closed head injury Patient Disposition: Home, Self-Care Condition: Stable Additional Instructions: Recommend light activity for the next week, Tylenol as needed for discomfort, return as needed. Recheck with regular doctor as needed, if any headaches or difficulty please return to the ED or see your regular doctor. Activity Level: Light activity Activity Detail: X1 week Discharge Diet: Regular Prescriptions: No Action osteo biflex 1 tab PO DAILY melatonin 10 mg tablet 10 mg PO .Bedtime cholecalciferol (vitamin D3) 125 mcg (5,000 unit) tablet 5,000 unit PO DAILY psyllium husk 0.52 gram capsule 1 g PO PRN methylcellulose (laxative) Powder 2 g PO BID calcium polycarbophil 625 mg tablet 625 mg PO BID docusate calcium 240 mg capsule 1 mg PO BID multivitamin [Multiple Vitamins] Tablet 1 tab PO QDAY glucosamine [id number]-uas-[id number] 500-167-400 mg tablet 1 tab PO QDAY Rx Instructions: give with meal/snack finasteride 5 mg tablet 5 mg PO DAILY cetirizine 10 mg tablet 10 mg PO .Bedtime diphenhydramine HCl 25 mg tablet 25 mg PO .Bedtime simvastatin 20 mg tablet 20 mg PO .Bedtime Qty: 90 3RF hydrochlorothiazide 25 mg tablet 25 mg PO DAILY Qty: 90 3RF fluticasone propionate 50 mcg/actuation spray,suspension 2 spray intranasal DAILY Qty: 3 3RF tadalafil 5 mg tablet 5 mg PO PRN Patient Comments: TAKE 1 TABLET BY MOUTH ONCE DAILY NEEDED FOR ERECTILE DYSFUNCTION .TAKE 30 MINUTES BEFORE SEXUAL ACTIVITY tamsulosin 0.4 mg capsule 0.4 mg PO DAILY Qty: 90 3RF Follow Up/Referrals: Ellen Hamilton MD [Primary Care Provider] - Stand Alone Forms: [facility] Info Instructions
--- NOTE | 2023-08-06 15:16 | ED.NURSE ---
LEFT posterior side of head a small bump is noted that is purple/ red in color. There is a small scratch through this bump. Pt denies any pain unless the area is pushed on.
== END 2023-08-06 15:31 | disposition home or self-care (01) ==
PROVIDERS: Emergency Provider Family Medicine; PCP Internal Medicine
DX: S09.90XA Unspecified injury of head, initial encounter (principal); W00.9XXA Unspecified fall due to ice and snow, initial encounter
CPT/HCPCS: 70450; 99283; 99284

== ENCOUNTER 2023-10-17 14:02 | Outpatient (CLI) | payer MEDICARE, BC, SELFPAY ==
--- OUTSIDE RECORDS SUMMARY | 2023-10-17 14:05 | XMS_ITS | Continuity of Care Document ---
Author Name [facility] Organization [facility] Care Team Providers Care Adjunct Spanish Instructor Name Role Phone [facility] Unavailable Unavailable Problems Combined list of problems from Department of [facility] and [facility] facilities. It does not include entries that were removed or entered in error. Problem Status Onset Date Problem Type Date of Resolution Comments Source Allergic Rhinitis ([facility] [id number]) Active Condition [facility] Erectile Dysfunction ([facility] [id number]) Active Condition [facility] HTN - Hypertension ([facility] [id number]) Active Condition [facility] Hyperlipidemia ([facility] [id number]) Active Condition [facility] Nocturia due to benign prostatic hypertrophy Active Condition [facility] Tear of left rotator cuff Active Condition [facility] Diagnosis: ICD-10-CM Z00.01 Encounter for general adult medical exam w abnormal findings Active Diagnosis [facility] Diagnosis: ICD-10-CM Z00.00 Encntr for general adult medical exam w/o abnormal findings Active Diagnosis [facility] Medications Combined list of outpatient medications from [facility] of [facility] facilities.Medications provided include 1) outpatient medications from the last 15 months, and 2) patient-reported medications. Medication Details Route Status Patient Instructions Prescription Expires Prescription Number Last Dispense Date Ordering Provider Order Date Source CALCIUM POLYCARBOPH IL TAB TAKE ACTIVE TRAUT,HERACLIO HARD L 2020 [facility] CETIRIZINE TAB TAKE ACTIVE TRAUT,HERACLIO HARD L 2020 [facility] DOCUSATE NA 100MG CAP TAKE 2 CAPSULES BY MOUTH PRN ORALLY ACTIVE TRAUT,HERACLIO HARD L 2020 [facility] FINASTERIDE 5MG TAB TAKE ONE TABLET BY MOUTH EVERY DAY ORALLY ACTIVE TRAUT,HERACLIO HARD L 2020 [facility] FLUTICASONE PROPIONATE 50MCG/SPRAY SOLN,NASAL, 16GM SPRAY 2 SPRAYS IN EACH NOSTRIL EVERY DAY NEEDED NASAL ACTIVE TRAUT,HERACLIO HARD L 2019 [facility] HYDROCHLORO THIAZIDE 25MG TAB TAKE ONE TABLET BY MOUTH EVERY DAY ORALLY ACTIVE TRAUT,HERACLIO HARD L 2019 [facility] LIDOCAINE 5% PATCH APPLY 1 PATCH TOPICALL Y EVERY DAY NEEDED FOR PAIN WEAR FOR 12 HOURS AND THEN REMOVE TOPICA LLY ACTIVE 09/17/2024 [id number] BRADLEYANDREW 2023 [facility] [place] 5% PATCH APPLY 1 PATCH TOPICALL Y EVERY DAY NEEDED FOR PAIN WEAR FOR 12 HOURS AND THEN REMOVE TOPICA LLY DISCONT INUED 09/21/2023 [id number] TONIA,ZULAY NA 2022 [facility] P[facility]PLY 1 PATCH TOPICALL Y EVERY DAY NEEDED FOR PAIN WEAR FOR 12 HOURS AND THEN REMOVE TOPICA LLY DISCONT INUED 02/10/2023 [id number] TRAUT,HERACLIO HARD L 2021 [facility] METHYLCELLU LOSE TAB TAKE BY MOUTH ORALLY ACTIVE TRAUT,HERACLIO HARD L 2020 [facility] MULTIVITS W/MINERALS( NO VIT K) TAB TAKE ACTIVE TRAUT,HERACLIO HARD L 2020 [facility] PSYLLIUM PWDR,ORAL TAKE 1 TABLESPO ON BY MOUTH EVERY DAY MIXED IN JUICE OR WATER DIRECTED TO HELP REGULATE STOOLS TO HELP HEMORRHO IDS. ORALLY ACTIVE 09/17/2024 [id number] BRADLEYANDREW 2023 [facility] PSYLLIUM PWDR,ORAL TAKE 1 TABLESPO ON BY MOUTH EVERY DAY MIXED IN JUICE OR WATER DIRECTED TO HELP REGULATE STOOLS TO HELP HEMORRHO IDS. ORALLY DISCONT INUED 09/21/2023 [id number] ZULAY RANDALL NA 2022 [facility] TADALAFIL TAB TAKE 5MG BY MOUTH PRN ORALLY ACTIVE TRAUT,HERACLIO HARD L 2020 [facility] TAMSULOSIN HCL 0.4MG CAP TAKE 1 CAPSULE BY MOUTH AT BEDTIME ORALLY ACTIVE TRAUT,HERACLIO HARD L 2020 [facility] Immunizations Combined list of available immunizations from the Department of Defense and Veterans Affairs facilities. Immunization Series Date Given Administered By Site Reaction Lot Number CVX Code Drug Dispatcher Clerk Status Comments Source ZOSTER RECOMBINANT 2 2022 YAZMIN DE OLIVEIRA AMY Patterson LEFT DELTO ID [id number] 187 complet ed @@ ENTER DILUENT LOT# HERE [id number] [facility] INFLUENZA, HIGH-DOSE, QUADRIVALENT 2021 197 complet ed [facility] INFLUENZA, UNSPECIFIED FORMULATION 2021 88 complet ed [facility] INFLUENZA, HIGH-DOSE, QUADRIVALENT 2020 197 complet ed [facility] COVID-19 (PFIZER), MRNA, LNP-S, PF, 30 MCG/0.3 ML DOSE 2020 208 complet ed [facility] COVID-19 (PFIZER), MRNA, LNP-S, PF, 30 MCG/0.3 ML DOSE 2 2020 208 complet ed PFR; [id number]; 1 [facility] COVID-19 (PFIZER), MRNA, LNP-S, PF, 30 MCG/0.3 ML DOSE 1 2020 208 complet ed PFR; [id number]; 1 [facility] ZOSTER RECOMBINANT 2020 187 complet ed [facility] INFLUENZA, INJECTABLE, QUADRIVALENT 2019 158 complet ed [facility] INFLUENZA, UNSPECIFIED FORMULATION 2019 88 complet ed [facility] INFLUENZA, HIGH DOSE SEASONAL 2018 135 complet ed [facility] INFLUENZA, HIGH DOSE SEASONAL 2018 135 complet ed [facility] PNEUMOCOCCAL CONJUGATE PCV 13 2018 133 complet ed [facility] INFLUENZA, TRIVALENT, ADJUVANTED 2017 168 complet ed [facility] INFLUENZA, TRIVALENT, ADJUVANTED 2016 168 complet ed [facility] INFLUENZA, HIGH DOSE SEASONAL 2015 135 complet ed [facility] INFLUENZA, HIGH DOSE SEASONAL 2014 135 complet ed [facility] PNEUMOCOCCAL CONJUGATE PCV 13 2014 133 complet ed [facility] TDAP 2014 115 complet ed [facility] INFLUENZA, INJECTABLE, QUADRIVALENT, PRESERVATIVE FREE 2013 150 complet ed [facility] INFLUENZA, SEASONAL, INJECTABLE 2012 141 complet ed [facility] INFLUENZA, SEASONAL, INJECTABLE 2011 141 complet ed [facility] INFLUENZA, SEASONAL, INJECTABLE 2010 141 complet ed [facility] ZOSTER LIVE 2009 121 complet ed [facility] INFLUENZA, SEASONAL, INJECTABLE, PRESERVATIVE FREE 2009 140 complet ed [facility] INFLUENZA, INJECTABLE, QUADRIVALENT, PRESERVATIVE FREE 2009 150 complet [facility] NOVEL INFLUENZA-H1N 1-09, ALL FORMULATIONS 2009 128 complet [facility] PNEUMOCOCCAL POLYSACCHARID E PPV23 2005 33 complet [facility] TD (ADULT), 2 LF TETANUS TOXOID, PRESERVATIVE FREE, ADSORBED 2004 09 complet [facility] INFLUENZA (HISTORICAL) 2003 88 complet ed [facility] PNEUMOCOCCAL, UNSPECIFIED FORMULATION 2003 NONE 109 complet [facility] INFLUENZA (HISTORICAL) 2002 88 complet [facility] TD(ADULT) UNSPECIFIED FORMULATION 1998 139 complet [facility] Results Combined list of recent chemistry, hematology and other laboratory results from Department of Defense and Veterans Affairs, ranging from 15 months to all on record, depending upon the facility. Order Name Results Value Reference Range Date Interpretation Specimen Comments Source BASIC METABOLIC PANEL+MG CREATININE [MASS/VOLUM E] IN SERUM OR PLASMA 0.9 0.7 - 1.2 09/17 Specimen Type: PLASMA No comment entered. Ordering Provider: CRISTIANA RANDALL Report Released Date/Time: Sep 20, 2022 08:34 AM Reporting Lab: [facility] [address] Performing Lab: [facility] [address] [facility] BASIC METABOLIC PANEL+MG UREA NITROGEN [MASS/VOLUM E] IN SERUM OR PLASMA 19 8 - 26 09/17 Specimen Type: PLASMA No comment entered. Ordering Provider: CRISTIANA RANDALL Report Released Date/Time: Sep 20, 2022 08:34 AM Reporting Lab: [facility] [address] Performing Lab: [facility] [address] [place] [facility] BASIC METABOLIC PANEL+MG GLUCOSE [MASS/VOLUM E] IN SERUM OR PLASMA 101 70 - 100 09/17 H Specimen Type: PLASMA No comment entered. Ordering Provider: CRISTIANA RANDALL Report Released Date/Time: Sep 20, 2022 08:34 AM Reporting Lab: [facility] [address] Performing Lab: [facility] [address] [place] [facility] BASIC METABOLIC PANEL+MG SODIUM [MOLES/VOLU ME] IN SERUM OR PLASMA 138 136 - 145 09/17 Specimen Type: PLASMA No comment entered. Ordering Provider: CRISTIANA RANDALL Report Released Date/Time: Sep 20, 2022 08:34 AM Reporting Lab: [facility] [address] Performing Lab: [facility] [address] [place] [facility] BASIC METABOLIC PANEL+MG POTASSIUM [MOLES/VOLU ME] IN SERUM OR PLASMA 4.1 3.5 - 5.1 09/17 Specimen Type: PLASMA No comment entered. Ordering Provider: CRISTIANA RANDALL Report Released Date/Time: Sep 20, 2022 08:34 AM Reporting Lab: [facility] [address] Performing Lab: [facility] [address] [place] [facility] BASIC METABOLIC PANEL+MG CHLORIDE [MOLES/VOLU ME] IN SERUM OR PLASMA 102 98 - 107 09/17 Specimen Type: PLASMA No comment entered. Ordering Provider: CRISTIANA RANDALL Report Released Date/Time: Sep 20, 2022 08:34 AM Reporting Lab: [facility] [address] Performing Lab: [facility] [address] [place] [facility] BASIC METABOLIC PANEL+MG CARBON DIOXIDE, TOTAL [MOLES/VOLU ME] IN SERUM OR PLASMA 29 22 - 29 09/17 Specimen Type: PLASMA No comment entered. Ordering Provider: CRISTIANA RANDALL Report Released Date/Time: Sep 20, 2022 08:34 AM Reporting Lab: [facility] [address] Performing Lab: [facility] [address] [place] [facility] BASIC METABOLIC PANEL+MG CALCIUM [MASS/VOLUM E] IN SERUM OR PLASMA 9.4 8.4 - 10.2 09/17 Specimen Type: PLASMA No comment entered. Ordering Provider: CRISTIANA RANDALL Report Released Date/Time: Sep 20, 2022 08:34 AM Reporting Lab: [facility] [address] Performing Lab: [facility] [address] [place] [facility] BASIC METABOLIC PANEL+MG MAGNESIUM [MASS/VOLUM E] IN SERUM OR PLASMA 2.2 1.6 - 2.6 09/17 Specimen Type: PLASMA No comment entered. Ordering Provider: CRISTIANA RANDALL Report Released Date/Time: Sep 20, 2022 08:34 AM Reporting Lab: [facility] [address] Performing Lab: [facility] [address] [place] [facility] BASIC METABOLIC PANEL+MG ANION GAP IN SERUM OR PLASMA 7 5 - 15 09/17 Specimen Type: PLASMA No comment entered. Ordering Provider: CRISTIANA RANDALL Report Released Date/Time: Sep 20, 2022 08:34 AM Reporting Lab: [facility] [address] Performing Lab: [facility] [address] [place] [facility] BASIC METABOLIC PANEL+MG GLOMERULAR FILTRATION RATE/1.73 SQ M.PREDICTED [VOLUME RATE/AREA] IN SERUM, PLASMA OR BLOOD BY CREATININE- BASED FORMULA (CKD-EPI 2020) 84 60 09/17 Specimen Type: PLASMA No comment entered. Ordering Provider: CRISTIANA RANDALL Report Released Date/Time: Sep 20, 2022 08:34 AM Reporting Lab: [facility] [address] Performing Lab: [facility] [address] [place] [facility] BASIC METABOLIC PANEL+MG CREATININE [MASS/VOLUM E] IN SERUM OR PLASMA 0.9 0.7 - 1.2 09/20 Specimen Type: PLASMA No comment entered. Ordering Provider: CRISTIANA RANDALL Report Released Date/Time: Sep 20, 2022 08:34 AM Reporting Lab: [facility] [address] Performing Lab: [facility] [address] [place] [facility] BASIC METABOLIC PANEL+MG UREA NITROGEN [MASS/VOLUM E] IN SERUM OR PLASMA 14 8 - 26 09/20 Specimen Type: PLASMA No comment entered. Ordering Provider: CRISTIANA RANDALL Report Released Date/Time: Sep 20, 2022 08:34 AM Reporting Lab: [facility] [address] Performing Lab: [facility] [address] [place] [facility] BASIC METABOLIC PANEL+MG GLUCOSE [MASS/VOLUM E] IN SERUM OR PLASMA 105 70 - 100 09/20 H Specimen Type: PLASMA No comment entered. Ordering Provider: CRISTIANA RANDALL Report Released Date/Time: Sep 20, 2022 08:34 AM Reporting Lab: [facility] [address] Performing Lab: [facility] [address] [place] [facility] BASIC METABOLIC PANEL+MG SODIUM [MOLES/VOLU ME] IN SERUM OR PLASMA 137 136 - 145 09/20 Specimen Type: PLASMA No comment entered. Ordering Provider: CRISTIANA RANDALL Report Released Date/Time: Sep 20, 2022 08:34 AM Reporting Lab: [facility] [address] Performing Lab: [facility] [address] [place] [facility] BASIC METABOLIC PANEL+MG POTASSIUM [MOLES/VOLU ME] IN SERUM OR PLASMA 4.6 3.5 - 5.1 09/20 Specimen Type: PLASMA No comment entered. Ordering Provider: CRISTIANA RANDALL Report Released Date/Time: Sep 20, 2022 08:34 AM Reporting Lab: [facility] [address] Performing Lab: [facility] [address] [place] [facility] BASIC METABOLIC PANEL+MG CHLORIDE [MOLES/VOLU ME] IN SERUM OR PLASMA 101 98 - 107 09/20 Specimen Type: PLASMA No comment entered. Ordering Provider: CRISTIANA RANDALL Report Released Date/Time: Sep 20, 2022 08:34 AM Reporting Lab: [facility] [address] Performing Lab: [facility] [address] [place] [facility] BASIC METABOLIC PANEL+MG CARBON DIOXIDE, TOTAL [MOLES/VOLU ME] IN SERUM OR PLASMA 31 22 - 29 09/20 H Specimen Type: PLASMA No comment entered. Ordering Provider: CRISTIANA RANDALL Report Released Date/Time: Sep 20, 2022 08:34 AM Reporting Lab: [facility] [address] Performing Lab: [facility] [address] [place] [facility] BASIC METABOLIC PANEL+MG CALCIUM [MASS/VOLUM E] IN SERUM OR PLASMA 9.7 8.4 - 10.2 09/20 Specimen Type: PLASMA No comment entered. Ordering Provider: CRISTIANA RANDALL Report Released Date/Time: Sep 20, 2022 08:34 AM Reporting Lab: [facility] [address] Performing Lab: [facility] [address] [place] [facility] BASIC METABOLIC PANEL+MG MAGNESIUM [MASS/VOLUM E] IN SERUM OR PLASMA 2.2 1.6 - 2.6 09/20 Specimen Type: PLASMA No comment entered. Ordering Provider: CRISTIANA RANDALL Report Released Date/Time: Sep 20, 2022 08:34 AM Reporting Lab: [facility] [address] Performing Lab: [facility] [address] [place] [facility] BASIC METABOLIC PANEL+MG ANION GAP IN SERUM OR PLASMA 5 5 - 15 09/20 Specimen Type: PLASMA No comment entered. Ordering Provider: CRISTIANA RANDALL Report Released Date/Time: Sep 20, 2022 08:34 AM Reporting Lab: [facility] [address] Performing Lab: [facility] [address] [place] [facility] BASIC METABOLIC PANEL+MG GLOMERULAR FILTRATION RATE/1.73 SQ M.PREDICTED [VOLUME RATE/AREA] IN SERUM, PLASMA OR BLOOD BY CREATININE- BASED FORMULA (CKD-EPI) 84 60 09/20 Specimen Type: PLASMA No comment entered. Ordering Provider: CRISTIANA RANDALL Report Released Date/Time: Sep 20, 2022 08:34 AM Reporting Lab: [facility] [address] Performing Lab: [facility] [address] [facility] HEMOGLOBI N A1C HEMOGLOBIN A1C/HEMOGLO BIN.TOTAL IN BLOOD 5.2 4.0 - 6.0 09/20 Specimen Type: BLOOD Comment: Values obtained from A1C measurement s can vary. For typical A1C assays, a reported value of 7.0 could actually be between 6.7 and 7.3 if measured by a reference method. A reported value of 9.0 could actually be between 8.7 and 9.3. Ref: http://www. ngsp.org/[place] Pdata.asp Ordering Provider: CRISTIANA RANDALL Report Released Date/Time: Sep 20, 2022 08:34 AM Reporting Lab: [facility] [address] Performing Lab: [facility] [address] [facility] Vital Signs Combined list of inpatient and outpatient Vital Signs from Department of Defense and Veterans Affairs, ranging from 12 months to all on record, depending upon the facility. Vital Sign Value Date Comments Source SYSTOLIC BLOOD PRESSURE 159 09/17/2023 11:51:52 [facility] DIASTOLIC BLOOD PRESSURE 78 09/17/2023 11:51:52 [facility] PULSE OXIMETRY 95% 09/17/2023 11:51:52 [facility] 177.4 09/17/2023 11:51:52 [facility] BMI 25kg/m2 09/17/2023 11:51:52 [facility] PAIN 0 09/17/2023 11:51:52 [facility] TEMPERATURE 98 09/17/2023 11:51:52 [facility] P[facility] 73 09/17/2023 11:51:52 [facility] RESPIRATION 16 09/17/2023 11:51:52 [facility] Encounters Combined list of: 1) Encounters from Department of Veterans Affairs facilities going back up to thelast 18 months. 2) Encounters from the Department of [facility] facilities going back up to 280 months. Location Location Details Encounter Type Encounter Number Reason For Visit Attending Provider ADM Date DC Date Status Disposition Source [facility] Outpatient Encounter [id number] 07/10 [facility] [place] [facility] Outpatient Encounter [id number] 07/10 [facility] [place] [facility] [place] [id number] Diagnos is: ICD-10- CM Z00.00 Encntr for general adult medical exam w/o abnorma l finding s
RAYMOND RANDALL 09/20 [facility] [place] [facility] Outpatient Encounter [id number] 09/30 [facility] [place] [facility] Outpatient Encounter [id number] 09/16 [facility] [place] [facility] OFFICE O/P EST LOW 20 MIN [id number] Diagnos is: ICD-10- CM Z00.01 Encount er for general adult medical exam w abnorma l finding s
Maximiliano HUERTA 09/17 [facility] Social History Combined list of available smoking, tobacco, and other social history from Department of [facility] facilities. Social History Type Response Date Comment Sourc e Tobacco smoking status NHIS [facility] FORMER USER 09/16/2023 [facility] History of tobacco use [place]-TOBACCO QUIT 1 5 YRS OR MORE 09/16/2023 [facility] History of tobacco use VA-TOBACCO FORMER USER 09/20/2022 [facility] History of tobacco use [place]-TOBACCO FORMER USER 04/02/2021 [facility] History of tobacco use WA-TOBACCO QUIT 1 5 YRS OR MORE 08/16/2019 [facility] Plan of Care List of future care activities from Department [facility] facilities. Additional future care activities may be listed in the Assessment and Plan section. Date/Time Care Activity Care Activity Detail Facili ty 09/17/2023 Consult Order [facility]EP [facility] IC OUTPT Cons Cath Lab Tech's Choice [facility] Advance Directives List of completed, amended, or rescinded Advance Directives on record at Department of Veterans Affairs facilities. An actual copy of the Directive is not included. Date Advance Directive Provider Source 04/02/2004 ADVANCE DIRECTIVE ABRAN SESAY [facility]
--- OUTSIDE RECORDS SUMMARY | 2023-10-17 14:05 | XMS_ITS | Encounter Summary ---
Author Name [facility] Organization [facility] Address [address] [place] [id number] Support Name Relationship Address Phone SPENCERYORDYLULMIGUEL Next of Kin [address] [facility] [place], [place] [phone] PREMAMIGUEL Bruce Emergency Contact [address] [place], [place] [phone] Insurance Providers: All historical and current Section Date Range: From patient's date of to the date document was created. This section includes the names of all active insurance providers for the patient. Insurance Provider Type of Coverage Plan Name Start of Policy Coverage End of Policy Coverage Group Number Member ID Insurance Provider's Telephone Number Policy Ortega's Name Patient's Relationship to Policy Ortega [employer] [place] SU[employer] DAVE [employer] ARE SUPPL EMENT Sep 01, 2016 [id number] SPENCERALYSIA BRAD PATIENT [facility] MEDICARE SUPPLEMEN DAVE MEDIC ARE SUPPL EMENT Sep 01, 2016 [id number] BRAD LLOYD PATIENT MEDICARE (WNR) MEDICARE (M) PART B Oct 02, 2003 PART B [id number] [phone] BRAD LLOYD PATIENT MEDICARE (WNR) MEDICARE (M) PART A Jul 02, 2003 PART A [id number] [phone] BRAD LLOYD PATIENT Selected Encounter This section includes the information on record at [place] for the Encounter. Date/Time Encounter Type Encounter Description Reason Pro vider Source Sep 16, 2023 02:22 PM Outpatient Encounter PRIMARY CARE/MEDICINE IHE Encounter Template Text not used by [place] Plan of Treatment: Future Appointments (+ 6 months) and Future Tests (+/- 45 days) The Plan of Treatment section includes future care activities for the patient from all [place] treatmentfacilities. This section includes future appointments and future orders which are active, pending or scheduled. Future Appointments This section includes appointments that were scheduled to occur 6 months from the date of the Encounter, up to a maximum of 20 appointments. The data comes from all [facility]. Appointment Date/Time Appointment Type Appointme nt Facility Name Sep 17, 2023 11:30 AM AMBULATORY - NONE [facility] Sep 17, 2023 12:30 PM AMBULATORY - MEDICINE BELChristian [facility] Active, Pending, and Scheduled Orders This section includes a listing of several types of active, pending, and scheduled orders, including clinic medications orders, diagnostic test orders, procedure orders and consult orders; where the start date of the order is 45 days before the date of the Encounter or 45 days after the date of theEncounter. The data comes from all [facility]. Test Date/Time Test Type Test Details Facility Name Sep 17, 2023 12:51 PM Consult Order SLEEP APNE A CLINIC OUTPT Cons Evaluation Engineer's Choice [facility] Lab Results: +/- 30 days of the encounter This section includes the Chemistry and Hematology Lab Results on record with [place] for the patient. Radiology Reports and Pathology Reports are provided separately, in subsequent sections. Lab Results This section contains the Chemistry/Hematology Results that were resulted 30 days before or 30 daysafter the date of the Encounter. Date/Time Source Result Type Result - Unit Interpretation Reference Range Comment Sep 17, 2023 11:24 AM [facility] BASIC METABOLIC PANEL+MG Specimen Type: PLASMA No comment entered. Ordering Provider: CRISTIANA RANDALL Report Released Date/Time: Sep 20, 2022 08:34 AM Reporting Lab: [facility] [id number] Performing Lab: [facility] [id number] CREATININE 0.9 0.7-1.2 UREA NITROGEN 19 8-26 GLUCOSE 101 H 70-100 SODIUM 138 136-145 POTASSIUM 4.1 3.5-5.1 CHLORIDE 102 98-107 CO2 29 22-29 CALCIUM 9.4 8.4-10.2 MAGNESIUM 2.2 1.6-2.6 ANION GAP 7 5-15 .CREAT EGFR(CKD-EPI ) 84 >60 Social History: Smoking Status (Most current) and Tobacco Use (All prior to encounter date) This section includes the most current, and the historical, smoking and tobacco- related health factors from the [place] facility where the Encounter took place. Current Smoking Status This section includes the most current smoking, or tobacco-related health factor, from the [facility] where the Encounter took place. Date/Time Current Smoking Status Comment Wilmer skinner Sep 16, 2023 02:22 PM VA-TOBACCO FORMER USER [facility] Tobacco Use History This section includes a history of the smoking, or tobacco-related health factors, that were collected on or before the date of the Encounter. The data comes from the [facility] where the Encounter took place. Date/Time Smoking Status/Tobacco Use Comment F acility Sep 16, 2023 02:22 PM VA-TOBACCO QUIT 15 YRS OR MORE [facility] Sep 20, 2022 08:15 AM VA-TOBACCO FORMER USER [facility] Sep 20, 2022 08:15 AM VA-TOBACCO QUIT 15 YRS OR MORE [facility] Apr 02, 2021 11:30 AM VA-TOBACCO FORMER USER [facility] Apr 02, 2021 11:30 AM VA-TOBACCO QUIT 15 YRS OR MORE [facility] Aug 16, 2019 01:40 PM VA-TOBACCO FORMER USER [facility] Aug 16, 2019 01:40 PM VA-TOBACCO QUIT 15 YRS OR MORE [facility] Advance Directives: All historical and current Section Date Range: From patient's date of to the date document was created. This section includes ALL of a patient's completed or amended [place] Advance and Rescinded Directives. The entries below indicate that a directive exists for the patient, but an actual copy is not included with this document. The data comes from all [facility]. Date Advance Directives Provider Source Apr 02, 2004 ADVANCE DIRECTIVE ABRAN SESAY [facility] Encounter Notes: All associated encounter notes This section contains the clinical notes associated to the Encounter. Date/Time Encounter Note(s) Provider Source Sep 17, 2023 08:44 AM INTERNAL MEDICINE OUTPATIENT NOTE: LOCAL TITLE: MEDICINE CLINIC NURSING NOTE STANDARD TITLE: INTERNAL MEDICINE OUTPATIENT NOTE DATE OF NOTE: SEP 17, 2023@08:44:42 ENTRY DATE: SEP 17, 2023@08:44:42 AUTHOR: CLEVE REEVES COSIGNER: URGENCY: STATUS: COMPLETED Patient prescreened ahead of appointment. No further actions are needed. Assessments were sent to the [facility] via text/email. These assessments were completed by BRAD LLOYD on their own device on 09/16/2023 2:22:38 PM. TOBACCO USE SCREENING 1.5 Do you smoke cigarettes or use tobacco at least some days or not at all: Not at all Have you ever used tobacco: Yes, former user When was the last time you used tobacco: 15 or more years ago /debbie/ CLEVE REEVES LPN LPN Signed: 09/17/2023 08:45 CLEVE REEVES [facility]
--- OUTSIDE RECORDS SUMMARY | 2023-10-17 14:05 | XMS_ITS | Encounter Summary ---
Author Name [employer] Organization [facility] [employer] Address [address] [place] [id number] Support Name Relationship Address Phone MIGUEL LLOYD Next of Kin [address] [place], [place] [id number] MIGUEL LLOYD Emergency Contact [address] [place] [address] Insurance Providers: All historical and current Section [...] Name Patient's Relationship to Policy [place] SUPPLEMEN DAVE MEDIC ARE SUPPL EMENT Sep 01, 2016 [id number] SPENCERALYSIA BRAD PATIENT [place] SUPPLEMEN DAVE MEDIC ARE SUPPL EMENT Sep 01, 2016 [id number] BRAD LLOYD PATIENT MEDICARE (WNR) MEDICARE (M) PART B Oct 02, 2003 PART B [id number] [phone] BRAD LLOYD PATIENT MEDICARE (WNR) MEDICARE (M) PART A Jul 02, 2003 PART A [id number] [phone] BRAD LLOYD PATIENT Selected Encounter This section includes the information on record at [place] for the Encounter. Date/Time Encounter Type Encounter Description Reason Provider Source Sep 17, 2023 12:30 PM OFFICE O/P EST LOW 20 MIN PRIMARY CARE/MEDICINE ICD-10-CM Z00.01 Encounter for general adult medical exam w abnormal findings CRISTIANE IGLESIAS Leonardo [facility] Encounter Template Text not used by [place] Assessments - Encounter Diagnoses This section includes the primary and secondary diagnoses documented for the Encounter. Date/Time Primary/Secondary Diagnosis Diagnosis Name Provider Source Sep 17, 2023 12:50 PM PRIMARY Encounter for general adult medical exam w abnormal findings BOOGIE IGLESIASOMNROE Leonardo [facility] Sep 17, 2023 12:50 PM SECONDARY Benign prostatic hyperplasia with lower urinary tract symp CARTER IGLESIASN VANESSAMONROE Patterson [facility] Sep 17, 2023 12:50 PM SECONDARY Essential (primary) hypertension BOOGIE IGLESIASMONROE Patterson [facility] Sep 17, 2023 12:50 PM SECONDARY Sleep apnea, unspecified BOOGIE IGLESIASMONROE Leonardo [facility] Plan of Treatment: Future Appointments (+ 6 months) and Future Tests (+/- 45 days) The Plan of Treatment section includes future care activities for the patient from all [place] treatmentfacilities. This section includes future appointments and future orders which are active, pending or scheduled. Active, Pending, and Scheduled Orders This section includes a listing of several types of active, pending, and scheduled orders, including clinic medications orders, diagnostic test orders, procedure orders and consult orders; where the start date of the order is 45 days before the date of the Encounter or 45 days after the date of theEncounter. The data comes from all [place] treatment facilities. Test Date/Time Test Type Test Details Facility Name Sep 17, 2023 12:51 PM Consult Order SLEEP APNE A CLINIC OUTPT Cons Poolroom Table Attendant's Choice [facility] Lab Results: +/- 30 days of the encounter This section includes the Chemistry and Hematology Lab Results on record with [place] for the patient. Radiology Reports and Pathology Reports are provided separately, in subsequent sections. Lab Results This section contains the Chemistry/Hematology Results that were resulted 30 days before or 30 daysafter the date of the Encounter. Date/Time Source Result Type Result - Unit Interpretation Reference Range Comment Sep 17, 2023 11:24 AM [facility] BASIC METABOLIC PANEL+MG Specimen Type: PLASMA No comment entered. Ordering Provider: CRISTIANA RANDALL Report Released Date/Time: Sep 20, 2022 08:34 AM Reporting Lab: [facility] [id number] Performing Lab: [facility] [id number] CREATININE 0.9 0.7-1.2 UREA NITROGEN 19 8-26 GLUCOSE 101 H 70-100 SODIUM 138 136-145 POTASSIUM 4.1 3.5-5.1 CHLORIDE 102 98-107 CO2 29 22-29 CALCIUM 9.4 8.4-10.2 MAGNESIUM 2.2 1.6-2.6 ANION GAP 7 5-15 .CREAT EGFR(CKD-EPI ) 84 >60 Vital Signs: All taken on the encounter date This section contains inpatient and outpatient Vital Signs collected on the date of the Encounter. Date/Time Temperature Pulse Blood Pressure Respiratory Rate SP02 Pain Height Weight Body Mass Index Source Sep 17, 2023 11:57 AM 77 /min 135/77 mm[Hg] [facility] Sep 17, 2023 11:51 AM 98 F 73 /min 159/78 mm[Hg] 16 /min 95 % 0 177.4 lb 25 [facility] Social History: Smoking Status (Most current) and Tobacco Use (All prior to encounter date) This section includes the most current, and the historical, smoking and tobacco- related health factors from the [place] facility where the Encounter took place. Current Smoking Status This section includes the most current smoking, or tobacco-related health factor, from the [place] facility where the Encounter took place. Date/Time Current Smoking Status Comment Wilmer skinner Sep 16, 2023 02:22 PM VA-TOBACCO FORMER USER [facility] Tobacco Use History This section includes a history of the smoking, or tobacco-related health factors, that were collected on or before the date of the Encounter. The data comes from the [place] facility where the Encounter took place. Date/Time Smoking Status/Tobacco Use Comment F acility Sep 16, 2023 02:22 PM VA-TOBACCO QUIT 15 YRS OR MORE [facility] Sep 20, 2022 08:15 AM VA-TOBACCO FORMER USER [facility] Sep 20, 2022 08:15 AM VA-TOBACCO QUIT 15 YRS OR MORE [facility] Apr 02, 2021 11:30 AM VA-TOBACCO FORMER USER [facility] Apr 02, 2021 11:30 AM VA-TOBACCO QUIT 15 YRS OR MORE [facility] Aug 16, 2019 01:40 PM VA-TOBACCO FORMER USER [facility] Aug 16, 2019 01:40 PM VA-TOBACCO QUIT 15 YRS OR MORE [facility] Advance Directives: All historical and current Section Date Range: From patient's date of to the date document was created. This section includes ALL of a patient's completed or amended [place] Advance and Rescinded Directives. The entries below indicate that a directive exists for the patient, but an actual copy is not included with this document. The data comes from all [place] facilities. Date Advance Directives Provider Source Apr 02, 2004 ADVANCE DIRECTIVE ABRAN SESAY S [facility] Encounter Notes: All associated encounter notes This section contains the clinical notes associated to the Encounter. Date/Time Encounter Note(s) Provider Source Sep 17, 2023 12:15 PM INTERNAL MEDICINE NOTE: LOCAL TITLE: MEDICINE CLINIC NOTE STANDARD TITLE: INTERNAL MEDICINE NOTE DATE OF NOTE: SEP 17, 2023@12:15 ENTRY DATE: SEP 17, 2023@12:15:27 AUTHOR: PERLITA IGLESIAS COSIGNER: URGENCY: STATUS: COMPLETED Nurse's notes reviewed from today. BRAD LLOYD is a 83 year old MALE with a past medical history significant for HTN, HLD, ED and BPH who presents to the [facility] (primary TXDM-ploeela-rll available) for his annual. He is comanaged, getting his primary care from [facility], also has a Urologist in [place] and [facility] at [place]. Comes here yearly to maintain benefits. Only concern today is he is wondering if he qualifies for the Inspire sleep apnea device. Has a CPAP, uses it nightly. Active problems - Computerized Problem List is the source for the followin. Hyperlipidemia (SCT [id number]) 2. HTN - Hypertension ([facility] [id number]) 3. Allergic Rhinitis ([facility] [id number]) 4. Erectile Dysfunction ([facility] [id number]) 5. Tear of left rotator cuff 6. Nocturia due to benign prostatic hypertrophy Allergies: Patient has answered NKA Active and Recently Outpatient Medications (including Supplies): Active Outpatient Medications Status 1) LIDOCAINE 5% PATCH APPLY 1 PATCH TOPICALLY EVERY DAY ACTIVE NEEDED FOR PAIN WEAR FOR 12 HOURS AND THEN REMOVE 2) PSYLLIUM ORAL PWD TAKE 1 TABLESPOON BY MOUTH EVERY ACTIVE DAY MIXED IN JUICE OR WATER DIRECTED TO HELP REGULATE STOOLS TO HELP HEMORRHOIDS. Active Non-VA Medications Status 1) Non-VA CALCIUM POLYCARBOPHIL TAB ACTIVE 2) Non-VA CETIRIZINE TAB ACTIVE 3) Non-VA DOCUSATE NA 100MG CAP 200MG MOUTH NEEDED ACTIVE 4) Non-VA FINASTERIDE 5MG TAB 5MG MOUTH EVERY DAY ACTIVE 5) Non-VA FLUTICASONE PROP 50MCG 120D NASAL INHL 2 ACTIVE SPRAYS EACH NOSTRIL EVERY DAY NEEDED 6) Non-VA HYDROCHLOROTHIAZIDE 25MG TAB 25MG MOUTH EVERY ACTIVE DAY 7) Non-VA METHYLCELLULOSE TAB MOUTH ACTIVE 8) Non-VA MULTIVITS W/MINERALS(NO VIT K) TAB ACTIVE 9) Non-VA TADALAFIL TAB 5MG MOUTH NEEDED ACTIVE 10) Non-VA TAMSULOSIN HCL 0.4MG CAP 0.4MG MOUTH AT ACTIVE BEDTIME 12 Total Medications MEDICATION RECONCILIATION Outpatient At this visit I have reviewed the medication list, and discussed relevant medications with the patient/surrogate. An updated patient medication list was given to the participant(s). (x) No Change ( ) Change/New: I have noted this on the patient's copy of the medication list. Education on NEW Medication: I have reviewed the medication list for possible drug:drug interactions or contraindications prior to ordering NEW medications during this visit. ( )Patient instructed. I noted new medication on patient's copy of the medication list. Patient sent to Pharmacist for education on new medication. ( )Patient ( )Family Member ( )Caregiver indicated readiness to learn and has been instructed on action, dose, frequency and side effects of the new medication and I noted new medication on participant's copy of the medication list. ( ) Verbalizes understanding of instructions. ( ) Needs additional reinforcement of instructions(sent to Pharmacist). ( )Patient unable to participate in learning/instruction. Social History: quit smoking 12/31/1984. smoked 1ppd for 20 years. now smokes cigars on occasion. EXAM: VS: Temp: 98 F [36.7 C] (09/17/2023 11:51) BP: 135/77 (09/17/2023 11:57) Pulse:77 (09/17/2023 11:57) Resp: 16 (09/17/2023 11:51) Pain: 0 (09/17/2023 11:51) Weight: WEIGHTS IN LAST 6 MONTHS: 177.4 (SEP 17, 2023@11:51:52) General Appearance: NAD Head: normocephalic, atraumatic Eyes: Sclera without icterus, PERRLA Neck/Thyroid: No adenopathy, No thyromegaly, No JVD, No carotid bruits Cardiac: RRR, No murmurs, gallops, rubs Chest/Lungs: Bilaterally clear with no respiratory distress Abdominal: Normal - Normal bowel sounds, Non-tender, No hepatosplenomegaly, No masses Extremities: No edema Neurological: Alert and oriented x3, Cranial nerves II - XII intact Data/Labs: GLUCOSE: 101 H UREA NITROGEN: 19 CREATININE: 0.9 SODIUM: 138 POTASSIUM: 4.1 CHLORIDE: 102 CO2: 29 CALCIUM: 9.4 MAGNESIUM: 2.2 ANION GAP: 7 CREATININE EGFR (CKD-EPI): 84 (x)Patient was informed of available lab, imaging, and other study results associated with today's visit. Assessment and Plan: #. HM: -falls in past 12m: none -mobility: independent -medication managment: self -ADLs: independent -Screen: -colon cancer c scope done thru [facility]. last was 2 years ago. adv to repeat in 2026 -AAA: n/a, age >75yo -ldCT chest: n/a, quit >15 years ago and age >80yo -Immunizations: -Shingles: x2 -Tdap: 2015 -Pna: -COVID-19: x3, had intense itching after last dose so declines any further boosters #. HTN checks at home and is typically <130/70s. on HCTZ, managed by outside PCP #. BPH stable, managed by outside urologist. on flomax and finasteride #. CHANEL uses CPAP nightly. Would like to see if he can get Inspire. Sleep consult placed. (x) Patient/Caregiver indicates readiness to learn, verbalizes understanding, agreement and satisfaction with the treatment plan. Patient/Caregiver doesn't have any further questions today. /debbie/ Perlita Iglesias PA-C Physician Feeder Loader Signed: 09/17/2023 12:50 PERLITA IGLESIAS [facility] Sep 17, 2023 11:52 AM INTERNAL MEDICINE OUTPATIENT NOTE: LOCAL TITLE: MEDICINE CLINIC NURSING NOTE STANDARD TITLE: INTERNAL MEDICINE OUTPATIENT NOTE DATE OF NOTE: SEP 17, 2023@11:52 ENTRY DATE: SEP 17, 2023@11:52:45 AUTHOR: CLEVE REEVES COSIGNER: URGENCY: STATUS: COMPLETED TYPE OF VISIT: Appointment Check In Type of appointment: In-person appointment REASON FOR VISIT: Annual ALLERGIES: Patient has answered NKA VITAL SIGNS: Blood Pressure: 159/78 (09/17/2023 11:51) Pulse: 73 (09/17/2023 11:51) Respiration: 16 (09/17/2023 11:51) Temperature: 98 F [36.7 C] (09/17/2023 11:51) Weight: 177.4 lb [80.47 kg] (09/17/2023 11:51) Height: 71 in [180.3 cm] (09/20/2022 08:03) BMI: 24.8 O2 Sat: 95% (09/17/2023 11:51) Pain: 0 (09/17/2023 11:51) PAIN SCREEN: Patient is not having significant pain that they wish to discuss with their provider today. MEDICATION Active Outpatient Medications (including Supplies): LIDOCAINE 5% PATCH APPLY 1 PATCH TOPICALLY EVERY DAY ACTIVE NEEDED FOR PAIN WEAR FOR 12 HOURS AND THEN REMOVE PSYLLIUM ORAL PWD TAKE 1 TABLESPOON BY MOUTH EVERY DAY ACTIVE MIXED IN JUICE OR WATER DIRECTED TO HELP REGULATE STOOLS TO HELP HEMORRHOIDS. Non-VA CALCIUM POLYCARBOPHIL TAB ACTIVE Non-VA CETIRIZINE TAB ACTIVE Non-VA DOCUSATE NA 100MG CAP 200MG MOUTH NEEDED ACTIVE Non-VA FINASTERIDE 5MG TAB 5MG MOUTH EVERY DAY ACTIVE Non-VA FLUTICASONE PROP 50MCG 120D NASAL INHL 2 SPRAYS ACTIVE EACH NOSTRIL EVERY DAY NEEDED Non-VA HYDROCHLOROTHIAZIDE 25MG TAB 25MG MOUTH EVERY DAY ACTIVE Non-VA METHYLCELLULOSE TAB MOUTH ACTIVE Non-VA MULTIVITS W/MINERALS(NO VIT K) TAB ACTIVE Non-VA TADALAFIL TAB 5MG MOUTH NEEDED ACTIVE Non-VA TAMSULOSIN HCL 0.4MG CAP 0.4MG MOUTH AT BEDTIME ACTIVE Over the Counter/Herbal Medications: The patient states that they take some outside medications and/or herbals. Suicide Screen: C-SSRS Screening [place] Suicide Severity Rating Scale (C-SSRS) screener 1. Over the past month, have you wished you were or wished you could go to sleep and not wake up? No 2. Over the past month, have you had any actual thoughts of killing yourself? No 3. Over the past month, have you been thinking about how you might do this? Response not required due to responses to other questions. 4. Over the past month, have you had these thoughts and had some intention of acting on them? Response not required due to responses to other questions. 5. Over the past month, have you started to work out or worked out the details of how to kill yourself? Response not required due to responses to other questions. 6. If yes, at any time in the past month did you intend to carry out this plan? Response not required due to responses to other questions. 7. In your lifetime, have you ever done anything, started to do anything, or prepared to do anything to end your life (for example, collected pills, obtained a gun, gave away valuables, went to the roof but didn't jump)? No 8. If YES, was this within the past 3 months? Response not required due to responses to other questions. Depression Screening: Perform PHQ-2 A PHQ-2 screen was performed. The score was 0 which is a negative screen for depression. Over the past two weeks, how often have you been bothered by the following problems? 1. Little interest or pleasure in doing things Not at all 2. Feeling down, depressed, or hopeless Not at all COVID-19 Immunization: Refused Moderna Monovalent COVID-19 vaccine Immunization: COVID-19 (MODERNA), MRNA, LNP-S, PF, 50 MCG/0.5 ML (AGES 12+ YEARS) Refusal Reason: PATIENT DECISION Patient refuses all immunization(s) in the COVID-19 group Date Documented: 09/17/23 11:54 Influenza Immunization: The patient declines to receive the recommended dose of seasonal influenza vaccine. Immunization: INFLUENZA, UNSPECIFIED FORMULATION Refusal Reason: PATIENT DECISION Patient refuses all immunization(s) in the FLU group Date Documented: 09/17/23 11:54 Alcohol Use Screen (AUDIT-C): Alcohol Screen: SCREEN FOR ALCOHOL (AUDIT-C) An alcohol screening test (AUDIT-C) was negative (score=4). 1. How often did you have a drink containing alcohol in the past year? Consider a drink to be a 12 ounce can or bottle of regular beer, 8 ounces of malt liquor, a 5 ounce glass of table wine, or a 1.5 ounce shot of liquor (like scotch, gin, or vodka). Four or more times a week 2. How many drinks containing alcohol did you have on a typical day when you were drinking in the past year? One or two drinks 3. How often did you have six or more drinks on one occasion in the past year? Never Nursing Annual Screening: Fall History Screen During the past 12 months, have you had any falls? Patient reports having one fall without injury requiring treatment. MEDICATIONS: Patient is on one of the following medication classes: Antihypertensives, Antidepressants, Antipsychotics, Diuretics, or Controlled substance medication used for pain. FALL RISK ADVICE: Fall Risk Advice provided. Handout entitled Fall Prevention At Home reviewed and given to patient and/or significant other. Script Talk Screen Are you able to read your prescription bottles with your glasses, magnifiers or other aids? Yes or patient not taking any prescriptions. Skin Screen Patient reports any current pressure ulcers, a history of pressure ulcers, or a wound from a durable medical equipment repairer or Patient is bed-confined or a wheelchair-user or Patient requires assistance to transfer/change position No, Skin Screen is Negative Home Abuse/Violence Screen Is your home free of abuse and violence? Yes MOVE! Program Screen Body Mass Index (BMI)= 24.8 [place]: Collection DT Specimen Test Name Result Units Ref Range 09/20/2022 09:04 BLOOD !! HEMOGLOBIN A1C 5.2 % 4.0 - 6.0 !! Indicates COMMENTS AVAILABLE...Refer to Interim Lab Report. [place] Hgb A1C: No data available [place] Hgb A1C: No data available Point of Care Hgb A1C: POC HGB A1C____ Outpatient Nutrition Screen Body Mass Index (BMI)= 24.8 [place]: Collection DT Specimen Test Name Result Units Ref Range 09/20/2022 09:04 BLOOD !! HEMOGLOBIN A1C 5.2 % 4.0 - 6.0 !! Indicates COMMENTS AVAILABLE...Refer to Interim Lab Report. [place] Hgb A1C: No data available [place] Hgb A1C: No data available Point of Care Hgb A1C: POC HGB A1C____ Is patient's BMI less than 18.5? No Does patient have swallowing, coughing, or chewing problems affecting oral intake? No Has patient experienced unplanned weight loss or gain greater than 10 pounds over the last 2 months? No Is patient's Hgb A1C (Glycosylated Hemoglobin) greater than 9.5? No Is patient receiving Total Parenteral Nutrition (TPN) or Tube Feedings? No Patient Health Education Screen BARRIERS/SPECIAL NEEDS: Physical limitations Hearing limitations Visual limitations PREFERRED STYLE OF LEARNING: No preference stated Client Assistive Service (DASHAWN) Screen Does the patient require assistance with outpatient visit? Johanna /debbie/ CLEVE REEVES LPN LPN Signed: 09/17/2023 11:56 CLEVE REEVES [facility]
--- OUTSIDE RECORDS SUMMARY | 2023-10-17 14:06 | XMS_ITS | Clinical Summary ---
Author Name Unknown Organization [facility] Address [place], [place] [address] Care Team Providers Care Gold Miner Name Role Phone Ellen Hamilton MD Primary Care Provider [phone] Allergies No known active allergies Medications Medication Sig Dispensed Refills Start Date End Date Status MULTIVITAMIN TAB one daily 0 02/11/2007 Active fexofenadine (GERARDO) 180 mg tablet Take 1 tablet by mouth once daily with a meal. 0 12/22/2013 Active glucosamine-chondroit -vit c-mn (GLUCOSAMINE CHONDROITIN MAXSTR) 500-400 mg cap Takes 2 tabs daily 0 11/18/2014 Active hydrochlorothiazide (HCTZ) 25 mg tablet Take 1 tablet by mouth once daily. 0 11/18/2014 Active fluticasone (50 mcg per actuation) nasal solution (FLONASE) Inhale 1 Spangler into both nostrils once daily. 1 Bottle 0 11/18/2014 Active simvastatin (ZOCOR) 20 mg tablet 0 03/06/2020 Active tamsulosin (FLOMAX) 0.4 mg capsule 0 04/18/2020 Active tadalafiL (CIALIS) 5 mg tabletIndications:Ere ctile disorder due to medical condition in male Take 2 Tablets (10 mg) by mouth once daily if needed for Erectile Dysfunction. Take 30 minutes before sexual activity. 90 Tablet 3 11/07/2021 Active tadalafiL (CIALIS) 5 mg tabletIndications:Ere ctile dysfunction, unspecified erectile dysfunction type Take 1 Tablet (5 mg) by mouth once daily if needed for Erectile Dysfunction. Take 30 minutes before sexual activity. 90 Tablet 3 11/07/2021 Active Active Problems Problem Noted Date Diagnosed Date Lumbar spinal stenosis 12/22/2013 Synovial cyst of lumbar facet joint 12/22/2013 Encounters Date Type Department Care Team Description 10/06/2023 1:40 PM INCOME AUDITOR Office Visit [facility] [address] [place] [address] Donn Montanez MD Musculoskeletal Problem (Follow up back pain ) 10/06/2023 Travel from Last 3 Months Immunizations Name Administration Dates Next Due Influenza, High-dose Inactivated 05/21/2016,06/01 Influenza, IIV4 05/18/2014,05/18/2014 Influenza, Inactivated IIV3 (Age 65+ Years) Preserv Free 05/22/2018,04/28/2017 Pneumococcal Poly,23-Valent (Pneumovax) 09/01/19 04 Pneumococcal, Unspecified 02/13/2006 Td (Age >=7 Years) 01/21/2007,06/14/2005 Zoster (Zostavax-ZVL, live) 08/15/2010 Social History Tobacco Use Types Packs/Day Years Used Date Smoking Tobacco: Light Smoker Cigars Last attempted to quit: 12/31/1984 Smokeless Tobacco: Never Tobacco Cessation:Ready to Q uit: No; Counseling Given: Yes Comments:cigar 2x/month during summer months Alcohol Use Standard Drinks/Week Comments Yes 0 (1 standard drink = 0.6 oz pur e alcohol) occas Social Connections Answer Date Recorded Frequency of Communication with Friends and Fami ly Not on file 09/01/2021 Financial Resource Strain Answer Date R ecorded Difficulty of Paying Living Expenses Not on file 09/01/2021 Difficulty of Paying Living Expenses Not on file 09/01/2021 Sex and Gender Information Value Date Recorded Sex Assigned at Not on file Gender Identity Not on file Sexual Orientation Not on file Obstetrics History Last Filed Vital Signs Vital Sign Reading Time Taken Comments Blood Pressure 146/76 10/06/2023 1:45 PM INCOME AUDITOR Pulse 73 10/06/2023 1:45 PM INCOME AUDITOR Temperature 36.5 ??C (97.7 ??F) 10/06/2023 1:45 PM CS T Respiratory Rate 16 09/20/2020 11:4 1 AM INCOME AUDITOR Oxygen Saturation 96% 10/06/2023 1:45 PM INCOME AUDITOR Inhaled Oxygen Concentration - - Weight 79.3 kg (174 lb 12.8 oz) 03/27/2022 1:54 PM CDT Height 182.9 cm (6' 0.01) 05/11/2015 8:21 AM CD T Body Mass Index 23.7 05/11/2015 8:21 AM CDT Plan of Treatment Upcoming Encounters Date Type Department Care Team (Late st Contact Info) Description 10/17/2023 2:40 PM INCOME AUDITOR Office Visit [facility] [address] [place] [phone] Donn Montanez MD [address] [place] [address] Arrived Health Maintenance Due Date Last Done Comments Tdap 1951 Depression screening for age 12+ 1950 BMI (ht and wt on same day) for age 18+ 1956 Medicare Wellness for age 65+ 2003 Pneumococcal series for age 65+ (2 of 2 - PCV) 02/13/2007 02/13/2006, 09/01/2003 Zoster (shingles) series for age 50+ (2 of 3) 10/10/2010 08/15/2010 Tetanus booster 01/21/2017 01/21/2007, 06/14/2005 COVID-19 vaccine series ( - season) 2023 06/14/2021 Influenza for age 65+ 05/02/2023 05/22/2018 , 04/28/2017, 05/21/2016, Additional history exists Procedures Procedure Name Priority Date/Time Associated Diagnosis Comments AMB EPIDURAL STEROID INJECTION Routine 10/17/2023 9:52 AM INCOME AUDITOR Lumbar radiculopathy Lumbar disc herniation DDD (degenerative disc disease), lumbar from Last 3 Months Care Teams Gold Miner Relationship Specialty Start Date End Date Ellen Hamilton MD [address] [place] [address] PCP - General Internal Medicine 10/08/13
--- OUTSIDE RECORDS SUMMARY | 2023-10-17 14:06 | XMS_ITS | Clinical Summary ---
Author Name Unknown Organization [facility] Address [address] [place] [address] Care Team Providers Care Cane Loader Name Role Phone Unavailable Primary Care Provider Unavailabl e Source Comments Patient records contain information from all sites at [facility]. For routine questions regarding patient records, call [phone] during business hours, M-F 8:00 AM - 5:00 PM Central Time. Record requests for emergency care only can be directed to [phone] at any time.[facility] Allergies No known active allergies Medications Medication Sig Dispensed Refills Start Date End Date Status FOLIC ACID/MULTIVIT-MIN/ITZEL TEIN (CENTRUM SILVER ORAL) Take by mouth daily. 0 06/15/2009 Acti ve hydroCHLOROthiazide (for_HYDRODIURIL) 25 mg tablet Take by mouth daily. 0 06/15/2009 Acti ve hydrocortisone (for_HYTONE) 2.5 % cream Apply topically as needed. Once to twice daily to dry spot on leg 0 07/30/2017 Active [address] tablet Take 81 mg by mouth daily. 0 Active glucosamine-chondroi tin (GLUCOSAMINE-CHONDRO ITIN) 500-400 mg per capsule Take 1 capsule by mouth daily. 0 Active cetirizine HCl (CETIRIZINE ORAL) Take by mouth daily. UNSURE OF DOSE 0 04/05/2022 Active CHOLECALCIFEROL, VITAMIN D3, ORAL Take 5,000 Units by mouth daily. 0 04/05/2022 Active fexofenadine (GERARDO) 180 mg tablet Take 180 mg by mouth daily. 0 12/22/2013 Active DIPHENHYDRAMINE HCL ORAL Take 25 mg by mouth at bedtime. 0 05/03/2022 Active DOCUSATE CALCIUM ORAL Take 1 mg by mouth 2 (two) times a day. 0 04/05/2022 Active glucosamine/msm/judith droitin A (GLUCOSAMINE KFR-HUW-GONWKPEOEG ORAL) Take 2 tablets by mouth 2 (two) times a day. 0 04/05/2022 Active finasteride (PROSCAR) 5 mg tablet Take 5 mg by mouth daily. 0 04/05/2022 Active FLUTICASONE PROPIONATE NASAL Administer 1 spray into nostril(s) 2 (two) times a day. 0 11/11/2022 Active METHYLCELLULOSE, LAXATIVE, ORAL Take 1 tablet by mouth daily. 0 04/05/2022 Active multivit-minerals/FA /lycopene (ONE-A-DAY MEN'S 50 PLUS ORAL) Take 1 tablet by mouth daily. 0 04/05/2022 Active psyllium (METAMUCIL) 0.52 gram capsule Take 0.52 g by mouth 2 (two) times a day. 0 04/05/2022 Active simvastatin (ZOCOR) 20 mg tablet Take 20 mg by mouth at bedtime. 0 11/11/2022 Active tadalafiL (CIALIS) 5 mg tablet Take 5 mg by mouth daily as needed. 0 05/03/2022 Active tamsulosin 0.4 mg oral capsule Take 0.4 mg by mouth daily. 0 10/03/2022 Active Hospital, Clinic, or Other Facility Administered Medication Ordered Dose Route Frequency Start Date End Date Status lidocaine-EPINEPHrine 1 %-1:100,000 injection 1-3 mL (XYLOCAINE W/EPI) 1 - 3 mL Ifil As needed 01/19/2018 Active lidocaine-EPINEPHrine 1%-1:200,000 injection 2-50 mL (XYLOCAINE W/EPI) 2 - 50 mL inj As needed 01/14/2019 Acti ve ukfqamljafm-kiwuzbqix-OZYXVBM rine 0.25%-1%-1:200,000 injection 2-25 mL 2 - 25 mL inj As needed 01/14/2019 Active Active Problems No known active problems Encounters Date Type Department Care Team Description 08/14/2023 11:20 AM PASTA MAKER Office Visit Department of Dermatology in [place], [place] [address] [place] [address] Handfield, Dea N, M.D. Photodamage (Primary Dx); Personal History Of Other Malignant Neoplasm Of Skin; Personal History Of Malignant Melanoma Of Skin Discharge Disposition: Home or Self Care 08/11/2023 1:30 PM PASTA MAKER Clinical Communication Virtual Review in [place], [place] [address] [place] [address] Pre-visit Intake from Last 3 Months Social History Tobacco Use Types Packs/Day Years Used Date Smoking Tobacco: Unknown Overall Financial Resource Strain (CARDIA) Answe r Date Recorded How hard is it for you to pa y for the very basics like food, housing, medical care, and heating? Not hard at all 08/11/2023 Exercise Vital Sign Answer Date Recorde d On average, how many days pe r week do you engage in moderate to strenuous exercise (like a brisk walk)? 3 days 08/11/2023 On average, how many minutes do you engage in exercise at this level? 40 min 08/11/2023 Hunger Vital Sign Answer Date Recorded Within the past 12 months, y ou worried that your food would run out before you got the money to buy more. Never true 08/11/20 Within the past 12 months, t he food you bought just didn't last and you didn't have money to get more. Never true 08/11/2023 PRAPARE - Transportation Answer Date Re corded In the past 12 months, has l ack of transportation kept you from medical appointments or from getting medications? No 08/01 In the past 12 months, has l ack of transportation kept you from meetings, work, or from getting things needed for daily living? No 08/11/2023 Nutrition Answer Date Recorded Nutrition: EVOO Fat Source Unknown 08/11 On average, how many serving s of fruits and vegetables do you eat per day (serving size is equal to 1 cup or approximately the size of a tennis ball)? 0-2 08/11/2023 Dental Answer Date Recorded Dental: Regular Dentist Yes 08/11/20 Employment Answer Date Recorded Employment status Retired 08/11/2023 Housing Stability Answer Date Recorded What is your living situation today? I have a [facility] place to live 08/11/2023 Sex and Gender Information Value Date Recorded Sex Assigned at Male 01/19/2018 2:04 PM CDT Gender Identity Male 01/19/2018 2:04 PM CDT Sexual Orientation Straight 01/19/2018 2: 04 PM CDT Last Filed Vital Signs Vital Sign Reading Time Taken Comments Blood Pressure 140/89 01/14/2019 1:00 PM CDT Pulse 55 01/14/2019 1:00 PM CDT Temperature - - Respiratory Rate - - Oxygen Saturation - - Inhaled Oxygen Concentration - - Weight - - Height - - Body Mass Index - - Plan of Treatment Health Maintenance Due Date Last Done Comments Potassium Level 1940 Sodium Level 1938 Creatinine Level (Kidney Fun ction Test) 04/25/2022 04/25/2021 COVID-19 Vaccine (4 - 2022-2 4 season) 2023 06/14/2021, 10/23/2020, 10/02/2020 Influenza Vaccine (#1) 2023 , 07/10/2022, 06/26/2021, Additional history exists Depression Screening (Annual PHQ-2) 09/01/2023 Fall Risk Screen (Annual) 09/01/2023 DTaP,Tdap,and Td Vaccines (2 - Td or Tdap) 10/03/2024 10/03/2014, 06/14/2005, 03/01/1999 Pneumococcal vaccine (65+ years) Completed 06/01/2019, 10/06/2014, 02/13/2006, Additional history exists Zoster Vaccines Completed 09/20/2022, 09/01, 08/15/2010
--- OUTSIDE RECORDS SUMMARY | 2023-10-17 14:06 | XMS_ITS | Encounter Summary ---
Author Name Unknown Organization [facility] Address [address] [place] [address] Care Team Providers Care Corporate Strategy Associate Name Role Phone Unavailable Primary Care Provider Unavailabl e Reason for Visit * Reason Onset Date Comments Pre-visit Intake 08/11/2023 Encounter Details Date Type Department Care Team (Latest Contact Info) Description 08/11/2023 1:30 PM SANDWICH WRAPPER Clinical Communication Virtual Review in [place], [place] [address] [place], [place] [id number] Pre-visit Intake Social History Tobacco Use Types Packs/Day Years [...] money to buy more. Never true 08/11/20 23 Within the past 12 months, t he [...] your living situation today? I have a [facility] place to live 08/11/2023 Sex and Gender Information Value Date Recorded Sex Assigned at Male 01/19/2018 2:04 PM CDT Gender Identity Male 01/19/2018 2:04 PM CDT Sexual Orientation Straight 01/19/2018 2: 04 PM CDT documented as of this encounter Plan of Treatment Not on file documented as of this encounter Visit Diagnoses Not on filedocumented in this encounter
--- OUTSIDE RECORDS SUMMARY | 2023-10-17 14:06 | XMS_ITS | Data Portability ---
Author Name Unknown Address [address] [place] [address] Phone [phone] Organization [facility], [facility] Address [address] [place] [address] Care Team Providers Care Journeyman Lineman Name Role Phone ELLEN DAN Primary Care Provider [phone] Assessment Encounter Date Assessment Date Assessment LastModified by Organization Details LastModified Time 08/05/2022 08/05/2022 82-year-old gentleman with erectile dysfunction, chronic nocturia, chronic weakened urinary stream, and chronic incomplete bladder emptying. Not available 08/05/2022 09:43:03 11/13/2022 11/13/2022 82-year-old gentleman with erectile dysfunction, chronic nocturia, chronic weakened urinary stream, and chronic incomplete bladder emptying. [email or web address] Not available 11/12/2022 16:26:44 05/21/2023 05/21/2023 82-year-old gentleman with erectile dysfunction, chronic nocturia, chronic weakened urinary stream, and chronic incomplete bladder emptying. gopal Not available 05/19/2023 10:34:47 08/20/2023 08/20/2023 83-year-old gentleman with erectile dysfunction, chronic nocturia, chronic weakened urinary stream, and chronic incomplete bladder emptying. [email or web address] Not available 08/19/2023 13:18:52 Plan of Treatment Reminders Order Date Submit Date Provider Last Modified By Organization Details Last Modified Time Details Appointments ESTABLISH ED 10 2023 01:50P Cora Rausch MD Not available Not available Not available Lab None recorded. Referral None recorded. Procedures None recorded. Surgeries None recorded. Imaging None recorded. Medication Orders betametha sone dipropion ate 0.05 % topical cream 2022 023 [facility], [address] [place] [address], [id number], 08/20/2023 11:41:26 finasteri de 5 mg tablet 2022 023 [facility] [address], [address] [place] [address], [id number], 05/21/2023 12:01:22 tamsulosi n 0.4 mg capsule 2022 023 [facility] [address], [address] [place] [address], [id number], 05/21/2023 12:01:21 sildenafi l 100 mg tablet 2022 023 [facility] [address], [address] [place] [address], [id number], 11/13/2022 12:12:11 tadalafil 5 mg tablet 2022 023 [facility] [address], [address] [place] [address], [id number], 11/13/2022 12:12:12 tadalafil 5 mg tablet [address], [id number], 08/05/2022 16:00:28 sildenafi l 100 mg tablet [address], [id number], 08/05/2022 16:00:22 Patient TargetsNo targets recorded. Patient Instructions Encounter Date Encounter Id Patient Instructions Last Modified By Organization Details Last Modified Time 05/21/2023 [id number] He would like to proceed with manual traction therapy. What I would like you to do is 2-3 times per day spend a total of 2 minutes performing stretching exercises. First you will stretch your penis straight until is is uncomfortably tight. Hold this for 1 minute. The use your other hand to create a fulcrum and bend the penis the opposite way from the direction that it bends with erections. Again hold this for 1 minute. You should perform these stretching exercises in the flaccid state. Not available 05/21/2023 13:52:36 Reason for Referral None Reported. Results Created Date Observation Date Name Description Value Unit Range Abnormal Flag LastModifiedBy Organization Detail LastModifiedTime 12/09/19 21 12/06/2020 measu remen t of post- voidi ng resid ual urine and/o r bladd er capac ity (PROC ) No observ ation record ed. Not Available 08/05/2022 12:48:54 02/14/20 21 02/07/2021 measu remen t of post- voidi ng resid ual urine and/o r bladd er capac ity (PROC ) No observ ation record ed. Not Available 08/05/2022 12:48:54 05/17/20 21 05/09/2021 measu remen t of post- voidi ng resid ual urine and/o r bladd er capac ity (PROC ) No observ ation record ed. Not Available 08/05/2022 12:48:54 11/20/19 23 11/13/2022 bladd er scan (PROC ) No observ ation record ed. Not Available 05/21/2023 13:48:17 Result Notes None recorded. Procedures Surgical History Date Name Laterality Status Provider Name and Address Organization Details Recorded Time 3 UroCuff completed Sarah Juan null, [facility] 08/12/2023 12:12:43 3 Bladder Scan completed Sarah young [facility] 08/12/2023 12:11:40 3 Bladder Scan completed Raquel Santillan null, [facility] 05/21/2023 11:50:29 3 Bladder Scan completed Radha Maravilla null, [facility] 11/13/2022 11:54:43 2 Bladder Scan completed Radha Maravilla [facility] 08/05/2022 12:31:56 Imaging Results Imaging Date Name Status [facility]Modified by [facility] Details LastModified Time 12/06/2020 measurement of post-voiding residual urine and/or bladder capacity (PROC) completed [employer] Information not available 08/05/2022 12:48:54 02/07/2021 measurement of post-voiding residual urine and/or bladder capacity (PROC) completed [employer] [place] Information not available 08/05/2022 12:48:54 05/09/2021 measurement of post-voiding residual urine and/or bladder capacity (PROC) completed [employer] [place] Information not available 08/05/2022 12:48:54 11/13/2022 bladder scan (PROC) completed [employer] Information not available 05/21/2023 13:48:17 Procedure Notes None recorded. Medical Equipment None Reported. Allergies No known drug allergies Medications Name Sig Start Date Stop Date Status Note LastModified by Organization Details LastModified Time prednisone 10 mg tablet TAKE 4 TABS(40 MG) BY MOUTH ONCE DAILY WITH A MEAL FOR 3 DAYS, THEN 3 TABS(30 MG) ONCE DAILY FOR 3 DAYS, THEN 2 TABS DAILY FOR 3 DAYS/ 1 TAB FOR 3 DAYS 05/21 completed Not Available Not Available Not Available sulfamethox azole 800 mg-trimetho prim 160 mg tablet TAKE ONE TABLET BY MOUTH TWICE A DAY 08/05 completed Not Available Not Available Not Available sildenafil 100 mg tablet TAKE 1 TABLET BY MOUTH ONCE DAILY - TO TAKE IN COMBINATI ON WITH DAILY TADALAFIL active Not Available Not Available No t Available oxycodone-a cetaminophe n 5 mg-325 mg tablet TAKE ONE TABLET BY MOUTH EVERY 4-8 HOURS NEEDED FOR PAIN 11/13 completed Not Available Not Available Not Available tamsulosin 0.4 mg capsule TAKE 1 CAPSULE BY MOUTH ONCE DAILY active Not Available Not Available No t Available cephalexin 500 mg capsule TAKE ONE CAPSULE BY MOUTH FOUR TIMES DAY 08/05 completed Not Available Not Available Not Available simvastatin 20 mg tablet TAKE ONE TABLET BY MOUTH AT BEDTIME active Not Available Not Available No t Available betamethaso ne dipropionat e 0.05 % topical cream active Not Available Not Available Not Available ammonium lactate 12 % topical cream APPLY AFFECTED ITCHY AREAS ON BODY 1-2X DAILY 08/20 completed Not Available Not Available Not Available hydrochloro thiazide 25 mg tablet TAKE ONE TABLET BY MOUTH DAILY active Not Available Not Available No t Available fluticasone propionate 50 mcg/actuati on nasal spray,suspe nsion INSTILL 2 SPRAYS INTO AFFECTED NOSTRIL/S DAILY active Not Available Not Available No t Available ipratropium bromide 21 mcg (0.03 %) nasal spray 08/20 completed Not Available Not Available Not Available finasteride 5 mg tablet TAKE ONE TABLET BY MOUTH ONCE DAILY. active Not Available Not Available No t Available tadalafil 5 mg tablet TAKE 1 TABLET BY MOUTH ONCE DAILY - TO TAKE IN COMBINATI ON WITH ON-DEMAND SILDENAFI L active Not Available Not Available No t Available sildenafil (pulmonary hypertensio n) 20 mg tablet TAKE 40 100MG DAILY NEEDED AT LEAST 1 HOUR BEFORE SEXUAL ACTIVITY 08/05 completed Not Available Not Available Not Available Afluria Quad 60 mcg (15 mcg x 4)/0.5 mL intramuscul ar susp. Inject as directed. To be administe red by a pharmacis t. 11/13 completed Not Available Not Available Not Available BinaxNOW COVID-19 Ag Self Test kit USE TO TEST FOR COVID 08/05 completed Not Available Not Available Not Available Vitals Date Recorded Body weight Body mass index (BMI) Body height Provider Name and Address Organization Details Last Updated DateTime 08/05/2022 54453.66 g 24.4 kg/m2 180.[address] [facility] 08/05/2022 12:32:39 Date Recorded Body height Body mass index (BMI) Body weight Provider Name and Address Organization Details Last Updated DateTime 11/13/2022 180.34 cm 25.1 kg/m2 [address]6315.[address] [facility] 11/13/2022 11:53:36 Date Recorded Body height Body mass index (BMI) Body weight Provider Name and Address Organization Details Last Updated DateTime 05/21/2023 180.34 cm 24.4 kg/m2 69167.[address] [facility] 05/21/2023 11:48:12 Date Recorded Body height Body mass index (BMI) Body weight Provider Name and Address Organization Details Last Updated DateTime 08/20/2023 180.34 cm 24.4 kg/m2 63846.66 g Radha young [facility] 08/20/2023 11:25:54 Social History Question Answer Notes LastModified by Organizat ion Details LastModified Time Tobacco Smoking Status Former Smoker Radha young [facility] 08/05/2022 12:34:25 What Is Your Level Of Alcohol Consumption? Occasional Information not available 05/21/2023 What Is Your Level Of Caffeine Consumption? Moderate Information not available 05/21/2023 When Did You Quit Smoking? 14+yearsotf yanez 1984 Information not available 08/05/2022 What Was The Date Of Your Most Recent Tobacco Screening? 08/20/2023 Information not available 08/20/2023 Has Tobacco Cessation Counseling Been Provided? No Information not available 08/20/2023 Do You Or Have You Ever Used Any Other Forms Of Tobacco Or Nicotine? No Information not available 08/20/2023 Sex: Male Functional Status None recorded. Mental Status None recorded. Family History Nothing Reported. Medical History Condition Response Sexually Transmitted Infection N Diabetes N Bleeding Disorder N Other N High Blood Pressure N Kidney Stones N Cancer N Lung Disease N Depression N High Cholesterol N GERD/Acid Reflux N Heart Disease N Immunizations Vaccine Type Date Status Provider Name and Address Organization Details Recorded Time zoster recombinant 09/20/2022 completed Radha young [facility] 08/20/2023 11:26:00 pneumococcal polysaccharide PPV23 02/13/2006 completed Radha young [facility] 08/20/2023 11:26:00 influenza, injectable, quadrivalent, preservative free 09/20/2009 tiffany young [facility] 08/20/2023 11:26:00 influenza, injectable, quadrivalent 06/08/2020 tiffany young [facility] 05/21/2023 11:48:17 influenza, trivalent, adjuvanted 04/28/2017 completed Raquel young [facility] 05/21/2023 11:48:17 influenza, trivalent, adjuvanted 05/22/2018 completed Raquel young, [facility] 05/21/2023 11:48:17 zoster recombinant 09/18/2020 completed Raquel young, [facility] 05/21/2023 11:48:17 influenza, high-dose, quadrivalent 06/26/2021 completed Raquel Santillan null, [facility] 05/21/2023 11:48:18 influenza, high-dose, quadrivalent 07/10/2022 completed Raquel young, [facility] 05/21/2023 11:48:18 COVID-19, mRNA, LNP-S, PF, 30 mcg/0.3 mL dose [facility] 11:48:18 [facility]dap 10/03/2014 [facility] 11:48:18 Novel [id number], all formulations 09/20/2009 [facility] 11:48:18 Pneumococcal conjugate PCV 13 10/06/2014 [facility] 11:48:18 zoster live 08/15/2010 [facility] 11:48:18 Influenza, high dose seasonal 05/21/2016 [facility] 11:48:18 Influenza, high dose seasonal 06/16/2015 [facility] 11:48:18 Influenza, high dose seasonal 06/17/2019 [facility] 11:48:18 Influenza, seasonal, injectable 05/16/2011 [facility] 11:48:18 Influenza, seasonal, injectable 06/17/2012 [facility] 11:48:18 Influenza, seasonal, injectable 06/24/[address] [facility] 05/21/2023 11:48:18 Influenza, seasonal, injectable, preservative free 05/16/[address] [facility] 05/21/2023 11:48:18 Td (adult), 2 Lf tetanus toxoid, preservative free, adsorbed 06/14/[address] [facility] 05/21/2023 11:48:18 influenza, injectable, quadrivalent, preservative free 05/18/[address] [facility] 05/21/2023 11:48:18 Past Encounters Encounter ID Performer Location Encounter Start Date Encounter Closed Date Diagnosis/Indication [id number] Alexi Rausch MD [facility] [address] [place] [address] 08/05/2022 12:05:56 08/07/2022 09:18:29 Primary erectile dysfunction Nocturia Slowing of urinary stream Incomplete emptying of bladder [id number] Alexi Rausch MD [facility] [address] [place] [address] 11/13/2022 11:45:39 11/15/2022 11:07:06 Primary erectile dysfunction Slowing of urinary stream Incomplete emptying of bladder Nocturia [id number] Alexi Rausch MD [facility] [address] [place] [address] 05/21/2023 11:21:15 05/28/2023 21:22:36 Primary erectile dysfunction Slowing of urinary stream Incomplete emptying of bladder Nocturia Induration penis plastica [id number] Sarah Juan [facility] [address] [place] [address] 08/12/2023 11:18:49 08/18/2023 15:34:14 Slowing of urinary stream [id number] Alexi Rausch MD [facility] [address] [place] [address] 08/20/2023 11:10:04 08/20/2023 15:26:21 Primary erectile dysfunction Slowing of urinary stream Incomplete emptying of bladder Nocturia Induration penis plastica Phimosis Health Concerns Section Related Observation LastModified by Organization Detai ls LastModified Time None Recorded Concern Status LastModified by Organization Details LastModified Time None Recorded Advance Directives Directive None Recorded Payers Encounter Date Sequence Insurance Name Policy Number Policy Ortega Covered Member ID Ortega Member ID Guarantor Name 08/20/2023 1 [place] [employer] Qu[place] P Trangsrud [id number] Quinton P Trangsrud 08/20/2023 2 [place] [id number] Quinton P Trangsrud [id number] Quinton P Trangsrud 08/12/2023 1 [place] [employer] Quinton P Trangsrud [id number] Quinton P Trangsrud 08/12/2023 2 [place] [id number] Quinton P Trangsrud [id number] Quinton P Trangsrud 05/21/2023 1 [place] [employer] Qu[place] P Trangsrud [id number] Quinton P Trangsrud 05/21/2023 2 [place] [id number] Quinton P Trangsrud [id number] Quinton P Trangsrud 11/13/2022 1 [place] [employer] Quinton P Trangsrud [id number] Quinton P Trangsrud 11/13/2022 2 [place] [id number] Quinton P Trangsrud [id number] Quinton P Trangsrud 08/05/2022 1 [place] [employer] Quinton P Trangsrud [id number] Quinton P Trangsrud 08/05/2022 2 [place] [id number] Quinton P Trangsrud [id number] Quinton P Trangsrud Notes Date Note Type Note Provider Name and Address Organization Details Recorded Time 08/05/2022 text/html HPI Notes: Mr. De Anda is a very pleasant 82-year-old gentleman who was referred to me by his primary care provider, Dr. Ellen Dan, regarding his erectile dysfunction. Patient states that he believes he has had erectile dysfunction for a number of years now however this really was not an issue as his got sick with the aortic aneurysm and underwent extensive surgery for this. Unfortunately she did end up passing a couple years ago and so he has not been sexually active for a number of years. He he is now in a new relationship and would like to reengage in sexual activity but find that he is having trouble. When he started a relationship he did seek care at the [facility] where he underwent shockwave therapy for his erectile dysfunction. Initially this provided absolutely no benefit however he has noted that he has had some resumption of spontaneous nocturnal erections more recently. He was also given a prescription for sildenafil by his primary care provider which she does believe his provided some benefit but he has not yet had a erection suitable for penetrative intercourse. He is interested options that are available. In further discussion on how he is administering the sildenafil he is taking it generally with food in several hours before possible activity. He has also had some mild voiding dysfunction primarily with slowing of his stream urinary frequency and nocturia. He was started on tamsulosin back in January of this year and has also been taking saw palmetto since 2018. He did not feel as though the Flomax is added that much although he has seen some additional improvement from it since. 02/07/21 Here for follow up chronic erectile dysfunction, chronic nocturia, chronic weakened urinary stream, and chronic urinary frequency. At last visit we added finasteride to his tamsulosin for voiding and he was encouraged to use sildenafil more frequently. Overall he feels like there is some improvement to his urination but not a great deal. For his erections he is still responding to sildenafil but it takes a while to take it's effect, to the point that he is stressed about being ready to perform. 05/09/21 Here for follow up chronic erectile dysfunction, chronic nocturia, chronic weakened urinary stream, and chronic urinary frequency. Maintained on combination therapy tamsulosin and finasteride with significant reduction in his post-void residual volume. Today he reports that his urination has been about the same, his most bothersome symptom is nocturia up to 3 times per night. From an erection standpoint, we transitioned him to daily tadalafil to try and improve his spontaneity. Today he reports he feels like to needs additional help. 11/07/21 Here for follow up chronic erectile dysfunction, chronic nocturia, chronic weakened urinary stream, and chronic urinary frequency. Maintained on finasteride and tadalafil. Doing very well. 08/05/2022: Here for follow up chronic erectile dysfunction, chronic nocturia, chronic weakened urinary stream, and chronic urinary frequency. Maintained on finasteride and tadalafil. Feels like he is doing very well from a urination standpoint but having increased issues with erections. Alexi Rausch MD [address] [place] [address],[address], [place], [address], [facility] 08/05/2022 12:50:35 11/13/2022 text/html HPI Notes: Mr. De Anda is a very pleasant 82-year-old gentleman who was referred to me by his primary care provider, Dr. Ellen Dan, regarding his erectile dysfunction. Patient states that he believes he has had erectile dysfunction for a number of years now however this really was not an issue as his got sick with the aortic aneurysm and underwent extensive surgery for this. Unfortunately she did end up passing a couple years ago and so he has not been sexually active for a number of years. He he is now in a new relationship and would like to reengage in sexual activity but find that he is having trouble. When he started a relationship he did seek care at the [facility] where he underwent shockwave therapy for his erectile dysfunction. Initially this provided absolutely no benefit however he has noted that he has had some resumption of spontaneous nocturnal erections more recently. He was also given a prescription for sildenafil by his primary care provider which she does believe his provided some benefit but he has not yet had a erection suitable for penetrative intercourse. He is interested options that are available. In further discussion on how he is administering the sildenafil he is taking it generally with food in several hours before possible activity. He has also had some mild voiding dysfunction primarily with slowing of his stream urinary frequency and nocturia. He was started on tamsulosin back in January of this year and has also been taking saw palmetto since 2018. He did not feel as though the Flomax is added that much although he has seen some additional improvement from it since. 02/07/21 Here for follow up chronic erectile dysfunction, chronic nocturia, chronic weakened urinary stream, and chronic urinary frequency. At last visit we added finasteride to his tamsulosin for voiding and he was encouraged to use sildenafil more frequently. Overall he feels like there is some improvement to his urination but not a great deal. For his erections he is still responding to sildenafil but it takes a while to take it's effect, to the point that he is stressed about being ready to perform. 05/09/21 Here for follow up chronic erectile dysfunction, chronic nocturia, chronic weakened urinary stream, and chronic urinary frequency. Maintained on combination therapy tamsulosin and finasteride with significant reduction in his post-void residual volume. Today he reports that his urination has been about the same, his most bothersome symptom is nocturia up to 3 times per night. From an erection standpoint, we transitioned him to daily tadalafil to try and improve his spontaneity. Today he reports he feels like to needs additional help. 11/07/21 Here for follow up chronic erectile dysfunction, chronic nocturia, chronic weakened urinary stream, and chronic urinary frequency. Maintained on finasteride and tadalafil. Doing very well. 08/05/2022: Here for follow up chronic erectile dysfunction, chronic nocturia, chronic weakened urinary stream, and chronic urinary frequency. Maintained on finasteride and tadalafil. Feels like he is doing very well from a urination standpoint but having increased issues with erections. 11/13/2022: Here for follow up chronic erectile dysfunction, chronic nocturia, chronic weakened urinary stream, and chronic urinary frequency. At last visit was started on combination therapy and doing very well. Alexi Rausch MD [address], [place], [address], [facility] 11/13/2022 14:04:25 05/21/2023 text/html HPI Notes: Mr. De Anda is a very pleasant 82-year-old gentleman who was referred to me by his primary care provider, Dr. Ellen Dan, regarding his erectile dysfunction. Patient states that he believes he has had erectile dysfunction for a number of years now however this really was not an issue as his got sick with the aortic aneurysm and underwent extensive surgery for this. Unfortunately she did end up passing a couple years ago and so he has not been sexually active for a number of years. He he is now in a new relationship and would like to reengage in sexual activity but find that he is having trouble. When he started a relationship he did seek care at the [facility] where he underwent shockwave therapy for his erectile dysfunction. Initially this provided absolutely no benefit however he has noted that he has had some resumption of spontaneous nocturnal erections more recently. He was also given a prescription for sildenafil by his primary care provider which she does believe his provided some benefit but he has not yet had a erection suitable for penetrative intercourse. He is interested options that are available. In further discussion on how he is administering the sildenafil he is taking it generally with food in several hours before possible activity. He has also had some mild voiding dysfunction primarily with slowing of his stream urinary frequency and nocturia. He was started on tamsulosin back in January of this year and has also been taking saw palmetto since 2018. He did not feel as though the Flomax is added that much although he has seen some additional improvement from it since. 02/07/21 Here for follow up chronic erectile dysfunction, chronic nocturia, chronic weakened urinary stream, and chronic urinary frequency. At last visit we added finasteride to his tamsulosin for voiding and he was encouraged to use sildenafil more frequently. Overall he feels like there is some improvement to his urination but not a great deal. For his erections he is still responding to sildenafil but it takes a while to take it's effect, to the point that he is stressed about being ready to perform. 05/09/21 Here for follow up chronic erectile dysfunction, chronic nocturia, chronic weakened urinary stream, and chronic urinary frequency. Maintained on combination therapy tamsulosin and finasteride with significant reduction in his post-void residual volume. Today he reports that his urination has been about the same, his most bothersome symptom is nocturia up to 3 times per night. From an erection standpoint, we transitioned him to daily tadalafil to try and improve his spontaneity. Today he reports he feels like to needs additional help. 11/07/21 Here for follow up chronic erectile dysfunction, chronic nocturia, chronic weakened urinary stream, and chronic urinary frequency. Maintained on finasteride and tadalafil. Doing very well. 08/05/2022: Here for follow up chronic erectile dysfunction, chronic nocturia, chronic weakened urinary stream, and chronic urinary frequency. Maintained on finasteride and tadalafil. Feels like he is doing very well from a urination standpoint but having increased issues with erections. 11/13/2022: Here for follow up chronic erectile dysfunction, chronic nocturia, chronic weakened urinary stream, and chronic urinary frequency. At last visit was started on combination therapy and doing very well. 05/21/2023: Here for follow up chronic erectile dysfunction, chronic nocturia, chronic weakened urinary stream, and chronic urinary frequency. Today reports that he is doing well, relatively stable to previous. 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 De Anda is a very pleasant 83-year-old gentleman who was referred to me by his primary care provider, Dr. Ellen Dan, regarding his erectile dysfunction. Patient states that he believes he has had erectile dysfunction for a number of years now however this really was not an issue as his got sick with the aortic aneurysm and underwent extensive surgery for this. Unfortunately she did end up passing a couple years ago and so he has not been sexually active for a number of years. He he is now in a new relationship and would like to reengage in sexual activity but find that he is having trouble. When he started a relationship he did seek care at the [facility] medical group where he underwent shockwave therapy for his erectile dysfunction. Initially this provided absolutely no benefit however he has noted that he has had some resumption of spontaneous nocturnal erections more recently. He was also given a prescription for sildenafil by his primary care provider which she does believe his provided some benefit but he has not yet had a erection suitable for penetrative intercourse. He is interested options that are available. In further discussion on how he is administering the sildenafil he is taking it generally with food in several hours before possible activity. He has also had some mild voiding dysfunction primarily with slowing of his stream urinary frequency and nocturia. He was started on tamsulosin back in January of this year and has also been taking saw palmetto since 2018. He did not feel as though the Flomax is added that much although he has seen some additional improvement from it since. 02/07/21 Here for follow up chronic erectile dysfunction, chronic nocturia, chronic weakened urinary stream, and chronic urinary frequency. At last visit we added finasteride to his tamsulosin for voiding and he was encouraged to use sildenafil more frequently. Overall he feels like there is some improvement to his urination but not a great deal. For his erections he is still responding to sildenafil but it takes a while to take it's effect, to the point that he is stressed about being ready to perform. 05/09/21 Here for follow up chronic erectile dysfunction, chronic nocturia, chronic weakened urinary stream, and chronic urinary frequency. Maintained on combination therapy tamsulosin and finasteride with significant reduction in his post-void residual volume. Today he reports that his urination has been about the same, his most bothersome symptom is nocturia up to 3 times per night. From an erection standpoint, we transitioned him to daily tadalafil to try and improve his spontaneity. Today he reports he feels like to needs additional help. 11/07/21 Here for follow up chronic erectile dysfunction, chronic nocturia, chronic weakened urinary stream, and chronic urinary frequency. Maintained on finasteride and tadalafil. Doing very well. 08/05/2022: Here for follow up chronic erectile dysfunction, chronic nocturia, chronic weakened urinary stream, and chronic urinary frequency. Maintained on finasteride and tadalafil. Feels like he is doing very well from a urination standpoint but having increased issues with erections. 11/13/2022: Here for follow up chronic erectile dysfunction, chronic nocturia, chronic weakened urinary stream, and chronic urinary frequency. At last visit was started on combination therapy and doing very well. 05/21/2023: Here for follow up chronic erectile dysfunction, chronic nocturia, chronic weakened urinary stream, and chronic urinary frequency. Today reports that he is doing well, relatively stable to previous. 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 Today reports he is doing very well. Completed a UroCuff for my review which is consistent with bladder outlet obstruction. Alexi Rausch MD [address] [facility],[address], [place], [address], [facility] 08/20/2023 13:51:12
--- OUTSIDE RECORDS SUMMARY | 2023-10-17 14:06 | XMS_ITS | Encounter Summary ---
Author Name Unknown Organization [facility] Address [address] [place] [address] Care Team Providers Care Corset Maker Name Role Phone Unavailable Primary Care Provider Unavailabl e Reason for Referral * Outpatient (Routine) - Authorized Specialty Diagnoses / Procedures Referred By Franny gonzales Referred To Contact Dermatology Diagnoses Personal History Of Other Malignant Neoplasm Of Skin Personal History Of Malignant Melanoma Of Skin Carol Croft M.D. [address] [place] [phone] [facility] Referral ID Status Reason Start Date Expiration Date V isits Requested Visits Authorized [id number] Authorized 08/14/2023 08/13/2026 1 1 Scheduling Instructions [employer] Reason for Visit * Outpatient (Routine) - Closed Specialty Diagnoses / Procedures Referred By Franny gonzales Referred To Contact Dermatology Diagnoses Personal History Of Other Malignant Neoplasm Of Skin Personal History Of Malignant Melanoma Of Skin Freddie Gardner M.D. [address] [place] [phone] [facility] Referral ID Status Reason Start Date Expiration Date Visits Re quested Visits Authorized [id number] Closed 08/16/2022 08/15/2025 1 1 Encounter Details Date Type Department Care Team ([facility] st Contact Info) Description 08/14/2023 11:20 AM [employer] Office Visit Department of Dermatology in [place], [place] [address] [place] [phone] Dea Geller M.D. [address] [place] [address] Photodamage (Primary Dx); Personal History Of Other Malignant Neoplasm Of Skin; Personal History Of Malignant Melanoma Of Skin Discharge Disposition: Home or Self Care Social History Tobacco Use Types Packs/Day Years [...] your living situation today? I have a [facility] place to live 08/11/2023 Sex and Gender Information Value Date Recorded Sex Assigned at Male 01/19/2018 2:04 PM CDT Gender Identity Male 01/19/2018 2:04 PM CDT Sexual Orientation Straight 01/19/2018 2: 04 PM CDT documented as of this encounter Progress Notes * Dea Geller M.D. - 08/14/2023 11:20 AM CST CORRESPONDENCE TO: Dea Geller M.D. Supervised by: Dr. Carlo Gross Patient seen and discussed with supervising sales operations consultant,who evaluated the patient and concurs with the assessment and plan. REFERRED BY: Freddie Gardner M.D. [address] [place] [phone] CHIEF COMPLAINT Skin cancer screening exam HISTORY OF PRESENT ILLNESS Mr. Quinton De Anda is a 83 y.o. male who presents for full body skin exam. He has multiplemalignant melanoma (see below). He also has history of BCC. He was last seen in our department 08/2022 for full body skin exam without significant findings. Today, the patient does not report any persistently itchy, tender, bleeding, or changing skin lesions. He denies fever/chills, unintentional change in weight, headache, cough, sore throat, shortness of breath, chest pain, nausea/vomiting, diarrhea/constipation, GI upset, and blood in the stool/urine. Melanoma history: 2019: Malignant melanoma, Breslow depth 0.2 mm, right lower paraspinal back s/p excision with Breslow depth of 0.4 mm 2010: Malignant melanoma in situ, left forearm, status post excision 2009: Malignant melanoma, Breslow depth 0.6 mm, left abdomen status post excision 2009: Malignant melanoma, left shoulder, Breslow depth 0.45 mm status post excision Social history: He was an [employer] and served in the [place] war. He enjoys [employer]. PHYSICAL EXAM General: Awake, alert, in no acute distress, and with appropriate affect. Eyes: No eyelid abnormalities. No scleral injection. Skin: Full skin examination of the scalp, face, neck, chest, abdomen, back, upper extremities, lower extremities, the digits and nails, suprapubic area, and buttocks was performed per patient request. Rawls type 2 skin with minimal dermatoheliosis on sun-exposed areas. Scattered light brown to dark brown, symmetric, uniform macules and thin papules on the trunk, and extremities with reassuring features under dermoscopy. Multiple pink to brown waxy, stuck-on appearing papules and plaques on the chest, abdomen, and back consistent with seborrheic keratoses. Various 1-2 mm red to purple dome shaped papules noted on the trunk, upper extremities, and lower extremities consistent with hudson angiomas. No palpable cervical, clavicular, axillary, or inguinal lymphadenopathy. ASSESSMENT AND PLAN #1 History of multiple malignant melanomas #2 History of BCC #3 Dermatoheliosis Sun protection and sun avoidance were reviewed with the patient. Educational materials were provided regarding skin self-examination, the warning signs and symptoms of skin cancer, and the proper useof sunscreens with SPF 30 or higher. I would recommend a full skin cancer screening examination with an appropriately trained clinician every year. #4 Multiple nevi The ABCDE criteria for melanoma was reviewed with the patient. None of the patient's nevi reach theclinical threshold for biopsy. I recommend continued sun protection, self-skin examinations, and observation. Should any of the patient's nevi change in size, color, texture, or shape or develop symptoms such as itching or bleeding, I recommend an immediate return visit for reassessment. #5 Seborrheic keratoses #6 Hudson angiomas #7 Solar lentigines The benign nature of these skin lesions was discussed with the patient. No treatment is required. Irecommend continued observation. Should symptoms or changes develop related to these conditions, I would recommend a return visit for reassessment. PATIENT EDUCATION Ready to learn. No apparent learning barriers were identified. Learning preferences include listening. Explained diagnosis and treatment plan; patient/guardian of patient expressed understanding of the content. [employer] Associated attestation - Carol Croft M.D. - 08/14/2023 11:13 AM [employer] I saw and evaluated the patient, participating in the nieto portions of the service. I reviewed the resident/fellow???s note. I agree with the resident/fellow???s findings and plan. documented in this encounter Plan of Treatment Scheduled Referrals Name Type Priority Associated Diagnoses Order Schedule Dermatology office visit (clinic) Outpatient Referral Routine Personal History Of Other Malignant Neoplasm Of Skin Personal History Of Malignant Melanoma Of Skin Expected: 08/14/2024 (Approximate), Expires: 11/12/2024 documented as of this encounter Visit Diagnoses Diagnosis Photodamage- Primary Personal History Of Other Malignant Neoplasm Of Skin Personal History Of Malignant Melanoma Of Skin documented in this encounter
--- OUTSIDE RECORDS SUMMARY | 2023-10-17 14:06 | XMS_ITS | Continuity of Care Document ---
Author Name Unknown Address [address] [place] [address] Phone [phone] [facility] Address [address] [place] [address] Care Team Providers Care Loadmaster Name Role Phone ELLEN DAN Primary Care Provider Assessment Encounter Date Assessment Date Assessment LastModified by Organization Details LastModified Time 08/20/2023 08/20/2023 83-year-old gentleman with erectile dysfunction, [...] ate 0.05 % topical cream 2022 023 [facility] [address] [place] [address], [id number], 08/20/2023 11:41:26 Patient TargetsNo targets recorded. Patient InstructionsNo instructions recorded. Reason for Referral None Reported. Procedures Surgical History Date Name Laterality Status Provider Name and Address Organization Details Recorded Time 3 UroCuff completed Sarah young [facility] 08/12/2023 12:12:43 3 Bladder Scan completed Sarah young [facility] 08/12/2023 12:11:40 3 Bladder Scan completed Raquel young [facility] 05/21/2023 11:50:29 3 [facility] 11:54:43 2 Bladder Scan completed Radha young, [facility] 08/05/2022 12:31:56 Imaging Results None recorded. Procedure Notes None recorded. Medical Equipment None [...] Available Not Available Vitals Date Recorded Body height Body mass index (BMI) Body weight Provider Name and Address Organization Details Last Updated DateTime 08/20/2023 180.34 cm 24.4 kg/m2 99791.66 g Radha young [facility] 08/20/2023 11:25:54 Social History Question Answer Notes LastModified by Organizat ion Details LastModified Time Tobacco Smoking Status Former Smoker Radha young [facility] 08/05/2022 12:34:25 What Is Your Level Of Alcohol Consumption? Occasional Information not available 05/21/2023 What Is Your Level Of Caffeine Consumption? Moderate Information not available 05/21/2023 When Did You Quit Smoking? 16+yearsotf Walker Information not available 08/05/2022 What Was The [...] History Nothing Reported. Medical History Condition Response Other N High Blood Pressure N Kidney Stones N Lung Disease N Depression N GERD/Acid Reflux N Sexually Transmitted Infection N Cancer N High Cholesterol N Diabetes N Bleeding Disorder N Heart Disease N Immunizations Vaccine Type Date Status Provider Name and Address Organization Details Recorded Time zoster [facility] 11:26:00 pneumococcal polysaccharide PPV23 02/13/2006 [facility] 11:26:00 influenza, injectable, quadrivalent, preservative free 09/20/2009 [facility] 11:26:00 influenza, injectable, quadrivalent 06/08/2020 [facility]2023 11:48:17 influenza, trivalent, adjuvanted 04/28/2017 completed Raquel [facility]ill[facility] 05/21/2023 11:48:17 influenza, trivalent, adjuvanted 05/22/2018 [facility] 11:48:17 zoster recombinant 09/18/2020 [facility]23 11:48:17 influenza, high-dose, quadrivalent 06/26/2021 [facility] 11:48:18 influenza, high-dose, quadrivalent 07/10/2022 [facility]23 11:48:18 COVID-19, mRNA, LNP-S, PF, 30 mcg/0.3 mL dose 06/14/2021 [facility] 11:48:18 Tdap 10/03/2014 [facility]2023 11:48:18 Novel Raflehtgr-[id number], all formulations 09/20/2009 [facility]2023 11:48:18 Pneumococcal conjugate PCV 13 10/06/2014 [facility]2023 11:48:18 zoster live 08/15/2010 [facility]/2023 11:48:18 Influenza, high dose seasonal 05/21/2016 [facility]2023 11:48:18 Influenza, high dose seasonal 06/16/2015 completed Raquel Santillan [facility] 05/21/2023 11:48:18 Influenza, high dose seasonal 06/17/2019 [facility]2023 11:48:18 Influenza, seasonal, injectable 05/16/2011 [facility]2023 11:48:18 Influenza, seasonal, injectable 06/17/2012 [facility]2023 11:48:18 Influenza, seasonal, injectable 06/24/2013 [facility]2023 11:48:18 Influenza, seasonal, injectable, preservative free 05/16/2010 [facility]2023 11:48:18 Td (adult), 2 Lf tetanus toxoid, preservative free, adsorbed 06/14/2005 [facility]2023 11:48:18 influenza, injectable, quadrivalent, preservative free 05/18/2014 [facility]2023 11:48:18 Past Encounters Encounter ID Performer Location Encounter Start Date Encounter Closed Date Diagnosis/Indication [id number] Sarah Juan [facility] [address] [place] [address] 08/12/2023 11:18:49 08/18/2023 15:34:14 Slowing of urinary stream [id number] Alexi Rausch MD [facility] [address] [place] [address] 08/20/2023 11:10:04 08/20/2023 15:26:21 Primary erectile dysfunction Slowing of urinary stream Incomplete emptying of bladder Nocturia Induration penis plastica Phimosis Health Concerns Section Related Observation LastModified by Organization Detai ls LastModified Time None Recorded Concern Status LastModified by Organization Details LastModified Time None Recorded Payers Encounter Date Sequence Insurance Name Policy Number Policy Ortega Covered Member ID Ortega Member ID Guarantor Name 08/20/2023 1 [place]: [employer] Quinton De Anda [id number] Quinton De Anda 08/20/2023 2 [place] [id number] Quinton De Anda [id number] Quinton De Anda Notes Date Note Type Note Provider Name and Address Organization Details Recorded Time 08/20/2023 text/html HPI Notes: Mr. De Anda [...] relationship he did seek care at the [facility] medical group where he underwent shockwave therapy [...] bladder outlet obstruction. Alexi Rausch MD [address] [facility],[address], [place], [address], [facility] 08/20/2023 13:51:12
--- OUTSIDE RECORDS SUMMARY | 2023-10-17 14:06 | XMS_ITS ---
Author Name Unknown Organization [facility] Address [address] [place] [address] Care Team Providers Care Fish Hatchery Inspector Name Role Phone Unavailable Unavailable Unavailable Surgery Details Not on file Complications Check Surgery Details section. Procedure Estimated Blood Loss Check Surgery Details section. Procedure Findings Check Surgery Details section. Procedure Specimens Taken Check Surgery Details section.
--- OUTSIDE RECORDS SUMMARY | 2023-10-17 14:06 | XMS_ITS | Referral Summary ---
Author Name Unknown Organization [facility] Address [address] [place] [address] Care Team Providers Care Overseamer Name Role Phone Unavailable Primary Care Provider Unavailabl e Source Comments Patient records contain information from all sites at [facility]. For routine questions regarding patient records, call [phone] during business hours, M-F 8:00 AM - 5:00 PM Central Time. Record requests for emergency care only can be directed to [phone] at any time.[facility] Encounters Date Type Department Care Team Description 08/14/2023 11:20 AM RESEARCH ASSISTANT Office Visit Department of Dermatology in [address] [phone] Dea Geller M.D. Photodamage (Primary Dx); Personal History Of Other Malignant Neoplasm Of Skin; Personal History Of Malignant Melanoma Of Skin Discharge Disposition: Home or Self Care 08/11/2023 1:30 PM RESEARCH ASSISTANT Clinical Communication Virtual Review in [address] [address] Pre-visit Intake from Last 3 Months Allergies No known active allergies Medications Medication [...] 0 04/05/2022 Active glucosamine/msm/judith droitin A (GLUCOSAMINE DPP-RIE-DOOSPPFPXS ORAL) Take 2 tablets by mouth 2 [...] mL inj As needed 01/14/2019 Acti ve goefbhpgtmj-vwrhidazm-WQVIWAF rine 0.25%-1%-1:200,000 injection 2-25 mL 2 - 25 mL inj As needed 01/14/2019 Active Active Problems No known active problems Social History Tobacco Use Types Packs/Day Years [...] your living situation today? [facility] 08/11/2023 Sex and [...] Mass Index - - Plan of Treatment Not on file
--- OUTSIDE RECORDS SUMMARY | 2023-10-17 14:06 | XMS_ITS | Continuity of Care Document ---
Author Name Unknown Address [address] [place] [address] Phone [phone] Organization [facility] Address [address] [place] [address] Care Team Providers Care Business Analyst Manager Name Role Phone MINOO DAN Primary Care Provider Assessment No assessment recorded. Plan of Treatment Reminders Order Date Submit Date Provider Last Modified By Organization Details Last Modified Time Details Appointments ESTABLISH ED 10 2023 01:50P Cora Rausch MD Not available Not available Not available Lab None recorded. Referral None recorded. Procedures None recorded. Surgeries None recorded. Imaging None recorded. Medication Orders None recorded. Patient TargetsNo targets recorded. Patient InstructionsNo instructions recorded. Reason for Referral None Reported. Procedures Surgical History Date Name Laterality Status Provider Name and Address Organization Details Recorded Time 3 UroCuff completed Sarah young, [facility] 08/12/2023 12:12:43 3 Bladder Scan completed Sarah Juan [facility] 08/12/2023 12:11:40 3 Bladder Scan completed Raquel Santillan null [facility] 05/21/2023 11:50:29 3 Bladder Scan completed Radha Maravilla [facility] 11/13/2022 11:54:43 2 Bladder Scan completed Radha Maravilla [facility] 08/05/2022 12:31:56 Imaging Results None recorded. Procedure [...] Not Available Not Available Not Available Vitals None Recorded Social History Question Answer Notes LastModified by Organizat ion Details LastModified Time Tobacco Smoking Status Former Smoker Radha young [facility] 08/05/2022 12:34:25 What Is Your Level Of [...] Response Sexually Transmitted Infection N Diabetes N Other N Bleeding Disorder N High Blood Pressure N Kidney Stones N High Cholesterol N GERD/Acid Reflux N Heart Disease N Cancer N Depression N Lung Disease N Immunizations Vaccine Type Date Status Provider Name and Address Organization Details Recorded Time zoster recombinant 09/20/2022 completed Radha young [facility] 08/20/2023 11:26:00 pneumococcal polysaccharide PPV23 02/13/2006 completed Radha young [facility] 08/20/2023 11:26:00 influenza, injectable, quadrivalent, preservative free 09/20/2009 completed Radha young [facility] 08/20/2023 11:26:00 influenza, injectable, quadrivalent 06/08/2020 tiffany young [facility] 05/21/2023 11:48:17 influenza, trivalent, adjuvanted 04/28/2017 tiffany young [facility] 05/21/2023 11:48:17 influenza, trivalent, adjuvanted 05/22/2018 completed Raquel young, [facility] 05/21/2023 11:48:17 [facility] 11:48:17 influenza, high-dose, quadrivalent 06/26/2021 completed Raquel Santillan null, [facility] 05/21/2023 11:48:18 influenza, high-dose, quadrivalent 07[facility]10[facility]2022 [facility] 11:48:18 COVID-19, mRNA, LNP-S, PF, 30 mcg/0.3 mL dose 06/14/2021 [facility] 11:48:18 Tdap 10/03/2014 [facility] 11:48:18 Novel [id number], all formulations 09/20/2009 [facility] 11:48:18 Pneumococcal conjugate PCV 13 10/06/2014 [facility] 11:48:18 zoster live 08/15/2010 [facility] 11:48:18 Influenza, high dose seasonal 05/21/2016 [facility] 11:48:18 Influenza, high dose seasonal 06/16/2015 [facility] 11:48:18 Influenza, high dose seasonal 06/17/2019 [facility] 11:48:18 Influenza, seasonal, injectable 05/16/2011 [facility] 11:48:18 Influenza, seasonal, injectable 06/17/2012 [facility] 11:48:18 Influenza, seasonal, injectable 06/24/2013 completed Raquel Santillan [facility] 05/21/2023 11:48:18 Influenza, seasonal, injectable, preservative free 05/16/2010 completed Raquel Santillan [facility] 05/21/2023 11:48:18 Td (adult), 2 Lf tetanus toxoid, preservative free, adsorbed 06/14/2005 [facility] 11:48:18 influenza, injectable, quadrivalent, preservative free 05/18/2014 [facility] 11:48:18 Past Encounters Encounter ID Performer Location Encounter Start Date Encounter Closed Date Diagnosis/Indication [id number] Sarah Juan [facility] [address] [place] [address] 08/12/2023 11:18:49 08/18/2023 15:34:14 Slowing of urinary stream Health Concerns Section Related Observation LastModified by Organization Detai ls LastModified Time None Recorded Concern Status LastModified by Organization Details LastModified Time None Recorded Payers Encounter Date Sequence Insurance Name Policy Number Policy Ortega Covered Member ID Ortega Member ID Guarantor Name 08/12/2023 1 [place] [employer] Quinton De Anda [id number] Quinton De Anda 08/12/2023 2 [place] [id number] Quinton De Anda [id number] Quinton De Anda Notes None Recorded
== END 2023-10-17 14:03 | disposition home or self-care (01) ==
LOC: INJ CL 14:02
PROVIDERS: PCP Internal Medicine; Visit Provider Family Medicine
DX: M51.36 Other intervertebral disc degeneration, lumbar region (principal); M54.16 Radiculopathy, lumbar region
CPT/HCPCS: 62323; J0702; Q9966

== ENCOUNTER 2023-11-24 08:14 | Outpatient (CLI) | payer MEDICARE, BC, SELFPAY | END 2023-11-24 08:15 | disposition home or self-care (01) | LOC: NFLDREF 11-26 06:13 | PROVIDERS: PCP Internal Medicine; Referring Provider Internal Medicine; Visit Provider Internal Medicine | DX: E78.5 Hyperlipidemia, unspecified (principal); I10 Essential (primary) hypertension | CPT/HCPCS: 80048; 80061 ==

== ENCOUNTER 2023-12-29 07:48 | Outpatient (CLI) | payer MEDICARE, BC, SELFPAY ==
--- OUTSIDE RECORDS SUMMARY | 2023-12-29 07:51 | XMS_ITS ---
Author Name Unknown Organization [facility] Address [address] [place] [address] Care Team Providers Care Mud Mixer Helper Name Role Phone Unavailable Unavailable Unavailable Surgery Details Not on file Complications Check Surgery Details section. Procedure Estimated Blood Loss Check Surgery Details section. Procedure Findings Check Surgery Details section. Procedure Specimens Taken Check Surgery Details section.
--- OUTSIDE RECORDS SUMMARY | 2023-12-29 07:51 | XMS_ITS | Continuity of Care Document ---
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 It does not include entries that were removed or entered in error. Problem Status Onset Date Problem Type Date of Resolution Comments Source Allergic Rhinitis ([facility] [id number]) Active Condition [facility] Erectile Dysfunction ([facility] [id number]) Active Condition [facility] HTN - Hypertension ([facility] [id number]) Active Condition [facility] Hyperlipidemia ([facility] [id number]) Active Condition [facility] Nocturia due to benign prostatic hypertrophy Active Condition [facility] Tear of left rotator cuff Active Condition [facility] Diagnosis: ICD-10-CM Z00.01 Encounter for general adult medical exam w abnormal findings Active Diagnosis [facility] Diagnosis: ICD-10-CM Z00.00 Encntr for general adult medical exam w/o abnormal findings Active Diagnosis [facility] Medications Combined list of outpatient medications from Department [facility] and [facility] facilities.Medications provided include 1) outpatient medications from the last 15 months, and 2) patient-reported medications. Medication Details Route Status Patient Instructions Prescription Expires Prescription Number Last Dispense Date Ordering Provider Order Date Order Qty Source CALCIUM POLYCARBOPH IL TAB TAKE ACTIVE TRAUT,HERACLIO HARD L 2020 [facility] CETIRIZINE TAB TAKE ACTIVE TRAUT,HERACLIO HARD L 2020 [facility] DOCUSATE NA 100MG CAP TAKE 2 CAPSULES BY MOUTH PRN ORALLY ACTIVE TRAUT,HERACLIO HARD L 2020 [facility] FINASTERIDE 5MG TAB TAKE ONE TABLET BY MOUTH EVERY DAY ORALLY ACTIVE TRAUT,HERACLIO HARD L 2020 [facility] FLUTICASONE PROPIONATE 50MCG/SPRAY SOLN,NASAL, 16GM SPRAY 2 SPRAYS IN EACH NOSTRIL EVERY DAY NEEDED NASAL ACTIVE TRAUT,HERACLIO HARD L 2019 [facility] HYDROCHLORO THIAZIDE 25MG TAB TAKE ONE TABLET BY MOUTH EVERY DAY ORALLY ACTIVE TRAUT,HERACLIO HARD L 2019 [facility] LIDOCAINE 5% PATCH APPLY 1 PATCH TOPICALL Y EVERY DAY NEEDED FOR PAIN WEAR FOR 12 HOURS AND THEN REMOVE TOPICA LLY ACTIVE 09/17/2024 [id number] ANDREW HUERTA [address] [facility] LIDOCAINE 5% PATCH APPLY 1 PATCH TOPICALL Y EVERY DAY NEEDED FOR PAIN WEAR FOR 12 HOURS AND THEN REMOVE TOPICA LLY DISCONT INUED 09/21/2023 [id number] ZULAY RANDALL [address] [facility] METHYLCELLU LOSE TAB TAKE BY MOUTH ORALLY ACTIVE TRAUT,HERACLIO HARD L 2020 [facility] MULTIVITS W/MINERALS( NO VIT K) TAB TAKE ACTIVE TRAUT,HERACLIO HARD L 2020 [facility] PSYLLIUM PWDR,ORAL TAKE 1 TABLESPO ON BY MOUTH EVERY DAY MIXED IN JUICE OR WATER DIRECTED TO HELP REGULATE STOOLS TO HELP HEMORRHO IDS. ORALLY ACTIVE 09/17/2024 [id number] ANDREW HUERTA [address] [facility] TADALAFIL TAB TAKE 5MG BY MOUTH PRN ORALLY ACTIVE TRAUT,HERACLIO HARD L 2020 [facility] TAMSULOSIN HCL 0.4MG CAP TAKE 1 CAPSULE BY MOUTH AT BEDTIME ORALLY ACTIVE TRAUT,HERACLIO HARD L 2020 [facility] Immunizations Combined list of available immunizations from the Department of Defense and Veterans Affairs facilities. Immunization Series Date Given Administered By Site Reaction Lot Number CVX Code Drug Dictating Machine Typist Status Comments Source ZOSTER RECOMBINANT 2 2022 YAZMIN DE OLIVEIRA LEFT DELTO ID [id number] 187 complet ed @@ ENTER DILUENT LOT# HERE [id number] [facility] INFLUENZA, HIGH-DOSE, QUADRIVALENT [address] [facility] INFLUENZA, UNSPECIFIED FORMULATION [address] [facility] INFLUENZA, HIGH-DOSE, QUADRIVALENT [address] [facility] COVID-19 (PFIZER), MRNA, LNP-S, PF, 30 MCG/0.3 ML DOSE [address] [facility] COVID-19 (PFIZER), MRNA, LNP-S, PF, 30 MCG/0.3 ML DOSE 2 2020 208 complet ed PFR; [id number]; 1 [facility] COVID-19 (PFIZER), MRNA, LNP-S, PF, 30 MCG/0.3 ML DOSE 1 2020 208 complet ed PFR; [id number]; 1 [facility] ZOSTER RECOMBINANT [address] [facility] INFLUENZA, INJECTABLE, QUADRIVALENT [address] [facility] INFLUENZA, UNSPECIFIED FORMULATION [address] [facility] INFLUENZA, HIGH DOSE SEASONAL [address] [facility] INFLUENZA, HIGH DOSE SEASONAL 2018 135 complet ed [facility] PNEUMOCOCCAL CONJUGATE PCV 13 2018 133 complet ed [facility] INFLUENZA, TRIVALENT, ADJUVANTED [address] [facility] INFLUENZA, TRIVALENT, ADJUVANTED [address] [facility] INFLUENZA, HIGH DOSE SEASONAL [address] [facility] INFLUENZA, HIGH DOSE SEASONAL [address] [facility] PNEUMOCOCCAL CONJUGATE PCV 13 [address] [facility] TDAP [address] [facility] INFLUENZA, INJECTABLE, QUADRIVALENT, PRESERVATIVE FREE [address] [facility] INFLUENZA, SEASONAL, INJECTABLE [address] [facility] INFLUENZA, SEASONAL, INJECTABLE [address] [facility] INFLUENZA, SEASONAL, INJECTABLE [address] [facility] ZOSTER LIVE [address] [facility] INFLUENZA, SEASONAL, INJECTABLE, PRESERVATIVE FREE [address] [facility] INFLUENZA, INJECTABLE, QUADRIVALENT, PRESERVATIVE FREE [address] [facility] NOVEL INFLUENZA-H1N 1-09, ALL FORMULATIONS 2009 128 complet [facility] PNEUMOCOCCAL POLYSACCHARID E PPV23 [address] [facility] TD (ADULT), 2 LF TETANUS TOXOID, PRESERVATIVE FREE, ADSORBED [address] [facility] INFLUENZA (HISTORICAL) [address] [facility] PNEUMOCOCCAL, UNSPECIFIED FORMULATION 2003 NONE [address] [facility] INFLUENZA (HISTORICAL) [address] [facility] TD(ADULT) UNSPECIFIED FORMULATION 1998 139 complet [facility] Results Combined list of recent chemistry, hematology [...] Sep 20, 2022 08:34 AM Reporting Lab: [facility] [address] Performing Lab: [facility] [address] [facility] BASIC METABOLIC PANEL+MG UREA NITROGEN [MASS/VOLUM E] IN SERUM OR PLASMA 19 8 - 26 09/17 Specimen Type: PLASMA No comment entered. Ordering Provider: CRISTIANA RANDALL Report Released Date/Time: Sep 20, 2022 08:34 AM Reporting Lab: [facility] [address] Performing Lab: [facility] [address] [facility] BASIC METABOLIC PANEL+MG GLUCOSE [MASS/VOLUM E] IN SERUM OR PLASMA 101 70 - 100 09/17 H Specimen Type: PLASMA No comment entered. Ordering Provider: CRISTIANA RANDALL Report Released Date/Time: Sep 20, 2022 08:34 AM Reporting Lab: [facility] [address] Performing Lab: [facility] [address] [place] [facility] BASIC METABOLIC PANEL+MG SODIUM [MOLES/VOLU ME] IN SERUM OR PLASMA 138 136 - 145 09/17 Specimen Type: PLASMA No comment entered. Ordering Provider: CIRSTIANA RANDALL Report Released Date/Time: Sep 20, 2022 08:34 AM Reporting Lab: [facility] [address] Performing Lab: [facility] [address] [place] [facility] BASIC METABOLIC PANEL+MG POTASSIUM [MOLES/VOLU ME] IN SERUM OR PLASMA 4.1 3.5 - 5.1 09/17 Specimen Type: PLASMA No comment entered. Ordering Provider: CRISTIANA RANDALL Report Released Date/Time: Sep 20, 2022 08:34 AM Reporting Lab: [facility] [address] Performing Lab: [facility] [address] [place] [facility] BASIC METABOLIC PANEL+MG CHLORIDE [MOLES/VOLU ME] IN SERUM OR PLASMA 102 98 - 107 09/17 Specimen Type: PLASMA No comment entered. Ordering Provider: CRISTIANA RANDALL Report Released Date/Time: Sep 20, 2022 08:34 AM Reporting Lab: [facility] [address] Performing Lab: [facility] [address] [place] [facility] BASIC METABOLIC PANEL+MG CARBON DIOXIDE, TOTAL [MOLES/VOLU ME] IN SERUM OR PLASMA 29 22 - 29 09/17 Specimen Type: PLASMA No comment entered. Ordering Provider: CRISTIANA RANDALL Report Released Date/Time: Sep 20, 2022 08:34 AM Reporting Lab: [facility] [address] Performing Lab: [facility] [address] [place] [facility] BASIC METABOLIC PANEL+MG CALCIUM [MASS/VOLUM E] IN SERUM OR PLASMA 9.4 8.4 - 10.2 09/17 Specimen Type: PLASMA No comment entered. Ordering Provider: CRISTIANA RANDALL Report Released Date/Time: Sep 20, 2022 08:34 AM Reporting Lab: [facility] [address] Performing Lab: [facility] [address] [place] [facility] BASIC METABOLIC PANEL+MG MAGNESIUM [MASS/VOLUM E] IN SERUM OR PLASMA 2.2 1.6 - 2.6 09/17 Specimen Type: PLASMA No comment entered. Ordering Provider: CRISTIANA RANDALL Report Released Date/Time: Sep 20, 2022 08:34 AM Reporting Lab: [facility] [address] Performing Lab: [facility] [address] [place] [facility] BASIC METABOLIC PANEL+MG ANION GAP IN SERUM OR PLASMA 7 5 - 15 09/17 Specimen Type: PLASMA No comment entered. Ordering Provider: CRISTIANA RANDALL Report Released Date/Time: Sep 20, 2022 08:34 AM Reporting Lab: [facility] [address] Performing Lab: [facility] [address] [place] [facility] BASIC METABOLIC PANEL+MG GLOMERULAR FILTRATION RATE/1.73 SQ M.PREDICTED [VOLUME RATE/AREA] IN SERUM, PLASMA OR BLOOD BY CREATININE- BASED FORMULA (CKD-EPI 2020) 84 60 09/17 Specimen Type: PLASMA No comment entered. Ordering Provider: CRISTIANA RANDALL Report Released Date/Time: Sep 20, 2022 08:34 AM Reporting Lab: [facility] [address] Performing Lab: [facility] [address] [place] [facility] BASIC METABOLIC PANEL+MG CREATININE [MASS/VOLUM E] IN SERUM OR PLASMA 0.9 0.7 - 1.2 09/20 Specimen Type: PLASMA No comment entered. Ordering Provider: CRISTIANA RANDALL Report Released Date/Time: Sep 20, 2022 08:34 AM Reporting Lab: [facility] [address] Performing Lab: [facility] [address] [place] [facility] BASIC METABOLIC PANEL+MG UREA NITROGEN [MASS/VOLUM E] IN SERUM OR PLASMA 14 8 - 26 09/20 Specimen Type: PLASMA No comment entered. Ordering Provider: CRISTIANA RANDALL Report Released Date/Time: Sep 20, 2022 08:34 AM Reporting Lab: [facility] [address] Performing Lab: [facility] [address] [place] [facility] BASIC METABOLIC PANEL+MG GLUCOSE [MASS/VOLUM E] IN SERUM OR PLASMA 105 70 - 100 09/20 H Specimen Type: PLASMA No comment entered. Ordering Provider: CRISTIANA RANDALL Report Released Date/Time: Sep 20, 2022 08:34 AM Reporting Lab: [facility] [address] Performing Lab: [facility] [address] [place] [facility] BASIC METABOLIC PANEL+MG SODIUM [MOLES/VOLU ME] IN SERUM OR PLASMA 137 136 - 145 09/20 Specimen Type: PLASMA No comment entered. Ordering Provider: CRISTIANA RANDALL Report Released Date/Time: Sep 20, 2022 08:34 AM Reporting Lab: [facility] [address] Performing Lab: [facility] [address] [place] [facility] BASIC METABOLIC PANEL+MG POTASSIUM [MOLES/VOLU ME] IN SERUM OR PLASMA 4.6 3.5 - 5.1 09/20 Specimen Type: PLASMA No comment entered. Ordering Provider: CRISTIANA RANDALL Report Released Date/Time: Sep 20, 2022 08:34 AM Reporting Lab: [facility] [address] Performing Lab: [facility] [address] [place] [facility] BASIC METABOLIC PANEL+MG CHLORIDE [MOLES/VOLU ME] IN SERUM OR PLASMA 101 98 - 107 09/20 Specimen Type: PLASMA No comment entered. Ordering Provider: CRISTIANA RANDALL Report Released Date/Time: Sep 20, 2022 08:34 AM Reporting Lab: [facility] [address] Performing Lab: [facility] [address] [place] [facility] BASIC METABOLIC PANEL+MG CARBON DIOXIDE, TOTAL [MOLES/VOLU ME] IN SERUM OR PLASMA 31 22 - 29 09/20 H Specimen Type: PLASMA No comment entered. Ordering Provider: CRISTIANA RANDALL Report Released Date/Time: Sep 20, 2022 08:34 AM Reporting Lab: [facility] [address] Performing Lab: [facility] [address] [place] [facility] BASIC METABOLIC PANEL+MG CALCIUM [MASS/VOLUM E] IN SERUM OR PLASMA 9.7 8.4 - 10.2 09/20 Specimen Type: PLASMA No comment entered. Ordering Provider: CRISTIANA RANDALL Report Released Date/Time: Sep 20, 2022 08:34 AM Reporting Lab: [facility] [address] Performing Lab: [facility] [address] [place] [facility] BASIC METABOLIC PANEL+MG MAGNESIUM [MASS/VOLUM E] IN SERUM OR PLASMA 2.2 1.6 - 2.6 09/20 Specimen Type: PLASMA No comment entered. Ordering Provider: CRISTIANA RANDALL Report Released Date/Time: Sep 20, 2022 08:34 AM Reporting Lab: [facility] [address] Performing Lab: [facility] [address] [place] [facility] BASIC METABOLIC PANEL+MG ANION GAP IN SERUM OR PLASMA 5 5 - 15 09/20 Specimen Type: PLASMA No comment entered. Ordering Provider: CRISTIANA RANDALL Report Released Date/Time: Sep 20, 2022 08:34 AM Reporting Lab: [facility] [address] Performing Lab: [facility] [address] [place] [facility] BASIC METABOLIC PANEL+MG GLOMERULAR FILTRATION RATE/1.73 SQ M.PREDICTED [VOLUME RATE/AREA] IN SERUM, PLASMA OR BLOOD BY CREATININE- BASED FORMULA (CKD-EPI) 84 60 09/20 Specimen Type: PLASMA No comment entered. Ordering Provider: CRISTIANA RANDALL Report Released Date/Time: Sep 20, 2022 08:34 AM Reporting Lab: [facility] [address] Performing Lab: [facility] [address] [place] [facility] HEMOGLOBI N A1C HEMOGLOBIN A1C/HEMOGLO BIN.TOTAL IN [...] Sep 20, 2022 08:34 AM Reporting Lab: [facility] [address] Performing Lab: [facility] [address] [facility] Vital Signs Combined list of inpatient and outpatient Vital Signs from Department of Defense and Veterans [facility], ranging from 12 months to all on record, depending upon the facility. Vital Sign Value Date Comments Source Encounters Combined list of: 1) Encounters from Department of Veterans Affairs facilities going back up to thelast 18 months. 2) Encounters from the Department of Defense facilities going back up to 280 months. Location Location Details Encounter Type Encounter Number Reason For Visit Attending Provider ADM Date DC Date Status Disposition Source [facility] Outpatient Encounter [id number] 07/10 [facility] [place] [facility] Outpatient Encounter [id number] [facility] IMMUNIZATI ON ADMIN [id number] Diagnos is: ICD-10- CM Z00.00 Encntr for general adult medical exam w/o abnorma l finding s
RAYMOND RANDALL 09/20 [facility] [place] [facility] Outpatient Encounter [id number] 09/30 [facility] [place] [facility] Outpatient Encounter [id number] 09/16 [facility] OFFICE O/P EST LOW 20 MIN [id number] Diagnos is: ICD-10- CM Z00.01 Encount er for general adult medical exam w abnorma l finding s
Maximiliano HUERTA 09/17 TORSTEN HOANG [facility] Social History Combined list of available smoking, tobacco, and other social history from Department of Defense and Veterans Affairs facilities. Social History Type Response Date Comment Sourc e Tobacco smoking status NHIS VA-TOBACCO FORMER USER 09/16/2023 SHEA MUNIZ [facility] History of tobacco use MD-TOBACCO QUIT 1 5 YRS OR MORE 09/16/2023 [facility] History of tobacco use MD-TOBACCO FORMER USER 09/20/2022 [facility] History of tobacco use MD-TOBACCO FORMER USER 04/02/2021 [facility] History of tobacco use MD-TOBACCO QUIT 1 5 YRS OR MORE 08/16/2019 [facility] Advance Directives List of completed, amended, or rescinded Advance Directives on record at Department of Veterans Affairs facilities. An actual copy of the Directive is not included. Date Advance Directive Provider Source 04/02/2004 ADVANCE DIRECTIVE ABRAN SESAY [facility]
--- OUTSIDE RECORDS SUMMARY | 2023-12-29 07:51 | XMS_ITS | Clinical Summary ---
Author Name Unknown Organization [facility] Address [address] [place] [address] Care Team Providers Care Manager Medicare Name Role Phone Unavailable Primary Care Provider Unavailabl e Source Comments Patient records contain information from all sites at [facility]. For routine questions regarding patient records, call [phone] during business hours, M-F 8:00 AM - 5:00 PM Central Time. Record requests for emergency care only can be directed to [phone] at any time.[facility] Allergies No known active allergies Medications Medication Sig Dispensed Refills Start Date End Date Status FOLIC ACID/MULTIVIT-MIN/ITZEL TEIN (CENTRUM SILVER ORAL) Take by mouth daily. 06/15/2009 Acti ve hydroCHLOROthiazide (for_HYDRODIURIL) 25 mg tablet Take by mouth daily. 06/15/2009 Acti ve hydrocortisone (for_HYTONE) 2.5 % cream Apply topically as needed. Once to twice daily to dry spot on leg 07/30/2017 Active [address] tablet Take 81 mg by mouth daily. Active glucosamine-chondroi tin (GLUCOSAMINE-CHONDRO ITIN) 500-400 mg per capsule Take 1 capsule by mouth daily. Active cetirizine HCl (CETIRIZINE ORAL) Take by mouth daily. UNSURE OF DOSE 04/05/2022 Active CHOLECALCIFEROL, VITAMIN D3, ORAL Take 5,000 Units by mouth daily. 04/05/2022 Active fexofenadine (GERARDO) 180 mg tablet Take 180 mg by mouth daily. 12/22/2013 Active DIPHENHYDRAMINE HCL ORAL Take 25 mg by mouth at bedtime. 05/03/2022 Active DOCUSATE CALCIUM ORAL Take 1 mg by mouth 2 (two) times a day. 04/05/2022 Active glucosamine/msm/judith droitin A (GLUCOSAMINE PSW-GNL-UQPNUUTQED ORAL) Take 2 tablets by mouth 2 (two) times a day. 04/05/2022 Active finasteride (PROSCAR) 5 mg tablet Take 5 mg by mouth daily. 04/05/2022 Active FLUTICASONE PROPIONATE NASAL Administer 1 spray into nostril(s) 2 (two) times a day. 11/11/2022 Active METHYLCELLULOSE, LAXATIVE, ORAL Take 1 tablet by mouth daily. 04/05/2022 Active multivit-minerals/FA /lycopene (ONE-A-DAY MEN'S 50 PLUS ORAL) Take 1 tablet by mouth daily. 04/05/2022 Active psyllium (METAMUCIL) 0.52 gram capsule Take 0.52 g by mouth 2 (two) times a day. 04/05/2022 Active simvastatin (ZOCOR) 20 mg tablet Take 20 mg by mouth at bedtime. 11/11/2022 Active tadalafiL (CIALIS) 5 mg tablet Take 5 mg by mouth daily as needed. 05/03/2022 Active tamsulosin 0.4 mg oral capsule Take 0.4 mg by mouth daily. 10/03/2022 Active Hospital, Clinic, or Other Facility Administered Medication Ordered Dose Route Frequency Start Date End Date Status lidocaine-EPINEPHrine 1 %-1:100,000 injection 1-3 mL (XYLOCAINE W/EPI) 1 - 3 mL Ifil As needed 01/19/2018 Active lidocaine-EPINEPHrine 1%-1:200,000 injection 2-50 mL (XYLOCAINE W/EPI) 2 - 50 mL inj As needed 01/14/2019 Acti ve kkttbhgpfpa-rhtijwlfs-BYVJCCK rine 0.25%-1%-1:200,000 injection 2-25 mL 2 - [...] your living situation today? I have a [facility] place to live 08/11/2023 Sex and [...] Fun ction Test) 04/25/2022 04/25/2021 COVID-19 Vaccine (2022-2 4 season) 2023 06/14/2021, 10/23/2020, 10/02/2020 Influenza Vaccine (#1) 2023 2, 06/26/2021, 06/08/2020, Additional history exists Depression Screening (Annual PHQ-2) 09/01/2023 Fall Risk Screen (Annual) 09/01/2023 DTaP,Tdap,and Td Vaccines (2 - Td or Tdap) 10/03/2024 10/03/2014, 06/14/2005, 03/01/1999 Pneumococcal vaccine (65+ years) Completed 06/01/2019, 10/06/2014, 02/13/2006, Additional history exists Zoster Vaccines Completed 09/20/2022, 09/01, 08/15/2010 Procedures Procedure Name Priority Date/Time Associated Diagnosis Comments CREATININE WITH EGFR, S/P Routine 04/25/2021 2:52 PM CDT Dermatitis from Last 3 Months or Most Recently Relevant to Health Maintenance Results * Creatinine with Estimated GFR (04/25/2021 2:52 PM CDT) Creatinine 0.84 0.74 - 1.35 mg/dL 04/25/2021 3:49 PM CDT DTL eGFR-Non Black/ 82 >=60 mL/min/BSA 04/25/2021 3:49 PM CDT DTL Comment: ----ADDITIONAL INFORMATION---- Estimated GFR calculated using the 2009 CKD_EPI creatinine equation. eGFR-Black/Afric an Guamanian >90 >=60 mL/min/BSA 04/25/2021 3:49 PM CDT DTL Comment: ----ADDITIONAL INFORMATION---- Estimated GFR calculated using the 2009 CKD_EPI creatinine equation. Blood (Blood, Venous) 04/25/2021 2:52 PM CDT 04/25/2021 3:18 PM CDT Ashley Mckeon M.D. LAB BLOOD ADD-ON [facility] [place] [facility] [address] [place] [address], [place] DTL [facility] [address] [place] [address] from Last 3 Months or Most Recently Relevant to Health Maintenance
--- OUTSIDE RECORDS SUMMARY | 2023-12-29 07:51 | XMS_ITS | Clinical Summary ---
Author Name Unknown Organization [facility] Address [place], [place] [address] Care Team Providers Care Production Mechanic Tin Cans Name Role Phone Ellen Hamilton MD Primary Care Provider [phone] Allergies No known active allergies Medications Medication [...] per actuation) nasal solution (FLONASE) Inhale 1 [place] into both nostrils once daily. 1 Bottle 0 11/18/2014 Active simvastatin (ZOCOR) 20 mg tablet 03/06/2020 Active tamsulosin (FLOMAX) 0.4 mg capsule 04/18/2020 Active tadalafiL (CIALIS) 5 mg tabletIndications:Ere [...] Encounters Date Type Department Care Team Description 10/17/2023 2:40 PM INTERCEPTOR OPERATOR Office Visit [facility] [address] [facility] [place] [place] [address] Donn Montanez MD Procedure (L5-S1 ILESI) 10/06/2023 1:40 PM INTERCEPTOR OPERATOR Office Visit [facility] [address] [place] [address] Donn Montanez MD Musculoskeletal Problem (Follow up [...] Comments Blood Pressure 146/76 10/06/2023 1:45 PM INTERCEPTOR OPERATOR Pulse 73 10/06/2023 1:45 PM INTERCEPTOR OPERATOR Temperature 36.5 ??C (97.7 ??F) 10/06/2023 1:45 PM CS T Respiratory Rate 16 09/20/2020 11:4 1 AM INTERCEPTOR OPERATOR Oxygen Saturation 96% 10/06/2023 1:45 PM INTERCEPTOR OPERATOR Inhaled Oxygen Concentration - - Weight 79.3 [...] 01/21/2007, 06/14/2005 COVID-19 vaccine series (2 - 2022-24 season) 2023 06/14/2021 Influenza for age 65+ 05/02/2024 05/22/2018 , 04/28/2017, 05/21/2016, Additional history exists Procedures Procedure Name Priority Date/Time Associated Diagnosis Comments AMB EPIDURAL STEROID INJECTION Routine 10/17/2023 12:00 AM INTERCEPTOR OPERATOR Lumbar radiculopathy Lumbar disc herniation DDD (degenerative disc disease), lumbar from Last 3 Months Results * AMB EPIDURAL STEROID INJECTION (10/17/2023 12:00 AM INTERCEPTOR OPERATOR) Donn Montanez MD NEUROLOGY ORD from Last 3 Months Care Teams Production Mechanic Tin Cans Relationship Specialty Start Date End Date Ellen Hamilton MD [address] [place] [address] PCP - General Internal Medicine 10/08/13
--- OUTSIDE RECORDS SUMMARY | 2023-12-29 07:51 | XMS_ITS | Data Portability ---
Author Name Unknown Address [address] [place] [address] Phone [phone] Organization [facility], [facility] Address [address] [facility] [address] [place] [address] Care Team Providers Care Health Lead Name Role Phone ELLEN DAN Primary Care [...] bladder emptying. [email or web address] Not available 08/19/2023 13:18:52 11/27/2023 11/27/2023 83-year-old gentleman with erectile dysfunction, chronic nocturia, chronic weakened urinary stream, and chronic incomplete bladder emptying. rstromquist Not available 11/25/2023 16:43:48 Plan of Treatment Reminders Order Date Submit Date Provider Last Modified By Organization Details Last Modified Time Details Appointments ESTABLISH ED 10 2023 01:50P M Alexi Rausch MD Not available Not available Not available Lab None recorded. Referral None recorded. Procedures None recorded. Surgeries None recorded. Imaging None recorded. Medication Orders sildenafi l 100 mg tablet 2023 024 [facility], [address] [place] [address], [id number], 11/27/2023 11:59:51 tadalafil 10 mg tablet 2023 024 [facility], [address] [place] [address], [address], 11/27/2023 11:59:53 betametha sone dipropion ate 0.05 % topical cream [address] [facility], [address] [place] [address], [address], 11/27/2023 11:44:57 finasteri de 5 mg tablet 2022 023 [facility], [address] [place] [address], [address], 05/21/2023 12:01:22 tamsulosi n 0.4 mg capsule 2022 023 [facility], [address] [place] [address], [place], [address], 05/21/2023 12:01:21 sildenafi l 100 mg tablet 2022 023 [facility], [address] [place] [address], [address], 11/13/2022 12:12:11 tadalafil 5 mg tablet 2022 023 [facility], [address] [place] [address], [address], 11/13/2022 12:12:12 tadalafil 5 mg tablet 2021 022 [facility], [address] [place], [address], 08/05/2022 16:00:28 sildenafi l 100 mg tablet 2021 [facility], [address] [place], [address], 08/05/2022 16:00:22 Patient TargetsNo targets recorded. Patient Instructions Encounter Date Encounter Id Patient Instructions Last Modified By Organization Details Last Modified Time 05/21/2023 [id number] He would like to proceed with manual [...] Range Abnormal Flag LastModifiedBy Organization Detail LastModifiedTime 12/09/1912/06/2020 measu remen t of post- voidi ng resid ual urine and/o r bladd er capac ity (PROC ) No observ ation record ed. Not Available 08/05/2022 12:48:54 02/14/2002/07/2021 measu remen t of post- voidi ng resid ual urine and/o r bladd er capac ity (PROC ) No observ ation record ed. Not Available 08/05/2022 12:48:54 05/17/2005/09/2021 measu remen t of post- voidi ng resid ual urine and/o r bladd er capac ity (PROC ) No observ ation record ed. Not Available 08/05/2022 12:48:54 11/20/1911/13/2022 bladd er scan (PROC ) No observ ation record ed. Not Available 05/21/2023 13:48:17 Result Notes None recorded. Procedures Surgical History Date Name Laterality Status Provider Name and Address Organization Details Recorded Time 4 COMPLEX VISIT completed Alexi Rausch MD [address] [facility],[address], [place], [address], [facility] 11/27/2023 23:46:08 3 UroCuff completed Sarah Juan null, [facility] 08/12/2023 12:12:43 3 Bladder Scan completed Sarah Juan null, [facility] 08/12/2023 12:11:40 3 Bladder Scan completed Raquel Santillan null, [facility] 05/21/2023 11:50:29 3 Bladder Scan completed Radha Maravilla null, [facility] 11/13/2022 11:54:43 2 Bladder Scan completed Radha Maravilla null, [facility] 08/05/2022 12:31:56 Imaging Results Imaging Date Name Status LastModified by Organiz ation Details LastModified Time 12/06/2020 measurement of post-voiding residual urine and/or bladder capacity (PROC) completed [employer] Information not available 08/05/2022 12:48:54 02/07/2021 measurement of post-voiding residual urine and/or bladder capacity (PROC) completed [employer] Information not available 08/05/2022 12:48:54 05/09/2021 measurement of post-voiding residual urine and/or bladder capacity (PROC) completed [employer] Information not available 08/05/2022 12:48:54 11/13/2022 bladder scan (PROC) completed [employer] Information not available 05/21/2023 13:48:17 Procedure Notes [...] tablet TAKE 1 TABLET BY MOUTH ONCE DAILY, TO TAKE IN COMBINATI ON WITH DAILY TADALAFIL active Not Available Not Available No t Available oxycodone-a cetaminophe n 5 mg-325 mg tablet TAKE ONE TABLET BY MOUTH EVERY 4-8 HOURS NEEDED FOR PAIN 11/13 completed Not Available Not Available Not Available tamsulosin 0.4 mg capsule TAKE 1 CAPSULE BY MOUTH DAILY. active Not Available Not Available No t Available cephalexin 500 mg capsule TAKE ONE CAPSULE BY MOUTH FOUR TIMES DAY 08/05 completed Not Available Not Available Not Available simvastatin 20 mg tablet TAKE ONE TABLET BY MOUTH AT BEDTIME active Not Available Not Available No t Available betamethaso ne dipropionat e 0.05 % topical cream 11/26 completed Not Available Not Available Not Available ammonium [...] Available Not Available No t Available tadalafil 10 mg tablet TAKE 1 TABLET BY MOUTH ONCE DAILY TAKE IN COMBINATI ON WITH NEEDED SILDENAFI L active Not Available Not Available [...] Address Organization Details Last Updated DateTime 08/05/2022 96403.66 g 24.4 kg/m2 180.34 cm Radha Maravilla [facility] 08/05/2022 12:32:39 Date Recorded Body height Body mass index (BMI) Body weight Provider Name and Address Organization Details Last Updated DateTime 11/13/2022 180.34 cm 25.1 kg/m2 52872.63 g Radha Maravilla [facility] 11/13/2022 11:53:36 Date Recorded Body height Body mass index (BMI) Body weight Provider Name and Address Organization Details Last Updated DateTime 05/21/2023 180.34 cm 24.4 kg/m2 69207.66 g Raquel Santillan [facility] 05/21/2023 11:48:12 Date Recorded Body height Body mass index (BMI) Body weight Provider Name and Address Organization Details Last Updated DateTime 08/20/2023 180.34 cm 24.4 kg/m2 04068.66 g Radha Maravilla [facility] 08/20/2023 11:25:54 Date Recorded Body height Body mass index (BMI) Body weight Provider Name and Address Organization Details Last Updated DateTime 11/27/2023 180.34 cm 25 kg/m2 05191.03 g Alexi Rausch MD [address] [facility],[address], [place], [address], [facility] 11/27/2023 11:44:31 Social History Question Answer Notes LastModified by Organizat ion Details LastModified Time Tobacco Smoking Status Former Smoker Radha young [facility] 08/05/2022 12:34:25 What Is Your Level Of Alcohol Consumption? Occasional Information not available 05/21/2023 What Is Your Level Of Caffeine Consumption? Moderate Information not available 05/21/2023 When Did You Quit Smoking? 14+yearsotf reyesvalnetin 1984 Information not available 08/05/2022 What Was The Date Of Your Most Recent Tobacco Screening? 11/27/2023 Information not available 11/27/2023 Has Tobacco Cessation Counseling Been Provided? No [...] Time zoster recombinant 09/20/2022 completed Radha young [facility] 08/20/2023 11:26:00 pneumococcal polysaccharide PPV23 02/13/2006 [facility] 11:26:00 influenza, injectable, quadrivalent, preservative free 09/20/2009 [facility] 11:26:00 influenza, injectable, quadrivalent 06/08/2020 completed Raquel young [facility] 05/21/2023 11:48:17 influenza, trivalent, adjuvanted 04/28/2017 completed Raquel young [facility] 05/21/2023 11:48:17 influenza, trivalent, adjuvanted 05/22/2018 completed Raquel young [facility] 05/21/2023 11:48:17 zoster recombinant 09/18/2020 completed Raquel young [facility] 05/21/2023 11:48:17 influenza, high-dose, quadrivalent 06/26/2021 completed Raquel young [facility] 05/21/2023 11:48:18 influenza, high-dose, quadrivalent 07/10/2022 completed Raquel young [facility] 05/21/2023 11:48:18 COVID-19, mRNA, LNP-S, PF, 30 mcg/0.3 mL dose 06/14/2021 [facility] 11:48:18 Tdap 10/03/2014 [facility] 11:48:18 Novel Abbmljjfb-[id number], all formulations 09/20/2009 [facility] 11:48:18 Pneumococcal conjugate PCV 13 10/06/2014 [facility] 11:48:18 zoster live 08/15/2010 [facility] 11:48:18 Influenza, high dose seasonal 05/21/2016 [facility] 11:48:18 Influenza, high dose seasonal 06/16/2015 [facility] 11:48:18 Influenza, high dose seasonal 06/17/2019 [facility] 11:48:18 Influenza, seasonal, injectable 05/16/2011 [facility] 11:48:18 Influenza, seasonal, injectable 06/17/2012 completed Raquel young, [facility] 05/21/2023 11:48:18 Influenza, seasonal, injectable 06/24/2013 [facility] 11:48:18 Influenza, seasonal, injectable, preservative free 05/16/2010 [facility] 11:48:18 Td (adult), 2 Lf tetanus toxoid, preservative free, adsorbed 06/14/2005 [facility] 11:48:18 influenza, injectable, quadrivalent, preservative free 05/18/2014 completed [facility] 05/21/2023 11:48:18 Past Encounters Encounter ID Performer Location Encounter Start Date Encounter Closed Date Diagnosis/Indication Diagnosis SNOMED-CT Code [id number] MD [facility]ISON [facility] [address] [place] [address] 08/05/2022 12:05:56 08/07/2022 09:18:29 Primary erectile dysfunction 732066654 Nocturia 193590654 Slowing of urinary stream 47734350 Incomplete emptying of bladder 090984247 [id number] MD [place] [address] [place] [address] 11/13/2022 11:45:39 11/15/2022 11:07:06 Primary erectile dysfunction 474652596 Slowing of urinary stream 60898388 Incomplete emptying of bladder 318259182 Nocturia 667565710 [id number] MD [place] [address] [place] [address] 05/21/2023 11:21:15 05/28/2023 21:22:36 Primary erectile dysfunction 394888004 Slowing of urinary stream 49924172 Incomplete emptying of bladder 714238668 Nocturia 837185604 Induration penis plastica 8371217 [id number] Sarah Juan [facility] [address] [place] [address] 08/12/2023 11:18:49 08/18/2023 15:34:14 Slowing of urinary stream 27586192 [id number] MD [facility] [address] [place] [address] 08/20/2023 11:10:04 08/20/2023 15:26:21 Primary erectile dysfunction 282893221 Slowing of urinary stream 96003289 Incomplete emptying of bladder 505639348 Nocturia 938921695 Induration penis plastica 5715232 Phimosis 332724223 [id number] MD [facility] [address] [place] [address] 11/27/2023 11:35:53 11/28/2023 09:35:21 Primary erectile dysfunction 626713382 Slowing of urinary stream 81210571 Incomplete emptying of bladder 142793020 Nocturia 847351669 Induration penis plastica 5439818 Phimosis 049040654 Health Concerns Section Related Observation LastModified by Organization Detai ls LastModified Time None Recorded Concern Status LastModified by Organization Details LastModified Time None Recorded Advance Directives Directive None Recorded Payers Encounter Date Sequence Insurance Name Policy Number Policy Ortega Covered Member ID Ortega Member ID Guarantor Name 11/27/2023 1 [place] [employer] Qu[place] P Trangsrud [id number] Quinton P Trangsrud 11/27/2023 2 [place] [id number] Quinton P Trangsrud [id number] Quinton P Trangsrud 08/20/2023 1 [place] [employer] Quinton P Trangsrud [id number] Quinton P Trangsrud 08/20/2023 2 [place] [id number] Quinton P Trangsrud [id number] Quinton P Trangsrud 08/12/2023 1 [place] [employer] Quinton P Trangsrud [id number] Quinton P Trangsrud 08/12/2023 2 [place] [id number] Quinton P Trangsrud [id number] Quinton P Trangsrud 05/21/2023 1 [place] [employer] Quinton P Trangsrud [id number] Quinton P Trangsrud 05/21/2023 2 [place] [id number] Quinton P Trangsrud [id number] Quinton P Trangsrud 11/13/2022 1 [place] [employer] Quinton P Trangsrud [id number] Quinton P Trangsrud 11/13/2022 2 [place] [id number] Quinton P Trangsrud [id number] Quinton P Trangsrud 08/05/2022 1 [place] [employer] Quinton De Anda [id number] Quinton De Anda 08/05/2022 2 [place] [id number] Quinton De Anda [id number] Quinton De Anda Notes Date Note Type [...] relationship he did seek care at the [facility] where he underwent shockwave therapy for [...] increased issues with erections. Alexi Rausch MD [address] [facility] [facility],[address], [place], [address], [facility] 08/05/2022 12:50:35 11/13/2022 text/html HPI Notes: [...] relationship he did seek care at the [facility] where he underwent shockwave therapy [...] and doing very well. Alexi Rausch MD [address] [place] [address],[address], [place], [address], [facility] 11/13/2022 14:04:25 05/21/2023 text/html HPI Notes: [...] relationship he did seek care at the [facility] where he underwent shockwave therapy [...] involving the distal phallus) Alexi Rausch MD [address] [facility] [address] [facility],[address], [place], [address], [facility] 05/21/2023 13:52:49 08/20/2023 text/html HPI Notes: [...] relationship he did seek care at the [facility] where he underwent shockwave therapy [...] bladder outlet obstruction. Alexi Rausch MD [address] [facility] [address], [place], [address], [facility] 08/20/2023 13:51:12 11/27/2023 text/html HPI Notes: Mr. De Anda is [...] relationship he did seek care at the [facility] where he underwent shockwave [...] which is consistent with bladder outlet obstruction. 11/27/2023: Here for follow up chronic erectile dysfunction, chronic nocturia, chronic weakened urinary stream, and chronic urinary frequency. Overall very happy with his urination. Does feel as though he is having increased difficulty maintaining erections through intercourse. Alexi Rausch MD [address] [facility], [place], [address], [facility] 11/27/2023 23:46:21
--- OUTSIDE RECORDS SUMMARY | 2023-12-29 07:51 | XMS_ITS | Referral Summary ---
Author Name Unknown Organization [facility] Address [address] [place] [address] Care Team Providers Care Pie Baker Name Role Phone Unavailable Primary Care Provider Unavailabl e Source Comments Patient records contain information from all sites at [facility]. For routine questions regarding patient records, call [phone] during business hours, M-F 8:00 AM - 5:00 PM Central Time. Record requests for emergency care only can be directed to [phone] at any time.[facility] Allergies No known active allergies Medications [...] day. 04/05/2022 Active glucosamine/msm/judith droitin A (GLUCOSAMINE GJQ-DHU-[id number] ORAL) Take 2 tablets by mouth 2 [...] mL inj As needed 01/14/2019 Acti ve amcylquhiov-kerxvsfha-LPLGNFJ rine 0.25%-1%-1:200,000 injection 2-25 mL 2 - [...] your living situation today? I have a [facility] place to live 08/11/2023 Sex and [...] - Plan of Treatment Not on file Procedures Procedure Name Priority Date/Time Associated Diagnosis [...] the 2009 CKD_EPI creatinine equation. eGFR-Black/Afric an Zambian >90 >=60 mL/min/BSA 04/25/2021 3:49 PM CDT DTL Comment: ----ADDITIONAL INFORMATION---- Estimated GFR calculated using the 2009 CKD_EPI creatinine equation. Blood (Blood, Venous) 04/25/2021 2:52 PM CDT 04/25/2021 3:18 PM CDT Ashley Mckeon M.D. LAB BLOOD ADD-ON [facility] [address] [place] [address], [place] DTL [facility] [address] [place] [address] from Last 3 Months or Most Recently Relevant to Health Maintenance
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
--- NOTE | 2023-12-29 08:00 | CT_ITS ---
Patient: BRAD LLOYD Facility:?[facility] Patient ID:?[id number] Site Patient ID:?[id number] Site :?1940 Study:?CT-Chest WITHOUT-12/29/2023 8:57:54 AM Ordering Physician:JEANNE Final Report: Indication: FOLLOW UP LUNG NODULE. HX OF MELANOMA Technique: Noncontrast CT chest Please note that all CT scans at this facility use dose modulation, iterative reconstruction, and/or weight-based dosing when appropriate to reduce radiation dose to as low as reasonably achievable. Comparison: 06/05/2022 Findings: Visualized thyroid gland is unremarkable. Atherosclerotic changes. Incidental pericardial recess. Calcifications within the aorta and coronary arteries. Postop changes to the upper abdomen. No fracture. No intrinsic osseous lesion. 9 millimeter nodule superior segment left lower lobe, 3/46, unchanged. 4 millimeter nodule superior segment right lower lobe, 3/46, unchanged. Other smaller nodules are similar. Emphysema. Biapical pleural-parenchymal scarring. Scarring within both lung bases. No pleural effusion. No pulmonary edema. No pneumothorax. Impression: Stable pulmonary nodules. No adenopathy. No significant change. Please note that all CT scans at this facility use dose modulation, iterative reconstruction, and/or weight-based dosing when appropriate to reduce radiation dose to as low as reasonably achievable. Dictated by Corbin Ng MD @ 12/29/2023 9:41:50 AM Signed by:?Corbin Ng MD @12/29/2023 9:41:50 AM (Electronic Signature)
== END 2023-12-29 07:49 | disposition home or self-care (01) ==
LOC: CT 07:48
PROVIDERS: PCP Internal Medicine; Visit Provider Internal Medicine
DX: R91.8 Other nonspecific abnormal finding of lung field (principal)
CPT/HCPCS: 71250

== ENCOUNTER 2024-02-26 13:45 | Outpatient (RCR) | payer MEDICARE, BC, SELFPAY ==
--- NOTE | 2023-12-18 09:21 | PT.OPEX ---
Please review and sign the attached physical therapy evaluation. Evaluation was completed on 12/18/23. Thank you. PT [place] Outpatient Eval PT [facility] Outpatient Eval Start: 12/17/23 11:26 Freq: Status: Active Protocol: Document 12/18/23 07:10 TLQ (Rec: 12/18/23 09:09 TLQ [id number]) E-signed By Svitlana Huang DPT Physical Therapy Outpatient Evaluation Insurance Information Recert Due Date 03/17/24 Insurance Name Medicare B,[employer] Medical Diagnosis Pain in right shoulder M25.511 Pain in right hip M25.551 Treating Diagnosis Pain in right shoulder M25.511 Impaired ROM of right shoulder M25.611 Pain in right hip M25.551 Stiffness of right hip M25.651 Muscle weakness M62.81 Referring MD Ellen Hamilton MD Subjective Subjective Quinton is here today to address right shoulder pain. Has a history of rotator cuff surgery (2008) on his right side, attended therapy but returned to activity earlier than suggested. Since then he has had difficulty raising his arm fully overhead. Over the past few months he has noticed a popping/clicking on the top of his right shoulder with overhead movements, can get sore when letting his arm hang at his side with walking. Goes to the gym 3x per week, pain present with shoulder press, notes he is able to swing his golf clubs without problem. Shoulder pain does not wake him up at night but does state that rolling onto his right shoulder can be painful. 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 Has also been having pain on the outside of his right hip, started in the fall without injury. States he is able to walk for 1 mile without it bothering him, also pain-free with golfing. Onset of pain seems random, patient unable to recall specific activities that frequently aggravate his hip pain. Describes pain as being dull in nature, increases to 3-4/10 when present. Notes over the past 3 -4 days he hasn't had any hip pain, since the first of the year his hip pain had been a daily occurrence. States he receives annual cortisone injections to help with chronic low back pain. PMHx: essential HTN, BPH, hyperlipidemia, central sleep apnea, hx of rotator cuff repair Pain Comments at best: 1/10 at worst: 6-7/10 location: superior right shoulder alleviating factors: non-use aggravating factors: overhead activity Date of Last Physician Visit 11/27/23 Current Work Status Retired Preferred Name Quinton Precautions Therapy Limitations/Systems Review Not Limited Objective Other/Pertinent Objective SHOULDER OBJECTIVE RANGE OF MOTION - SHOULDER sh. flexion: 108 degrees, pain with lowering sh. abduction: 110 degrees, painful arc at 90 degrees sh. internal rotation: 60 degrees, pain sh. external rotation: 32 degrees, pain *increased mobility and reduced pain with PROM* STRENGTH - SHOULDER (R) sh. flexion: 4 sh. abduction: 4, mild pain sh. IR: 4 sh. ER: 4 elbow flexion: 4 elbow extension: 5 PALPATION (R) tenderness at proximal biceps (long head), infraspinatus muscle belly JOINT MOBILITY normal posterior GH glide, no pain SPECIAL TESTS Lola (+) Neer's test (+) Reform's active compression test (+) for pain Empty can test (+) mild pain Drop arm test (-) Lag sign (+) for pain, able to hold against resistance Lift-off test (-) for pain, reports tightness, able to lift-off HIP OBJECTIVE RANGE OF MOTION - HIP (R) flexion: WFL abd-add: WFL internal rotation: 29 degrees, lateral hip pain external rotation: 25 degrees STRENGTH - HIP hip flexion: R 4, L 5 hip extension: 4 B hip abduction: 5 B hip adduction: 5 B hip IR: 4+ B hip ER: R 4, L 4+ PALPATION (R) mild tenderness at glute med and piriformis muscle belly non-tender at greater trochanter JOINT MOBILITY hypomobile posterior glide, pain-free SPECIAL TESTS - HIP (R) MEDARDO (+) for lateral hip pain , ROM restrictions FADIR (-) Scours (-) LE distraction: improves symptoms GAIT ambulates without A.D. Functional Test Performed & Score Shoulder Pain and Disability Index (SPADI) total score: 36/130 pain: 18/50, 36% disability: 18/80, 22.5% Assessment Assessment/Impression Quinton is an 83-year-old male who presents to outpatient physical therapy to address primary complaint of right shoulder pain and secondary complaint of right hip pain. Patient has history of right rotator cuff repair in 2008, states he never fully regained his mobility as he returned to golf earlier that suggested . Since his repair he reports difficulty lifting his arm fully overhead, demonstrates right shoulder AROM limitations in clinic today. Shoulder symptoms likely due to biceps and rotator cuff pathology - painful arc of motion and positive special tests for rotator and biceps involvement, specific results are indicated under objective measures. Patient had decreased pain and improved mobility with PROM assessments , patient was instructed through an initial HEP with AAROM interventions for right shoulder mobility. Briefly assessed right hip pain today, patient notes improved symptoms over the past few days. Patient unable to recall specific activities that initiate his lateral hip pain. Was able to reproduce pain in clinic today with passive internal rotation and MEDARDO positioning, positive response noted with manual long-axis distraction. Decreased hip rotation ROM and mild muscle weakness present on the right side. He was instructed through hip mobility and strength interventions, completed without hip or low back pain. I spent time reviewing today's examination findings with the patient, established goals and discussed POC which he verbally agreed to. Quinton will benefit from skilled interventions to reduce shoulder and hip pain by addressing mobility restrictions and muscle weakness. Primary Functional Limitations shoulder pain, shoulder AROM, rotator cuff weakness, hip pain, hip ROM, hip weakness Plan of Care Rehabilitation Potential Good Physical Therapy Goals In 4-6 visits: - Quinton will demonstrate 10- degree improvement in R shoulder flexion AROM for improved mobility with reaching overhead. - R shoulder external rotation AROM will improve by 10- degrees for decreased pain with rotational movements. - Subjective reports of R shoulder pain will decrease from 7/10 to <4/10 for improved tolerance to overhead activities. In 10-12 visits: - Score on SPADI will improve to <22.8 (MCID 13.2 points) to indicate improved function of his R shoulder with ADL's. - Quinton will demonstrate R shoulder abduction and flexion AROM that is WFL for improved tolerance to all overhead activities. - R shoulder external rotation ROM improve to be within 5- degrees of internal rotation. - Quinton will report subjective improvements in R hip pain with decreased average frequency of symptoms 2x/week or less. - Quinton will have good adherence to his HEP in order to manage symptoms outside of formal PT. Treatment Plan/Direct Interventions Gait Training,Manual Therapy, Neuromuscular Re-ed,Self-Care/ Home Management,Therapeutic Activities,Therapeutic Exercises Frequency/Duration 1x/week for 10-12 weeks Patient Will Be Discharged From Therapy Completion of LTG(s),Skills Plateau,Independent w/HEP, Independently Progressing Evaluation Billing Untimed Code Treatment Minutes 48 Complexity Low Certification Information Initial Certification Date 12/18/23 Ending Certification Date 03/17/24 Provider Signature Shows Agreement With POC & Medical Necessity Physician Signature & Date Requested Please Sign/Date Here Physician Comment/Change : Physician NPI Number #
== END 2024-04-07 10:32 | disposition home or self-care (01) ==
PROVIDERS: PCP Internal Medicine; Visit Provider Internal Medicine
DX: M25.511 Pain in right shoulder (principal); M25.551 Pain in right hip; Z51.89 Encounter for other specified aftercare
CPT/HCPCS: 71250; 97110; 97140; 97161

== ENCOUNTER 2024-05-26 07:30 | Outpatient (RCR) | payer MEDICARE, BC, SELFPAY | END 2024-08-26 11:52 | disposition home or self-care (01) | PROVIDERS: PCP Internal Medicine; Visit Provider Family Medicine | DX: M19.011 Primary osteoarthritis, right shoulder (principal); M70.61 Trochanteric bursitis, right hip; M67.911 Unspecified disorder of synovium and tendon, right shoulder; M76.01 Gluteal tendinitis, right hip; M25.511 Pain in right shoulder; M25.611 Stiffness of right shoulder, not elsewhere classified; M62.81 Muscle weakness (generalized); Z51.89 Encounter for other specified aftercare | CPT/HCPCS: 97110; 97140; 97161 ==

== ENCOUNTER 2024-11-11 10:44 | Outpatient (CLI) | payer MEDICARE, BC, SELFPAY | END 2024-11-11 10:45 | disposition home or self-care (01) | LOC: NFLDREF 10:46 | PROVIDERS: PCP Internal Medicine; Visit Provider Internal Medicine | DX: I10 Essential (primary) hypertension (principal) | CPT/HCPCS: 80048 ==

== ENCOUNTER 2024-11-26 07:33 | Outpatient (CLI) | payer MEDICARE, BC, SELFPAY | END 2024-11-26 07:34 | disposition home or self-care (01) | LOC: NFLDREF 11-27 07:31 | PROVIDERS: PCP Internal Medicine; Referring Provider Internal Medicine; Visit Provider Internal Medicine | DX: E78.5 Hyperlipidemia, unspecified (principal) | CPT/HCPCS: 80061 ==

== ENCOUNTER 2025-04-18 01:15 | Emergency (ER) | payer MEDICARE, BC, SELFPAY ==
--- OUTSIDE RECORDS SUMMARY | 2025-01-05 04:45 | XMS_ITS ---
Author Organization [facility] Address [address] [place] [address] Care Team Providers Care Brand Manager Name Role Phone Ellen Hamilton Primary Care Provider JOSE Louie [phone] REASON FOR VISIT POST OP/SURGERY 12-29-24 Encounters Encounter Location Date Provider Diagnosis [facility] [address] [place] [address] 01/05/2025 JOSE COLLAZO Plan Of Treatment No Information Progress Notes * [place] DE ANDA PDOB:[birth year] (84 yo M)Acc No.[id number]:01/05/2025 Patient: Radha del realQuinton Provider: Cora Collazo MD :1940 A ge:84 Y S ex:Male Date:01/05/2025 Address:[address] [place], [place] [id number] Pcp:Ellen Hamilton Subjective: * Chief Complaints: * P OST OP/SURGERY 12-29-24 * Electronic signature of DINA COLLAZO MD on 04/18/2025 at 01:18 AM CDT Sign off status: Pending * Provider: Cora Collazo MD Date: 0 01/05/2025 Generated for Printi ng/Faxing/eTransmitting on: 0 04/18/2025 01:18 AM CDT
--- OUTSIDE RECORDS SUMMARY | 2025-03-30 05:15 | XMS_ITS | Encounter Summary ---
Author Name [facility] [facility] [place] Address [address] [place] [id number] Care Team Providers Care Environmental Services Coordinator Name Role Phone MIKO JOHNSON Primary Care Provider Unava ilable Insurance Providers: All historical and current Section Date Range: From patient's date of to the date document was created. This section includes the names of all active insurance providers for the patient. Insurance Provider Type of Coverage Plan Name Start of Policy Coverage End of Policy Coverage Group Number Member ID Insurance Provider's Telephone Number Policy Ortega's Name Patient's Relationship to Policy Ortega [facility] MEDICARE SUPPLEMEN DAVE MEDIC ARE SUPPL EMENT Sep 01, 2016 [id number] [phone] BRAD LLOYD PATIENT [facility] MEDICARE SUPPLEMEN DAVE MEDIC ARE SUPPL EMENT Sep 01, 2016 [id number] [phone] BRAD LLOYD PATIENT MEDICARE (WNR) MEDICARE (M) PART B Oct 02, 2003 PART B [id number] [phone] BRAD LLOYD PATIENT MEDICARE (WNR) MEDICARE (M) PART A Jul 02, 2003 PART A [id number] BRAD LLOYD PATIENT Selected Encounter This section includes the information on record at [place] for the Encounter. Date/Time Encounter Type Encounter Description Reason Provider Source Mar 30, 2025 10:15 AM OFFICE O/P EST HI 40 MIN PRIMARY CARE/MEDICINE ICD-10-CM E78.5 Hyperlipidemia, unspecified DONGLIZBETH OVIEDOY Maximiliano IHE Encounter Template Text not used by [place] Assessments - Encounter Diagnoses This section includes the primary and secondary diagnoses documented for the Encounter. Date/Time Primary/Secondary Diagnosis Diagnosis Name Provider Source Mar 30, 2025 10:54 AM PRIMARY Hyperlipidemia, unspecified DONG-Jennifer OCHOA [facility] Mar 30, 2025 10:54 AM SECONDARY Allergic rhinitis, unspecified DONG-OCHOA,Jennifer Viera [facility] Mar 30, 2025 10:54 AM SECONDARY Anemia, unspecified DONG-OCHOA,Jennifer Viera [facility] Mar 30, 2025 10:54 AM SECONDARY Essential (primary) hypertension Jennifer JOHNSON [facility] Lab Results: +/- 30 days of the encounter This section includes the Chemistry and Hematology Lab Results on record with [place] for the patient. Radiology Reports and Pathology Reports are provided separately, in subsequent sections. Lab Results This section contains the Chemistry/Hematology Results that were resulted 30 days before or 30 daysafter the date of the Encounter. Date/Time Source Result Type Result - Unit Interpretation Reference Range Specimen Type Comment Mar 30, 2025 09:13 AM [facility] CBC & DIFF BLOOD Specimen Type: BLOOD Comment: Automated Differential Performed Ordering Provider: JAYA JOHNSON Report Released Date/Time: Feb 24, 2025 09:47 AM Reporting Lab: [facility] [id number] Performing Lab: [facility] [phone] WBC 7.1 4.0-11.0 RBC 4.21 L 4.60-6.20 HGB 13.0 g/dL L 13.5-17.9 HCT 38.9 L 41.0-54.0 MCV 92.4 fL 80.0-100.0 MCH 30.9 pg 27.0-33.0 MCHC 33.4 g/dL 32.0-37.5 PLT 211 150-400 MPV 10.3 fL 9.1-13.0 NEUT 68.8 40.0-80.0 LYMPHS 19.4 15.0-45.0 MONO 7.9 2.0-12.0 EOSINO 3.5 0.0-6.0 BASO 0.3 0.0-2.0 RDW 13.5 11.5-14.5 ABS LYMPH 1.4 1.0-4.0 ABS MONO 0.6 0.1-1.0 ABS NEUT 4.9 2.0-7.7 ABS EOS 0.3 0.0-0.5 ABS BASO 0.0 0.0-0.2 IG(META,MYELO,PRO) 0.1 ABS IMMATURE GRAN 0.0 0.0-0.1 Mar 30, 2025 09:13 AM [facility] COMPREHENSIVE METABOLIC PANEL+MG PLASMA Specimen Type: PLASMA No comment entered. Ordering Provider: MIKO JOHNSON Report Released Date/Time: Feb 24, 2025 09:47 AM Reporting Lab: [facility] [phone] Performing Lab: [facility] [phone] CREATININE 0.8 mg/dL 0.7-1.2 UREA NITROGEN 17 mg/dL 8-26 GLUCOSE 86 mg/dL 70-100 SODIUM 138 mmol/L 136-145 POTASSIUM 4.1 mmol/L 3.5-5.1 CHLORIDE 104 mmol/L 98-107 CO2 30 mmol/L H 22-29 CALCIUM 8.9 mg/dL 8.4-10.2 PROTEIN,TOTAL 6.6 g/dL 6.4-8.3 ALBUMIN 4.1 g/dL 3.5-5.0 BILIRUBIN, TOTAL 0.5 mg/dL 0.2-1.2 MAGNESIUM 2.1 mg/dL 1.6-2.6 ANION GAP 4 mmol/L L 5-15 ALKALINE PHOSPHATASE 73 U/L 40-150 ALT/SGPT 12 U/L <44 AST/SGOT 22 U/L 11-34 .CREAT EGFR(CKD-EPI) 86 >60 Mar 30, 2025 09:13 AM [facility] LIPID PANEL,NON-FASTING PLASMA Spec imen Type: PLASMA No comment entered. Ordering Provider: MIKO JOHNSON Report Released Date/Time: Feb 24, 2025 09:47 AM Reporting Lab: [facility] [phone] Performing Lab: [facility] [phone] CHOLESTEROL 185 mg/dL <199 .HDL 71 mg/dL >40 LDL CALCULATION 103 mg/dL H <99 VLDL CALCULATION 11 mg/dL <29 NON HDL CHOLESTEROL 114 mg/dL <129 TRIG(NON FASTING) 54 mg/dL <149 Mar 30, 2025 09:13 AM [facility] HEMOGLOBIN A1C BLOOD Specimen Type : BLOOD Comment: Values obtained from A1C measurements can vary. For typical A1C assays, a reported value of 7.0 could actually be between 6.7 and 7.3 if measured by a reference method. A reported value of 9.0 could actually be between 8.7 and 9.3. Ref: http://ngsp.org/CAPdata.asp Ordering Provider: MIKO JOHNSON Report Released Date/Time: Feb 24, 2025 09:47 AM Reporting Lab: [facility] [phone] Performing Lab: [facility] [phone] HEMOGLOBIN A1C 5.4 4.0-6.0 Mar 30, 2025 09:13 AM [facility] ANTI-HEP C(EIA) SERUM Specimen Typ e: SERUM Comment: Specimen received is PLASMA. Ordering Provider: MIKO JOHNSON Report Released Date/Time: Mar 30, 2025 10:44 AM Reporting Lab: [facility] [phone] Performing Lab: [facility] [phone] ANTI-HEP C(EIA) NEGATIVE NEGATIVE Mar 30, 2025 09:13 AM [facility] IRON GROUP SERUM Specimen Type : SERUM Comment: Specimen received is PLASMA. Ordering Provider: MIKO JOHNSON Report Released Date/Time: Mar 30, 2025 10:45 AM Reporting Lab: [facility] [phone] Performing Lab: [facility] [phone] IRON 84 ug/dL 65-175 TIBC,CALCULATED 316 ug/dL 250-425 FERRITIN 44.2 ng/mL 21.8-274.7 IRON SATURATION 27 20-50 TRANSFERRIN 253 mg/dL 163-382 Vital Signs: All taken on the encounter date This section contains inpatient and outpatient Vital Signs collected on the date of the Encounter. Date/Time Temperature Pulse Blood Pressure Respiratory Rate SP02 Pain Height Weight Body Mass Index Source Mar 30, 2025 09:57 AM 143/74 mm[Hg] [facility] Mar 30, 2025 09:48 AM 97.8 F 64 /min 146/73 mm[Hg] 12 /min 99 % 70.25 in 163.9 lb 23 [facility] Social History: Smoking Status (Most current) and Tobacco Use (All prior to encounter date) This section includes the most current, and the historical, smoking and tobacco- related health factors from the [place] facility where the Encounter took place. Current Smoking Status This section includes the most current smoking, or tobacco-related health factor, from the [place] facility where the Encounter took place. Date/Time Current Smoking Status Comment Facil ity Mar 30, 2025 10:15 AM VA-TOBACCO USE FORMER CIGARETTES [facility] Tobacco Use History This section includes a history of the smoking, or tobacco-related health factors, that were collected on or before the date of the Encounter. The data comes from the [place] facility where the Encounter took place. Date/Time Smoking Status/Tobacco Use Comment F acility Mar 30, 2025 10:15 AM VA-TOBACCO USE ADVICE [facility] Mar 30, 2025 10:15 AM VA-TOBACCO USE HELP DESK ANALYST NO [facility] Mar 30, 2025 10:15 AM VA-TOBACCO USE FORMER CIGARETTES [facility] Mar 30, 2025 10:15 AM VA-TOBACCO USE MED NO [facility] Mar 30, 2025 10:15 AM VA-TOBACCO USE JOVITA E DAYS CIGARS/PIPES [facility] Mar 30, 2025 10:15 AM VA-TOBACCO USE SOME DAYS OTHER T YPE [facility] Sep 16, 2023 02:22 PM VA-TOBACCO FORMER USER [facility] Sep 16, 2023 02:22 PM VA-TOBACCO QUIT 15 YRS OR MORE [facility] Sep 20, 2022 08:15 AM VA-TOBACCO FORMER USER [facility] Sep 20, 2022 08:15 AM VA-TOBACCO QUIT 15 YRS OR MORE [facility] Apr 02, 2021 11:30 AM VA-TOBACCO FORMER USER [facility] Apr 02, 2021 11:30 AM VA-TOBACCO QUIT 15 YRS OR MORE [facility] Aug 16, 2019 01:40 PM VA-TOBACCO FORMER USER [facility] Aug 16, 2019 01:40 PM VA-TOBACCO QUIT 15 YRS OR MORE [facility] Advance Directives: All historical and current Section Date Range: From patient's date of to the date document was created. This section includes ALL of a patient's completed or amended [place] Advance and Rescinded Directives. The entries below indicate that a directive exists for the patient, but an actual copy is not included with this document. The data comes from all [place] facilities. Date Advance Directives Provider Source Apr 02, 2004 ADVANCE DIRECTIVE ABRAN SESAY S [facility] Encounter Notes: All associated encounter notes This section contains the clinical notes associated to the Encounter. Date/Time Encounter Note(s) Provider Source Mar 30, 2025 10:42 AM INTERNAL MEDICINE NOTE: LOCAL TITLE: MEDICINE CLINIC NOTE STANDARD TITLE: INTERNAL MEDICINE NOTE DATE OF NOTE: MAR 30, 2025@10:42 ENTRY DATE: MAR 30, 2025@10:42:29 AUTHOR: MIKO JOHNSON COSIGNER: URGENCY: STATUS: COMPLETED REASON FOR VISIT: Annual ASSESSMENT / PLAN / FOLLOW UP #Hypertension, well-controlled #Hyperlipidemia, controlled for primary prevention. #Allergic rhinitis, status post sinus surgery with protracted recovery but good ultimate result. #Mild anemia, unclear will add iron panel to rule out NEAL. Otherwise patient has been told he no longer needs colorectal cancer screening. FOLLOW UP PLAN: Annual with labs OTHER NOTES: N/A PRINTED INSTRUCTIONS = *THE FOLLOWING INSTRUCTIONS WERE DICTATED IN THE PRECENSE OF, REVIEWED, PRINTED AND PROVIDED TO THE PATIENT/FAMILY. NA == SUBJECTIVE ====== HPI/NARRATIVE: Panel patient I am meeting for the first time today presents for annual visit. He is comanaged. He has no significant concerns though he does share that he had sinus surgery in November, took 8 weeks and 1 day to recover but ultimately feels better than he did prior to the surgery. Exercises regularly without any limitations or issues. 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 REVIEW OF SYSTEMS: A problem focused ROS is detailed above, otherwise negative. Active problems - Computerized Problem List is the source for the followin. Hyperlipidemia ([facility] [id number]) 2. HTN - Hypertension ([facility] [id number]) 3. Allergic Rhinitis ([facility] [id number]) - Sinus surgery Nov 2024, long recovery but good result 4. Erectile Dysfunction ([facility] [id number]) 5. Tear of left rotator cuff 6. Nocturia due to benign prostatic hypertrophy *PROBLEM LIST WAS REVIEWED AND RECONCILED. == ALL / MEDS ====== ALLERGIES: Patient has answered NKA Active Outpatient Medications (excluding Supplies): Outpatient Medications Status 1) LIDOCAINE 5% PATCH APPLY 1 PATCH EVERY DAY NEEDED FOR ACTIVE (S) PAIN WEAR FOR 12 HOURS AND THEN REMOVE 2) PSYLLIUM ORAL PWD TAKE 1 TABLESPOON BY MOUTH EVERY DAY MIXED ACTIVE IN JUICE OR WATER DIRECTED TO HELP REGULATE STOOLS TO HELP HEMORRHOIDS. Non-VA Medications Status 1) Non-VA CALCIUM POLYCARBOPHIL TAB ACTIVE 2) Non-VA CETIRIZINE TAB ACTIVE 3) Non-VA DOCUSATE NA 100MG CAP 200MG MOUTH NEEDED ACTIVE 4) Non-VA FINASTERIDE 5MG TAB 5MG MOUTH EVERY DAY ACTIVE 5) Non-VA FLUTICASONE PROP 50MCG 120D NASAL INHL 2 SPRAYS EACH ACTIVE NOSTRIL EVERY DAY NEEDED 6) Non-VA HYDROCHLOROTHIAZIDE 25MG TAB 25MG MOUTH EVERY DAY ACTIVE 7) Non-VA METHYLCELLULOSE TAB MOUTH ACTIVE 8) Non-VA MULTIVITS W/MINERALS(NO VIT K) TAB ACTIVE 9) Non-VA TADALAFIL TAB 5MG MOUTH NEEDED ACTIVE 10) Non-VA TAMSULOSIN HCL 0.4MG CAP 0.4MG MOUTH AT BEDTIME ACTIVE 12 Total Medications *MEDICATIONS AND ALLERGIES WERE REVIEWED AND RECONCILED. SOCIAL HISTORY ==== Service History / Connection: PRIMARY ELIGIBILTY CODE - [employer] (Apr to Mar) A Prisoner of War: NO Currently: Occupation: [employer], Smoking history: 03/30/2025 Former Cigarette User AUDIT-C: Date Instrument Raw Trans Scale 03/30/2025 10:15 AUDC 4 Total PHYSICAL EXAM ===== VITAL SIGNS: BP: 143/74 (03/30/2025 09:57) HR: 64 (03/30/2025 09:48) RR: 12 (03/30/2025 09:48) O2 sat: 99% (03/30/2025 09:48) T: 97.8 F [36.6 C] (03/30/2025 09:48) WTS: Measurement DT WEIGHT LB(KG)[BMI] 03/30/2025 09:48 163.9(74.34)[23] 09/17/2023 11:51 177.4(80.47)[25] 09/20/2022 08:03 177.2(80.38)[25] CONST: Alert, interactive, comfortable appearing. EYES: Anicteric, conjunctiva normal, pupils equal, round, EOMI. ENT: MMM, w/o edema, obstruction. NECK: Supple without asymmetry, deformity or notable masses. RESP: Normal breathing pattern. CTAB. CV: RRR, no MGR. SKIN: No rashes or lesions to the exposed skin. NEURO: CN II-XII grossly intact. Speech pattern, attention, memory, judgement, and sensorimotor grossly intact. PSYCH: Well-groomed and appropriately dressed. Mood and affect appropriate to situation/circumstance. No HI/SI noted. No delusions or hallucinations. RELEVANT STUDIES / DATA = *REVIEWED IN CPRS AND JLV APPLICABLE. HGB A1C: 5.4 GLUCOSE: 86 UREA NITROGEN: 17 CREATININE: 0.8 SODIUM: 138 POTASSIUM: 4.1 CHLORIDE: 104 CO2: 30 H CALCIUM: 8.9 CHOLESTEROL: 185 PROTEIN,TOTAL: 6.6 ALBUMIN: 4.1 BILIRUBIN,TOTAL: 0.5 MAGNESIUM: 2.1 HDL: 71 ANION GAP: 4 L LDL CHOL: 103 H VLDL CHOL: 11 ALKALINE PHOSPHATASE(37C): 73 SGOT(37C): 22 SGPT(37C): 12 NON HDL CHOLESTEROL: 114 TRIG(NON FASTING): 54 CREATININE EGFR (CKD-EPI): 86 WBC: 7.1 RBC: 4.21 L HGB: 13.0 L HCT: 38.9 L MCV: 92.4 MCH: 30.9 MCHC: 33.4 RDW: 13.5 PLT: 211 MPV: 10.3 SEGS: 68.8 LYMPHS: 19.4 MONOCYTES: 7.9 EOSINO: 3.5 BASO: 0.3 NEUTROPHIL, ABSOLUTE: 4.9 EOSINO, ABSOLUTE: 0.3 BASO, ABSOLUTE: 0.0 MONOCYTE, ALTERNATE ABS: 0.6 LYMPHS, ALTERNATE ABS: 1.4 I.1 IG,ABSOLUTE: 0.0 46 MINUTES SPENT ON THIS EPISODE OF CARE, INCLUDING CHART REVIEW, EVALUATION, COORDINATION OF CARE, AND DOCUMENTATION. /debbie/ MIKO JOHNSON MD STAFF DIRECTOR DIETETICS DEPARTMENT Signed: 03/30/2025 10:54 CASSANDRA JOHNSON [facility] Mar 30, 2025 09:49 AM INTERNAL MEDICINE OUTPATIENT NOTE: LOCAL TITLE: MEDICINE CLINIC NURSING NOTE STANDARD TITLE: INTERNAL MEDICINE OUTPATIENT NOTE DATE OF NOTE: MAR 30, 2025@09:49 ENTRY DATE: MAR 30, 2025@09:49:22 AUTHOR: YANES,TAB J EXP COSIGNER: URGENCY: STATUS: COMPLETED TYPE OF VISIT: Appointment Check In Type of appointment: In-person appointment REASON FOR VISIT: Annual ALLERGIES: Patient has answered NKA VITAL SIGNS: Blood Pressure: 146/73 (03/30/2025 09:48) Pulse: 64 (03/30/2025 09:48) Respiration: 12 (03/30/2025 09:48) Temperature: 97.8 F [36.6 C] (03/30/2025 09:48) Weight: 163.9 lb [74.34 kg] (03/30/2025 09:48) Height: 70.25 in [178.4 cm] (03/30/2025 09:48) BMI: 23.4 O2 Sat: 99% (03/30/2025 09:48) Pain: 0 (09/17/2023 11:51) MEDICATION Over the Counter/Herbal Medications: The patient states that they take some outside medications and/or herbals. Suicide Screen: C-SSRS Screening [place] Suicide Severity Rating Scale (C-SSRS) screener 1. [...] required due to responses to other questions. Tobacco Use Screening: The patient is a former cigarette smoker. The patient uses other type(s) of tobacco some days. Other Tobacco Type(s) used: Cigars/pipes/small cigars Depression Screening: Perform PHQ-2 A PHQ-2 screen was performed. The score was 0 which is a negative screen for depression. Over the past two weeks, how often have you been bothered by the following problems? 1. Little interest or pleasure in doing things Not at all 2. Feeling down, depressed, or hopeless Not at all Alcohol Use Screen (AUDIT-C): Alcohol Screen: SCREEN [...] one occasion in the past year? Never PTSD Screening: PC-PTSD-5 A PTSD screening test (PC-PTSD-5) was negative (score=0). Sometimes things happen to people that are unusually or especially frightening, horrible or traumatic. For example: A serious accident or fire a physical or sexual assault or abuse An earthquake or flood A war Seeing someone be killed or seriously injured Having a loved one through homicide or suicide 1. Have you ever experienced this kind of event? NO 2. Had nightmares about the event(s) or thought about the event(s) when you did not want to? Response not required due to responses to other questions. 3. Tried hard not to think about the event(s) or went out of your way to avoid situations that reminded you of the event(s)? Response not required due to responses to other questions. 4. Been constantly on guard, watchful, or easily startled? Response not required due to responses to other questions. 5. Brick numb or detached from people, activities, or your surroundings? Response not required due to responses to other questions. 6. Brick guilty or unable to stop blaming yourself or others for the event(s) or any problems the event(s) may have caused? Response not required due to responses to other questions. Nursing Annual Screening: Script Talk Screen Are you able to read your prescription bottles with your glasses, magnifiers or other aids? Yes or patient not taking any prescriptions. Skin Screen Patient reports any current pressure ulcers, a history of pressure ulcers, or a wound from a medical historian or Patient is bed-confined or a wheelchair-user or Patient requires assistance to transfer/change position No, Skin Screen is Negative Home Abuse/Violence Screen Is your home free of abuse and violence? Yes Outpatient Nutrition Screen Body Mass Index (BMI)= 23.4 [place]: Collection DT Specimen Test Name Result Units Ref Range 03/30/2025 09:13 BLOOD !! HEMOGLOBIN A1C 5.4 % 4.0 - 6.0 !! Indicates COMMENTS AVAILABLE...Refer to Interim Lab Report. [facility] Hgb A1C: No data available [place] Hgb A1C: No data available Point of [...] Parenteral Nutrition (TPN) or Tube Feedings? No Client Assistive Service (DASHAWN) Screen Does the patient require assistance with outpatient visit? No Homelessness/Food Insecurity Screen: In the past 2 months, have you been living in stable housing that you own, rent, or stay in as part of a household? Yes - Living in stable housing. Are you worried or concerned that in the next 2 months you may NOT have stable housing that you own, rent, or stay in as part of a household? No - Not worried about housing near future [facility] [place] reports the following: Within the past 12 months, you worried whether your food would run out before you got money to buy more. Never true Within the past 12 months, the food you bought just didn't last and you didn't have money to get more. Never true Food Assistance Programs [facility] Food Assistance [facility] COVID-19 Immunization: Refused Pfizer Monovalent COVID-19 vaccine Immunization: COVID-19 (PFIZER), MRNA, LNP-S, PF, XOCHILT-SUCROSE, 30 MCG/0.3 ML (AGES 12+ YEARS) Refusal Reason: PATIENT DECISION Patient refuses all immunization(s) in the COVID-19 group Date Documented: 03/30/25 09:56 Td/Tdap Immunization: The patient declines to receive the recommended dose of Td/Tdap vaccine. Immunization: TD(ADULT) UNSPECIFIED FORMULATION Refusal Reason: PATIENT DECISION Patient refuses all immunization(s) in the Td group Date Documented: 03/30/25 09:57 /debbie/ JUDITH Viera. JOAQUÍN POTTER Signed: 03/30/2025 09:57 JUDITH YANES [facility]
--- OUTSIDE RECORDS SUMMARY | 2025-03-30 05:47 | XMS_ITS | Continuity of Care Document ---
Author Name [facility] Organization [facility] Care Team Providers Care Interior Mechanic Name Role Phone [facility] Unavailable Unavailable Problems Combined list of problems from [facility] and [facility] facilities. It does not include entries that were removed or entered in error. Problem Status Onset Date Problem Type Date of Resolution Comments Source Allergic Rhinitis ([facility] [id number]) Active Condition Mar 30, 2025 Entered By: MIKO JOHNSON Comment: Sinus surgery Nov 2024, long recovery but good result [facility] Erectile Dysfunction ([facility] [id number]) Active Condition [facility] HTN - Hypertension ([facility] [id number]) Active Condition [facility] Hyperlipidemia ([facility] [id number]) Active Condition [facility] Nocturia due to benign prostatic hypertrophy Active Condition [facility] Tear of left rotator cuff Active Condition [facility] Diagnosis: ICD-10-CM E78.5 Hyperlipidemia, unspecified Active Diagnosis [facility] Medications Combined list of outpatient medications from [facility] and [facility] facilities.Medications provided include 1) outpatient medications from the last 15 months, and 2) patient-reported medications. Medication Details Route Status Patient Instructions Prescription Expires Prescription Number Last Dispense Date Ordering Provider Order Date Order Qty Source CALCIUM POLYCARBOPH IL TAB TAKE ACTIVE TRAUT,HERACLIO HARD L 2020 [facility] DOCUSATE NA 100MG CAP TAKE 2 CAPSULES BY MOUTH PRN ORAL ACTIVE TRAUT,HERACLIO HARD L 2020 [facility] FINASTERIDE 5MG TAB TAKE ONE TABLET BY MOUTH EVERY DAY ORAL ACTIVE TRAUT,HERACLIO HARD L 2020 [facility] FLUTICASONE PROPIONATE 50MCG/SPRAY SOLN,NASAL, 16GM SPRAY 2 SPRAYS IN EACH NOSTRIL EVERY DAY NEEDED NASAL ACTIVE TRAUT,HERACLIO HARD L 2019 [facility] HYDROCHLORO THIAZIDE 25MG TAB TAKE ONE TABLET BY MOUTH EVERY DAY ORAL ACTIVE TRAUT,HERACLIO HARD L 2019 [facility] LIDOCAINE 5% PATCH APPLY 1 PATCH EVERY DAY NEEDED FOR PAIN WEAR FOR 12 HOURS AND THEN REMOVE TOPICA L ACTIVE 02/25/2026 [id number] DONG-CASSANDRA JONES 2024 30 [facility] LIDOCAINE 5% PATCH APPLY 1 PATCH TOPICALL Y EVERY DAY NEEDED FOR PAIN WEAR FOR 12 HOURS AND THEN REMOVE TOPICA L 09/17/2024 [id number] BRADLEYANDREW SOLIZ Leonardo 2023 30 [facility] LORATADINE 10MG TAB TAKE ONE TABLET BY MOUTH EVERY DAY ORAL ACTIVE DONG-CASSANDRA JONES 2024 [facility] METHYLCELLU LOSE TAB TAKE BY MOUTH ORAL ACTIVE TRAUT,HERACLIO HARD L 2020 [facility] MULTIVITS W/MINERALS( NO VIT K) TAB TAKE ACTIVE TRAUT,HERACLIO HARD L 2020 [facility] PSYLLIUM PWDR,ORAL TAKE 1 TABLESPO ON BY MOUTH EVERY DAY MIXED IN JUICE OR WATER DIRECTED TO HELP REGULATE STOOLS TO HELP HEMORRHO IDS. ORAL ACTIVE 02/25/2026 [id number] CASSANDRA MAIN 2024 390 [facility] SIMVASTATIN 20MG TAB TAKE ONE TABLET BY MOUTH AT BEDTIME ORAL ACTIVE DONG-CASSANDRA JONES 2024 [facility] TADALAFIL TAB TAKE 5MG BY MOUTH PRN ORAL ACTIVE TRAUT,HERACLIO HARD L 2020 [facility] TAMSULOSIN HCL 0.4MG CAP TAKE 1 CAPSULE BY MOUTH AT BEDTIME ORAL ACTIVE TRAUT,HERACLIO HARD L 2020 [facility] Immunizations Combined list of available immunizations from the Department of Defense and [facility] Affairs facilities. Immunization Series Date Given Administered By Site Reaction Lot Number CVX Code Drug Sales Support Specialist Status Comments Source ZOSTER RECOMBINANT 2 2022 YAZMIN DE OLIVEIRA LEFT DELTO ID [id number] 187 complet ed ADMINISTE GUERITA AT [place], @@ ENTER DILUENT LOT# HERE [id number] [facility] INFLUENZA, HIGH-DOSE, QUADRIVALENT 2021 197 complet ed HISTORICA L INFORMATI ON - FROM OTHER REGISTRY, [facility] INFLUENZA, UNSPECIFIED FORMULATION 2021 88 complet ed HISTORICA L INFORMATI ON - FROM OTHER REGISTRY, [facility] INFLUENZA, HIGH-DOSE, QUADRIVALENT 2020 197 complet ed HISTORICA L INFORMATI ON - FROM OTHER REGISTRY, [facility] COVID-19 (PFIZER), MRNA, LNP-S, PF, 30 MCG/0.3 ML DOSE 2020 208 complet ed HISTORICA L INFORMATI ON - FROM OTHER REGISTRY, [facility] COVID-19 (PFIZER), MRNA, LNP-S, PF, 30 MCG/0.3 ML DOSE 2 2020 208 complet ed PFR; [id number]; 1 [facility] COVID-19 (PFIZER), MRNA, LNP-S, PF, 30 MCG/0.3 ML DOSE 1 2020 208 complet ed PFR; [id number]; 1 [facility] ZOSTER RECOMBINANT 2020 187 complet ed HISTORICA L INFORMATI ON - FROM OTHER REGISTRY, [facility] INFLUENZA, INJECTABLE, QUADRIVALENT 2019 158 complet ed HISTORICA L INFORMATI ON - FROM OTHER REGISTRY, [facility] INFLUENZA, UNSPECIFIED FORMULATION 2019 88 complet ed [facility] INFLUENZA, HIGH DOSE SEASONAL 2018 135 complet ed HISTORICA L INFORMATI ON - FROM OTHER REGISTRY, [facility] INFLUENZA, HIGH DOSE SEASONAL 2018 135 complet ed [facility] PNEUMOCOCCAL CONJUGATE PCV 13 2018 133 complet ed [facility] INFLUENZA, TRIVALENT, ADJUVANTED 2017 168 complet ed HISTORICA L INFORMATI ON - FROM OTHER REGISTRY, [facility] INFLUENZA, TRIVALENT, ADJUVANTED 2016 168 complet ed HISTORICA L INFORMATI ON - FROM OTHER REGISTRY, [facility] INFLUENZA, HIGH DOSE SEASONAL 2015 135 complet ed HISTORICA L INFORMATI ON - FROM OTHER REGISTRY, [facility] INFLUENZA, HIGH DOSE SEASONAL 2014 135 complet ed HISTORICA L INFORMATI ON - FROM OTHER REGISTRY, [facility] PNEUMOCOCCAL CONJUGATE PCV 13 2014 133 complet ed HISTORICA L INFORMATI ON - FROM OTHER REGISTRY, [facility] TDAP 2014 115 complet ed HISTORICA L INFORMATI ON - FROM OTHER REGISTRY, [facility] INFLUENZA, INJECTABLE, QUADRIVALENT, PRESERVATIVE FREE 2013 150 complet ed HISTORICA L INFORMATI ON - FROM OTHER REGISTRY, [facility] INFLUENZA, SEASONAL, INJECTABLE 2012 141 complet ed HISTORICA L INFORMATI ON - FROM OTHER REGISTRY, [facility] INFLUENZA, SEASONAL, INJECTABLE 2011 141 complet ed HISTORICA L INFORMATI ON - FROM OTHER REGISTRY, [facility] INFLUENZA, SEASONAL, INJECTABLE 2010 141 complet ed HISTORICA L INFORMATI ON - FROM OTHER REGISTRY, [facility] ZOSTER LIVE 2009 121 complet ed HISTORICA L INFORMATI ON - FROM OTHER REGISTRY, [facility] INFLUENZA, SEASONAL, INJECTABLE, PRESERVATIVE FREE 2009 140 complet ed HISTORICA L INFORMATI ON - FROM OTHER REGISTRY, [facility] INFLUENZA, INJECTABLE, QUADRIVALENT, PRESERVATIVE FREE 2009 150 complet ed HISTORICA L INFORMATI ON - FROM OTHER REGISTRY, [facility] NOVEL INFLUENZA-H1N 1-09, ALL FORMULATIONS 2009 128 complet ed HISTORICA L INFORMATI ON - FROM OTHER REGISTRY, [facility] PNEUMOCOCCAL POLYSACCHARID E [id number] 2005 33 complet ed [facility]ICA [facility] INFORMATI ON - FROM OTHER REGISTRY, [facility] TD (ADULT), 2 LF TETANUS TOXOID, PRESERVATIVE FREE, ADSORBED 2004 09 complet ed HISTORICA L INFORMATI ON - FROM OTHER REGISTRY, [facility] INFLUENZA (HISTORICAL) 2003 88 complet ed [facility] PNEUMOCOCCAL, UNSPECIFIED FORMULATION 2003 NONE 109 complet ed [facility] INFLUENZA (HISTORICAL) 2002 88 complet ed [facility] TD(ADULT) UNSPECIFIED FORMULATION 1998 139 complet ed [facility] Results Combined list of recent chemistry, hematology and other laboratory results from Department of Defense and Veterans Affairs, ranging from 15 months to all on record, depending upon the facility. Order Name Results Value Reference Range Date Interpretation Specimen Comments Source CBC & DIFF LEUKOCYTES [#/VOLUME] IN BLOOD BY AUTOMATED COUNT 7.1 4.0 - 11.0 03/30 Specimen Type: BLOOD Comment: Automated Differentia l Performed Ordering Provider: MIKO JOHNSON Report Released Date/Time: Feb 24, 2025 09:47 AM Reporting Lab: [facility] [address] Performing Lab: [facility] [address] [place] [facility] CBC & DIFF ERYTHROCYT ES [#/VOLUME] IN BLOOD BY AUTOMATED COUNT 4.21 4.60 - 6.20 03/30 L Specimen Type: BLOOD Comment: Automated Differentia l Performed Ordering Provider: MIKO JOHNSON Report Released Date/Time: Feb 24, 2025 09:47 AM Reporting Lab: [facility] [address] Performing Lab: [facility] [address] [place] [facility] CBC & DIFF HEMOGLOBIN [MASS/VOLU ME] IN BLOOD 13.0 g/dL 13.5 - 17.9 03/30 L Specimen Type: BLOOD Comment: Automated Differentia l Performed Ordering Provider: MIKO JOHNSON Report Released Date/Time: Feb 24, 2025 09:47 AM Reporting Lab: [facility] [address] Performing Lab: [facility] [address] [place] [facility] CBC & DIFF HEMATOCRIT [VOLUME FRACTION] OF BLOOD BY AUTOMATED COUNT 38.9 41.0 - 54.0 03/30 L Specimen Type: BLOOD Comment: Automated Differentia l Performed Ordering Provider: MIKO JOHNSON Report Released Date/Time: Feb 24, 2025 09:47 AM Reporting Lab: [facility] [address] Performing Lab: [facility] [address] [place] [facility] CBC & DIFF MCV [ENTITIC VOLUME] BY AUTOMATED COUNT 92.4 fL 80.0 - 100.0 03/30 Specimen Type: BLOOD Comment: Automated Differentia l Performed Ordering Provider: MIKO JOHNSON Report Released Date/Time: Feb 24, 2025 09:47 AM Reporting Lab: [facility] [address] Performing Lab: [facility] [address] [place] [facility] CBC & DIFF MCH [ENTITIC MASS] BY AUTOMATED COUNT 30.9 pg 27.0 - 33.0 03/30 Specimen Type: BLOOD Comment: Automated Differentia l Performed Ordering Provider: MIKO JOHNSON Report Released Date/Time: Feb 24, 2025 09:47 AM Reporting Lab: [facility] [address] Performing Lab: [facility] [address] [place] [facility] CBC & DIFF MCHC [MASS/VOLU ME] BY AUTOMATED COUNT 33.4 g/dL 32.0 - 37.5 03/30 Specimen Type: BLOOD Comment: Automated Differentia l Performed Ordering Provider: MIKO OJHNSON Report Released Date/Time: Feb 24, 2025 09:47 AM Reporting Lab: [facility] [address] Performing Lab: [facility] [address] [place] [facility] CBC & DIFF PLATELETS [#/VOLUME] IN BLOOD BY AUTOMATED COUNT 211 150 - 400 03/30 Specimen Type: BLOOD Comment: Automated Differentia l Performed Ordering Provider: MIKO JOHNSON Report Released Date/Time: Feb 24, 2025 09:47 AM Reporting Lab: [facility] [address] Performing Lab: [facility] [address] [place] [facility] CBC & DIFF PLATELET MEAN VOLUME [ENTITIC VOLUME] IN BLOOD BY AUTOMATED COUNT 10.3 fL 9.1 - 13.0 03/30 Specimen Type: BLOOD Comment: Automated Differentia l Performed Ordering Provider: MIKO JOHNSON Report Released Date/Time: Feb 24, 2025 09:47 AM Reporting Lab: [facility] [address] Performing Lab: [facility] [address] [place] [facility] CBC & DIFF NEUTROPHIL S/100 LEUKOCYTES IN BLOOD BY MANUAL COUNT 68.8 40.0 - 80.0 03/30 Specimen Type: BLOOD Comment: Automated Differentia l Performed Ordering Provider: MIKO JOHNSON Report Released Date/Time: Feb 24, 2025 09:47 AM Reporting Lab: [facility] [address] Performing Lab: [facility] [address] [place] [facility] CBC & DIFF LYMPHOCYTE S/100 LEUKOCYTES IN BLOOD BY MANUAL COUNT 19.4 15.0 - 45.0 03/30 Specimen Type: BLOOD Comment: Automated Differentia l Performed Ordering Provider: MIKO JOHNSON Report Released Date/Time: Feb 24, 2025 09:47 AM Reporting Lab: [facility] [address] Performing Lab: [facility] [address] [place] [facility] CBC & DIFF MONOCYTES/ 100 LEUKOCYTES IN BLOOD BY AUTOMATED COUNT 7.9 2.0 - 12.0 03/30 Specimen Type: BLOOD Comment: Automated Differentia l Performed Ordering Provider: MIKO JOHNSON Report Released Date/Time: Feb 24, 2025 09:47 AM Reporting Lab: [facility] [address] Performing Lab: [facility] [address] [place] [facility] CBC & DIFF EOSINOPHIL S/100 LEUKOCYTES IN BLOOD BY AUTOMATED COUNT 3.5 0.0 - 6.0 03/30 Specimen Type: BLOOD Comment: Automated Differentia l Performed Ordering Provider: MIKO JOHNSON Report Released Date/Time: Feb 24, 2025 09:47 AM Reporting Lab: [facility] [address] Performing Lab: [facility] [address] [place] [facility] CBC & DIFF BASOPHILS/ 100 LEUKOCYTES IN BLOOD BY MANUAL COUNT 0.3 0.0 - 2.0 03/30 Specimen Type: BLOOD Comment: Automated Differentia l Performed Ordering Provider: MIKO JOHNSON Report Released Date/Time: Feb 24, 2025 09:47 AM Reporting Lab: [facility] [address] Performing Lab: [facility] [address] [place] [facility] CBC & DIFF ERYTHROCYT E DISTRIBUTI ON WIDTH [RATIO] BY AUTOMATED COUNT 13.5 11.5 - 14.5 03/30 Specimen Type: BLOOD Comment: Automated Differentia l Performed Ordering Provider: MIKO JOHNSON Report Released Date/Time: Feb 24, 2025 09:47 AM Reporting Lab: [facility] [address] Performing Lab: [facility] [address] [place] [facility] CBC & DIFF LYMPHOCYTE S [#/VOLUME] IN BLOOD BY AUTOMATED COUNT 1.4 1.0 - 4.0 03/30 Specimen Type: BLOOD Comment: Automated Differentia l Performed Ordering Provider: MIKO JOHNSON Report Released Date/Time: Feb 24, 2025 09:47 AM Reporting Lab: [facility] [address] Performing Lab: [facility] [address] [place] [facility] CBC & DIFF MONOCYTES [#/VOLUME] IN BLOOD BY AUTOMATED COUNT 0.6 0.1 - 1.0 03/30 Specimen Type: BLOOD Comment: Automated Differentia l Performed Ordering Provider: MIKO JOHNSON Report Released Date/Time: Feb 24, 2025 09:47 AM Reporting Lab: [facility] [address] Performing Lab: [facility] [address] [place] [facility] CBC & DIFF NEUTROPHIL S [#/VOLUME] IN BLOOD BY AUTOMATED COUNT 4.9 2.0 - 7.7 03/30 Specimen Type: BLOOD Comment: Automated Differentia l Performed Ordering Provider: MIKO JOHNSON Report Released Date/Time: Feb 24, 2025 09:47 AM Reporting Lab: [facility] [address] Performing Lab: [facility] [address] [place] [facility] CBC & DIFF EOSINOPHIL S [#/VOLUME] IN BLOOD BY AUTOMATED COUNT 0.3 0.0 - 0.5 03/30 Specimen Type: BLOOD Comment: Automated Differentia l Performed Ordering Provider: MIKO JOHNSON Report Released Date/Time: Feb 24, 2025 09:47 AM Reporting Lab: [facility] [address] Performing Lab: [facility] [address] [place] [facility] CBC & DIFF BASOPHILS [#/VOLUME] IN BLOOD BY AUTOMATED COUNT 0.0 0.0 - 0.2 03/30 Specimen Type: BLOOD Comment: Automated Differentia l Performed Ordering Provider: MIKO JOHNSON Report Released Date/Time: Feb 24, 2025 09:47 AM Reporting Lab: [facility] [address] Performing Lab: [facility] [address] [place] [facility] CBC & DIFF IG(META,MY EMIR,PRO) 0.1 03/30 Specimen Type: BLOOD Comment: Automated Differentia l Performed Ordering Provider: MIKO JOHNSON Report Released Date/Time: Feb 24, 2025 09:47 AM Reporting Lab: [facility] [address] Performing Lab: [facility] [address] [place] [facility] CBC & DIFF IMMATURE GRANULOCYT ES [PRESENCE] IN BLOOD BY AUTOMATED COUNT 0.0 0.0 - 0.1 03/30 Specimen Type: BLOOD Comment: Automated Differentia l Performed Ordering Provider: MIKO JOHNSON Report Released Date/Time: Feb 24, 2025 09:47 AM Reporting Lab: [facility] [address] Performing Lab: [facility] [address] [place] [facility] COMPREHE NSIVE METABOLI C PANEL+MG CREATININE [MASS/VOLU ME] IN SERUM OR PLASMA 0.8 mg/dL 0.7 - 1.2 03/30 Specimen Type: PLASMA No comment entered. Ordering Provider: MIKO JOHNSON Report Released Date/Time: Feb 24, 2025 09:47 AM Reporting Lab: [facility] [address] Performing Lab: [facility] [address] [place] [facility] COMPREHE NSIVE METABOLI C PANEL+MG UREA NITROGEN [MASS/VOLU ME] IN SERUM OR PLASMA 17 mg/dL 8 - 26 03/30 Specimen Type: PLASMA No comment entered. Ordering Provider: MIKO JOHNSON Report Released Date/Time: Feb 24, 2025 09:47 AM Reporting Lab: [facility] [address] Performing Lab: [facility] [address] [place] [facility] COMPREHE NSIVE METABOLI C PANEL+MG GLUCOSE [MASS/VOLU ME] IN SERUM OR PLASMA 86 mg/dL 70 - 100 03/30 Specimen Type: PLASMA No comment entered. Ordering Provider: MIKO JOHNSON Report Released Date/Time: Feb 24, 2025 09:47 AM Reporting Lab: [facility] [address] Performing Lab: [facility] [address] [place] [facility] COMPREHE NSIVE METABOLI C PANEL+MG SODIUM [MOLES/VOL UME] IN SERUM OR PLASMA 138 mmol/L 136 - 145 03/30 Specimen Type: PLASMA No comment entered. Ordering Provider: MIKO JOHNSON Report Released Date/Time: Feb 24, 2025 09:47 AM Reporting Lab: [facility] [address] Performing Lab: [facility] [address] [place] [facility] COMPREHE NSIVE METABOLI C PANEL+MG POTASSIUM [MOLES/VOL UME] IN SERUM OR PLASMA 4.1 mmol/L 3.5 - 5.1 03/30 Specimen Type: PLASMA No comment entered. Ordering Provider: MIKO JOHNSON Report Released Date/Time: Feb 24, 2025 09:47 AM Reporting Lab: [facility] [address] Performing Lab: [facility] [address] [place] [facility] COMPREHE NSIVE METABOLI C PANEL+MG CHLORIDE [MOLES/VOL UME] IN SERUM OR PLASMA 104 mmol/L 98 - 107 03/30 Specimen Type: PLASMA No comment entered. Ordering Provider: MIKO JOHNSON Report Released Date/Time: Feb 24, 2025 09:47 AM Reporting Lab: [facility] [address] Performing Lab: [facility] [address] [place] [facility] COMPREHE NSIVE METABOLI C PANEL+MG CARBON DIOXIDE, TOTAL [MOLES/VOL UME] IN SERUM OR PLASMA 30 mmol/L 22 - 29 03/30 H Specimen Type: PLASMA No comment entered. Ordering Provider: MIKO JOHNSON Report Released Date/Time: Feb 24, 2025 09:47 AM Reporting Lab: [facility] [address] Performing Lab: [facility] [address] [place] [facility] COMPREHE NSIVE METABOLI C PANEL+MG CALCIUM [MASS/VOLU ME] IN SERUM OR PLASMA 8.9 mg/dL 8.4 - 10.2 03/30 Specimen Type: PLASMA No comment entered. Ordering Provider: MIKO JOHNSON Report Released Date/Time: Feb 24, 2025 09:47 AM Reporting Lab: [facility] [address] Performing Lab: [facility] [address] [place] [facility] COMPREHE NSIVE METABOLI C PANEL+MG PROTEIN [MASS/VOLU ME] IN SERUM OR PLASMA 6.6 g/dL 6.4 - 8.3 03/30 Specimen Type: PLASMA No comment entered. Ordering Provider: MIKO JOHNSON Report Released Date/Time: Feb 24, 2025 09:47 AM Reporting Lab: [facility] [address] Performing Lab: [facility] [address] [place] [facility] COMPREHE NSIVE METABOLI C PANEL+MG ALBUMIN [MASS/VOLU ME] IN SERUM OR PLASMA 4.1 g/dL 3.5 - 5.0 03/30 Specimen Type: PLASMA No comment entered. Ordering Provider: MIKO JOHNSON Report Released Date/Time: Feb 24, 2025 09:47 AM Reporting Lab: [facility] [address] Performing Lab: [facility] [address] [place] [facility] COMPREHE NSIVE METABOLI C PANEL+MG BILIRUBIN. TOTAL [MASS/VOLU ME] IN SERUM OR PLASMA 0.5 mg/dL 0.2 - 1.2 03/30 Specimen Type: PLASMA No comment entered. Ordering Provider: MIKO JOHNSON Report Released Date/Time: Feb 24, 2025 09:47 AM Reporting Lab: [facility] [address] Performing Lab: [facility] [address] [place] [facility] COMPREHE NSIVE METABOLI C PANEL+MG MAGNESIUM [MASS/VOLU ME] IN SERUM OR PLASMA 2.1 mg/dL 1.6 - 2.6 03/30 Specimen Type: PLASMA No comment entered. Ordering Provider: MIKO JOHNSON Report Released Date/Time: Feb 24, 2025 09:47 AM Reporting Lab: [facility] [address] Performing Lab: [facility] [address] [place] [facility] COMPREHE NSIVE METABOLI C PANEL+MG ANION GAP IN SERUM OR PLASMA 4 mmol/L 5 - 15 03/30 L Specimen Type: PLASMA No comment entered. Ordering Provider: MIKO JOHNSON Report Released Date/Time: Feb 24, 2025 09:47 AM Reporting Lab: [facility] [address] Performing Lab: [facility] [address] [place] [facility] COMPREHE NSIVE METABOLI C PANEL+MG ALKALINE PHOSPHATAS E [ENZYMATIC ACTIVITY/V OLUME] IN SERUM OR PLASMA 73 U/L 40 - 150 03/30 Specimen Type: PLASMA No comment entered. Ordering Provider: MIKO JOHNSON Report Released Date/Time: Feb 24, 2025 09:47 AM Reporting Lab: [facility] [address] Performing Lab: [facility] [address] [place] [facility] COMPREHE NSIVE METABOLI C PANEL+MG ALANINE AMINOTRANS FERASE [ENZYMATIC ACTIVITY/V OLUME] IN SERUM OR PLASMA 12 U/L <44 - 44 03/30 Specimen Type: PLASMA No comment entered. Ordering Provider: MIKO JOHNSON Report Released Date/Time: Feb 24, 2025 09:47 AM Reporting Lab: [facility] [address] Performing Lab: [facility] [address] [facility] COMPREHE NSIVE METABOLI C PANEL+MG ASPARTATE AMINOTRANS FERASE [ENZYMATIC ACTIVITY/V OLUME] IN SERUM OR PLASMA 22 U/L 11 - 34 03/30 Specimen Type: PLASMA No comment entered. Ordering Provider: MIKO JOHNSON Report Released Date/Time: Feb 24, 2025 09:47 AM Reporting Lab: [facility] [address] Performing Lab: [facility] [address] [facility] COMPREHE NSIVE METABOLI C PANEL+MG GLOMERULAR FILTRATION RATE/1.73 SQ M.PREDICTE D [VOLUME RATE/AREA] IN SERUM, PLASMA OR BLOOD BY CREATININE -BASED FORMULA (CKD-EPI 2020) 86 60 03/30 Specimen Type: PLASMA No comment entered. Ordering Provider: MIKO JOHNSON Report Released Date/Time: Feb 24, 2025 09:47 AM Reporting Lab: [facility] [address] Performing Lab: [facility] [address] [facility] HEMOGLOB IN A1C HEMOGLOBIN A1C/HEMOGL OBIN.TOTAL IN BLOOD 5.4 4.0 - 6.0 03/30 Specimen Type: BLOOD Comment: Values obtained from A1C measurement s can vary. For typical A1C assays, a reported value of 7.0 could actually be between 6.7 and 7.3 if measured by a reference method. A reported value of 9.0 could actually be between 8.7 and 9.3. Ref: [email or web address] [email or web address] Ordering Provider: MIKO JOHNSON Report Released Date/Time: Feb 24, 2025 09:47 AM Reporting Lab: [facility] [address] Performing Lab: [facility] [address] [place] [facility] LIPID PANEL,NO N-FASTIN G CHOLESTERO L [MASS/VOLU ME] IN SERUM OR PLASMA 185 mg/dL <199 - 199 03/30 Specimen Type: PLASMA No comment entered. Ordering Provider: MIKO JOHNSON Report Released Date/Time: Feb 24, 2025 09:47 AM Reporting Lab: [facility] [phone] Performing Lab: [facility] [phone] [place] [facility] LIPID PANEL,NO N-FASTIN G CHOLESTERO L IN HDL [MASS/VOLU ME] IN SERUM OR PLASMA 71 mg/dL 40 03/30 Specimen Type: PLASMA No comment entered. Ordering Provider: MIKO JOHNSON Report Released Date/Time: Feb 24, 2025 09:47 AM Reporting Lab: [facility] [phone] Performing Lab: [facility] [phone] [place] [facility] LIPID PANEL,NO N-FASTIN G CHOLESTERO L IN LDL [MASS/VOLU ME] IN SERUM OR PLASMA BY CALCULATIO N 103 mg/dL <99 - 99 03/30 H Specimen Type: PLASMA No comment entered. Ordering Provider: MIKO JOHNSON Report Released Date/Time: Feb 24, 2025 09:47 AM Reporting Lab: [facility] [phone] Performing Lab: [facility] [phone] [place] [facility] LIPID PANEL,NO N-FASTIN G CHOLESTERO L IN VLDL [MASS/VOLU ME] IN SERUM OR PLASMA BY CALCULATIO N 11 mg/dL <29 - 29 03/30 Specimen Type: PLASMA No comment entered. Ordering Provider: MIKO JOHNSON Report Released Date/Time: Feb 24, 2025 09:47 AM Reporting Lab: [facility] [phone] Performing Lab: [facility] [phone] [place] [facility] LIPID PANEL,NO N-FASTIN G CHOLESTERO L NON HDL [MASS/VOLU ME] IN SERUM OR PLASMA 114 mg/dL <129 - 129 03/30 Specimen Type: PLASMA No comment entered. Ordering Provider: MIKO JOHNSON Report Released Date/Time: Feb 24, 2025 09:47 AM Reporting Lab: [facility] [phone] Performing Lab: [facility] [phone] [place] [facility] LIPID PANEL,NO N-FASTIN G TRIGLYCERI DE [MASS/VOLU ME] IN SERUM OR PLASMA 54 mg/dL <149 - 149 03/30 Specimen Type: PLASMA No comment entered. Ordering Provider: MIKO JOHNSON Report Released Date/Time: Feb 24, 2025 09:47 AM Reporting Lab: [facility] [phone] Performing Lab: [facility] [phone] [place] [facility] ANTI-HEP C(EIA) HEPATITIS C VIRUS AB [PRESENCE] IN SERUM NEGATIVE 03/30 Specimen Type: SERUM Comment: Specimen received is PLASMA. Ordering Provider: MIKO JOHNSON Report Released Date/Time: Mar 30, 2025 10:44 AM Reporting Lab: [facility] [phone] Performing Lab: [facility] [phone] [place] [facility] IRON GROUP IRON [MASS/VOLU ME] IN SERUM OR PLASMA 84 ug/dL 65 - 175 03/30 Specimen Type: SERUM Comment: Specimen received is PLASMA. Ordering Provider: MIKO JOHNSON Report Released Date/Time: Mar 30, 2025 10:45 AM Reporting Lab: [facility] [phone] Performing Lab: [facility] [address] [place] [facility] IRON GROUP IRON BINDING CAPACITY [MASS/VOLU ME] IN SERUM OR PLASMA 316 ug/dL 250 - 425 03/30 Specimen Type: SERUM Comment: Specimen received is PLASMA. Ordering Provider: MIKO JONHSON Report Released Date/Time: Mar 30, 2025 10:45 AM Reporting Lab: [facility] [phone] Performing Lab: [facility] [phone] [place] [facility] IRON GROUP FERRITIN [MASS/VOLU ME] IN SERUM OR PLASMA 44.2 ng/mL 21.8 - 274.7 03/30 Specimen Type: SERUM Comment: Specimen received is PLASMA. Ordering Provider: MIKO JOHNSON Report Released Date/Time: Mar 30, 2025 10:45 AM Reporting Lab: [facility] [phone] Performing Lab: [facility] [phone] [place] [facility] IRON GROUP IRON SATURATION 27 20 - 50 03/30 Specimen Type: SERUM Comment: Specimen received is PLASMA. Ordering Provider: MIKO JOHNSON Report Released Date/Time: Mar 30, 2025 10:45 AM Reporting Lab: [facility] [phone] Performing Lab: [facility] [phone] [place] [facility] IRON GROUP TRANSFERRI N [MASS/VOLU ME] IN SERUM OR PLASMA 253 mg/dL 163 - 382 03/30 Specimen Type: SERUM Comment: Specimen received is PLASMA. Ordering Provider: MIKO JOHNSON Report Released Date/Time: Mar 30, 2025 10:45 AM Reporting Lab: [facility] [phone] Performing Lab: [facility] [address] [place] [facility] BASIC METABOLI C PANEL+MG CREATININE [MASS/VOLU ME] IN SERUM OR PLASMA 0.9 mg/dL 0.7 - 1.2 09/17 Specimen Type: PLASMA No comment entered. Ordering Provider: CRISTIANA RANDALL Report Released Date/Time: Sep 20, 2022 08:34 AM Reporting Lab: [facility] [phone] Performing Lab: [facility] [address] [place] [facility] BASIC METABOLI C PANEL+MG UREA NITROGEN [MASS/VOLU ME] IN SERUM OR PLASMA 19 mg/dL 8 - 26 09/17 Specimen Type: PLASMA No comment entered. Ordering Provider: CRISTIANA RANDALL Report Released Date/Time: Sep 20, 2022 08:34 AM Reporting Lab: [facility] [phone] Performing Lab: [facility] [phone] [place] [facility] BASIC METABOLI C PANEL+MG GLUCOSE [MASS/VOLU ME] IN SERUM OR PLASMA 101 mg/dL 70 - 100 09/17 H Specimen Type: PLASMA No comment entered. Ordering Provider: CRISTIANA RANDALL Report Released Date/Time: Sep 20, 2022 08:34 AM Reporting Lab: [facility] [phone] Performing Lab: [facility] [phone] [place] [facility] BASIC METABOLI C PANEL+MG SODIUM [MOLES/VOL UME] IN SERUM OR PLASMA 138 mmol/L 136 - 145 09/17 Specimen Type: PLASMA No comment entered. Ordering Provider: CRISTIANA RANDALL Report Released Date/Time: Sep 20, 2022 08:34 AM Reporting Lab: [facility] [phone] Performing Lab: [facility] [phone] [place] [facility] BASIC METABOLI C PANEL+MG POTASSIUM [MOLES/VOL UME] IN SERUM OR PLASMA 4.1 mmol/L 3.5 - 5.1 09/17 Specimen Type: PLASMA No comment entered. Ordering Provider: CRISTIANA RANDALL Report Released Date/Time: Sep 20, 2022 08:34 AM Reporting Lab: [facility] [phone] Performing Lab: [facility] [phone] [place] [facility] BASIC METABOLI C PANEL+MG CHLORIDE [MOLES/VOL UME] IN SERUM OR PLASMA 102 mmol/L 98 - 107 09/17 Specimen Type: PLASMA No comment entered. Ordering Provider: CRISTIANA RANDALL Report Released Date/Time: Sep 20, 2022 08:34 AM Reporting Lab: [facility] [phone] Performing Lab: [facility] [phone] [place] [facility] BASIC METABOLI C PANEL+MG CARBON DIOXIDE, TOTAL [MOLES/VOL UME] IN SERUM OR PLASMA 29 mmol/L 22 - 29 09/17 Specimen Type: PLASMA No comment entered. Ordering Provider: CRISTIANA RANDALL Report Released Date/Time: Sep 20, 2022 08:34 AM Reporting Lab: [facility] [phone] Performing Lab: [facility] [phone] [place] [facility] BASIC METABOLI C PANEL+MG CALCIUM [MASS/VOLU ME] IN SERUM OR PLASMA 9.4 mg/dL 8.4 - 10.2 09/17 Specimen Type: PLASMA No comment entered. Ordering Provider: CRISTIANA RANDALL Report Released Date/Time: Sep 20, 2022 08:34 AM Reporting Lab: [facility] [phone] Performing Lab: [facility] [phone] [place] [facility] BASIC METABOLI C PANEL+MG MAGNESIUM [MASS/VOLU ME] IN SERUM OR PLASMA 2.2 mg/dL 1.6 - 2.6 09/17 Specimen Type: PLASMA No comment entered. Ordering Provider: CRISTIANA RANDALL Report Released Date/Time: Sep 20, 2022 08:34 AM Reporting Lab: [facility] [phone] Performing Lab: [facility] [address] [place] [facility] BASIC METABOLI C PANEL+MG ANION GAP IN SERUM OR PLASMA 7 mmol/L 5 - 15 09/17 Specimen Type: PLASMA No comment entered. Ordering Provider: CRISTIANA RANDALL Report Released Date/Time: Sep 20, 2022 08:34 AM Reporting Lab: [facility] [address] Performing Lab: [facility] [phone] [place] [facility] BASIC METABOLI C PANEL+MG GLOMERULAR FILTRATION RATE/1.73 SQ M.PREDICTE D [VOLUME RATE/AREA] IN SERUM, PLASMA OR BLOOD BY CREATININE -BASED FORMULA (CKD-EPI 2020) 84 60 09/17 Specimen Type: PLASMA No comment entered. Ordering Provider: CRISTIANA RANDALL Report Released Date/Time: Sep 20, 2022 08:34 AM Reporting Lab: [facility] [phone] Performing Lab: [facility] [address] [facility] Vital Signs Combined list of inpatient and outpatient Vital Signs from Department of [facility] and [facility] Affairs, ranging from 12 months to all on record, depending upon the facility. Vital Sign Value Date Comments Source SYSTOLIC BLOOD PRESSURE 146 03/30/2025 09:48:28 [facility] DIASTOLIC BLOOD PRESSURE 73 03/30/2025 09:48:28 [facility] PULSE OXIMETRY 99 % 03/30/2025 09:48:28 [facility] 163.9 03/30/2025 09:48:28 [facility] BMI 23 kg/m2 03/30/2025 09:48:28 [facility] HEIGHT 70.25 03/30/2025 09:48:28 [facility] TEMPERATURE 97.8 03/30/2025 09:48:28 [facility] PULSE 64 03/30/2025 09:48:28 [facility] RESPIRATION 12 03/30/2025 09:48:28 [facility] Encounters Combined list of: 1) Encounters from 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 Location Location Details Encounter Type Encounter Number Reason For Visit Attending Provider ADM Date DC Date Status Disposition Source [facility] OFFICE O/P EST HI 40 MIN [id number] Diagnos is: ICD-10- CM E78.5 Hyperli pidemia , unspeci fied MIKO SANCHEZ 03/30 [facility] Social History Combined list of available smoking, tobacco, and other social history from Department of Defense and Veterans Affairs facilities. Social History Type Response Date Comment Sourc e Tobacco smoking status NHIS VA-TOBACCO USE FORMER CIGARETTES 03/30/2025 [facility] History of tobacco use [place]-TOBACCO USE SO ME DAYS OTHER TYPE 03/30/2025 [facility] History of tobacco use VA-TOBACCO FORMER USER 09/16/2023 [facility] History of tobacco use MO-TOBACCO FORMER USER 09/20/2022 [facility] History of tobacco use MO-TOBACCO FORMER USER 04/02/2021 [facility] History of tobacco use MO-TOBACCO QUIT 1 5 YRS OR MORE 08/16/2019 [facility] Advance Directives List of completed, amended, or rescinded Advance Directives on record at Department of [facility] Affairs facilities. An actual copy of the Directive is not included. Date Advance Directive Provider Source 04/02/2004 ADVANCE DIRECTIVE ABRAN SESAY [facility]
--- OUTSIDE RECORDS SUMMARY | 2025-03-30 05:47 | XMS_ITS | Continuity of Care Document ---
Author Name [facility] Organization [facility] Care Team Providers Care Photo Retoucher Name Role Phone [facility] Unavailable Unavailable Problems Combined list of problems from [facility] and [facility] facilities. It does not include entries that were removed or entered in error. Problem Status Onset Date Problem Type Date of Resolution Comments Source Allergic Rhinitis ([facility] [id number]) Active Condition Mar 30, 2025 Entered By: MIKO JOHNSON Comment: Sinus surgery Nov 2024, long recovery but good result [facility] Erectile Dysfunction ([facility] [id number]) Active Condition [facility] HTN - Hypertension ([facility] [id number]) Active Condition [facility] Hyperlipidemia ([facility] [id number]) Active Condition [facility] Nocturia due to benign prostatic hypertrophy Active Condition [facility] Tear of left rotator cuff Active Condition [facility] Diagnosis: ICD-10-CM E78.5 Hyperlipidemia, unspecified Active Diagnosis [facility] Medications Combined list of outpatient medications from [facility] and [facility] facilities.Medications provided include 1) outpatient medications from the last 15 months, and 2) patient-reported medications. Medication Details Route Status Patient Instructions Prescription Expires Prescription Number Last Dispense Date Ordering Provider Order Date Order Qty Source CALCIUM POLYCARBOPH IL TAB TAKE ACTIVE TRAUT,HERACLIO HARD L 2020 [facility] DOCUSATE NA 100MG CAP TAKE 2 CAPSULES BY MOUTH PRN ORAL ACTIVE TRAUT,HERACLIO HARD L 2020 [facility] FINASTERIDE 5MG TAB TAKE ONE TABLET BY MOUTH EVERY DAY ORAL ACTIVE TRAUT,HERACLIO HARD L 2020 [facility] FLUTICASONE PROPIONATE 50MCG/SPRAY SOLN,NASAL, 16GM SPRAY 2 SPRAYS IN EACH NOSTRIL EVERY DAY NEEDED NASAL ACTIVE TRAUT,HERACLIO HARD L 2019 [facility] HYDROCHLORO THIAZIDE 25MG TAB TAKE ONE TABLET BY MOUTH EVERY DAY ORAL ACTIVE TRAUT,HERACLIO HARD L 2019 [facility] LIDOCAINE 5% PATCH APPLY 1 PATCH EVERY DAY NEEDED FOR PAIN WEAR FOR 12 HOURS AND THEN REMOVE TOPICA L ACTIVE 02/25/2026 [id number] DONG-CASSANDRA JONES 2024 30 [facility] LIDOCAINE 5% PATCH APPLY 1 PATCH TOPICALL Y EVERY DAY NEEDED FOR PAIN WEAR FOR 12 HOURS AND THEN REMOVE TOPICA L 09/17/2024 [id number] BRADLEYANDREW SOLIZ Leonardo 2023 30 [facility] LORATADINE 10MG TAB TAKE ONE TABLET BY MOUTH EVERY DAY ORAL ACTIVE DONG-CASSANDRA JONES 2024 [facility] METHYLCELLU LOSE TAB TAKE BY MOUTH ORAL ACTIVE TRAUT,HERACLIO HARD L 2020 [facility] MULTIVITS W/MINERALS( NO VIT K) TAB TAKE ACTIVE TRAUT,HERACLIO HARD L 2020 [facility] PSYLLIUM PWDR,ORAL TAKE 1 TABLESPO ON BY MOUTH EVERY DAY MIXED IN JUICE OR WATER DIRECTED TO HELP REGULATE STOOLS TO HELP HEMORRHO IDS. ORAL ACTIVE 02/25/2026 [id number] CASSANDRA MAIN 2024 390 [facility] SIMVASTATIN 20MG TAB TAKE ONE TABLET BY MOUTH AT BEDTIME ORAL ACTIVE DONG-CASSANDRA JONES 2024 [facility] TADALAFIL TAB TAKE 5MG BY MOUTH PRN ORAL ACTIVE TRAUT,HERACLIO HARD L 2020 [facility] TAMSULOSIN HCL 0.4MG CAP TAKE 1 CAPSULE BY MOUTH AT BEDTIME ORAL ACTIVE TRAUT,HERACLIO HARD L 2020 [facility] Immunizations Combined list of available immunizations from the Department of Defense and [facility] Affairs facilities. Immunization Series Date Given Administered By Site Reaction Lot Number CVX Code Drug Athletic Monitor Status Comments Source ZOSTER RECOMBINANT 2 2022 YAZMIN DE OLIVEIRA LEFT DELTO ID [id number] 187 complet ed ADMINISTE [place], @@ ENTER DILUENT LOT# HERE [id number] [facility] INFLUENZA, HIGH-DOSE, QUADRIVALENT 2021 197 complet ed HISTORICA L INFORMATI ON - FROM OTHER REGISTRY, [facility] INFLUENZA, UNSPECIFIED FORMULATION 2021 88 complet ed HISTORICA L INFORMATI ON - FROM OTHER REGISTRY, [facility] INFLUENZA, HIGH-DOSE, QUADRIVALENT 2020 197 complet ed HISTORICA L INFORMATI ON - FROM OTHER REGISTRY, [facility] COVID-19 (PFIZER), MRNA, LNP-S, PF, 30 MCG/0.3 ML DOSE 2020 208 complet ed HISTORICA L INFORMATI ON - FROM OTHER REGISTRY, [facility] COVID-19 (PFIZER), MRNA, LNP-S, PF, 30 MCG/0.3 ML DOSE 2 2020 208 complet ed PFR; [id number]; 1 [facility] COVID-19 (PFIZER), MRNA, LNP-S, PF, 30 MCG/0.3 ML DOSE 1 2020 208 complet ed PFR; [id number]; 1 [facility] ZOSTER RECOMBINANT 2020 187 complet ed HISTORICA L INFORMATI ON - FROM OTHER REGISTRY, [facility] INFLUENZA, INJECTABLE, QUADRIVALENT 2019 158 complet ed HISTORICA L INFORMATI ON - FROM OTHER REGISTRY, [facility] INFLUENZA, UNSPECIFIED FORMULATION 2019 88 complet ed [facility] INFLUENZA, HIGH DOSE SEASONAL 2018 135 complet ed HISTORICA L INFORMATI ON - FROM OTHER REGISTRY, [facility] INFLUENZA, HIGH DOSE SEASONAL 2018 135 complet ed [facility] PNEUMOCOCCAL CONJUGATE PCV 13 2018 133 complet ed [facility] INFLUENZA, TRIVALENT, ADJUVANTED 2017 168 complet ed HISTORICA L INFORMATI ON - FROM OTHER REGISTRY, [facility] INFLUENZA, TRIVALENT, ADJUVANTED 2016 168 complet ed HISTORICA L INFORMATI ON - FROM OTHER REGISTRY, [facility] INFLUENZA, HIGH DOSE SEASONAL 2015 135 complet ed HISTORICA L INFORMATI ON - FROM OTHER REGISTRY, [facility] INFLUENZA, HIGH DOSE SEASONAL 2014 135 complet ed HISTORICA L INFORMATI ON - FROM OTHER REGISTRY, [facility] PNEUMOCOCCAL CONJUGATE PCV 13 2014 133 complet ed HISTORICA L INFORMATI ON - FROM OTHER REGISTRY, [facility] TDAP 2014 115 complet ed HISTORICA L INFORMATI ON - FROM OTHER REGISTRY, [facility] INFLUENZA, INJECTABLE, QUADRIVALENT, PRESERVATIVE FREE 2013 150 complet ed HISTORICA L INFORMATI ON - FROM OTHER REGISTRY, [facility] INFLUENZA, SEASONAL, INJECTABLE 2012 141 complet ed HISTORICA L INFORMATI ON - FROM OTHER REGISTRY, [facility] INFLUENZA, SEASONAL, INJECTABLE 2011 141 complet ed HISTORICA L INFORMATI ON - FROM OTHER REGISTRY, [facility] INFLUENZA, SEASONAL, INJECTABLE 2010 141 complet ed HISTORICA L INFORMATI ON - FROM OTHER REGISTRY, [facility] ZOSTER LIVE 2009 121 complet ed HISTORICA L INFORMATI ON - FROM OTHER REGISTRY, [facility] INFLUENZA, SEASONAL, INJECTABLE, PRESERVATIVE FREE 2009 140 complet ed HISTORICA L INFORMATI ON - FROM OTHER REGISTRY, [facility] INFLUENZA, INJECTABLE, QUADRIVALENT, PRESERVATIVE FREE 2009 150 complet ed HISTORICA L INFORMATI ON - FROM OTHER REGISTRY, [facility] NOVEL INFLUENZA-H1N 1-09, ALL FORMULATIONS 2009 128 complet ed HISTORICA L INFORMATI ON - FROM OTHER REGISTRY, [facility] PNEUMOCOCCAL POLYSACCHARID E PPV23 2005 33 complet ed [facility]ISTORICA L INFORMATI ON - FROM OTHER REGISTRY, [facility] TD (ADULT), 2 LF TETANUS TOXOID, PRESERVATIVE FREE, ADSORBED 2004 09 complet ed HISTORICA L INFORMATI ON - FROM OTHER REGISTRY, [facility] INFLUENZA (HISTORICAL) 2003 88 complet ed [facility] PNEUMOCOCCAL, UNSPECIFIED FORMULATION 2003 NONE 109 complet ed [facility] INFLUENZA (HISTORICAL) 2002 88 complet ed [facility] TD(ADULT) UNSPECIFIED FORMULATION 1998 139 complet ed [facility] Results Combined list of recent chemistry, hematology [...] Feb 24, 2025 09:47 AM Reporting Lab: [facility] [address] Performing Lab: [facility] [address] [place] [facility] CBC & DIFF ERYTHROCYT ES [#/VOLUME] IN BLOOD BY AUTOMATED COUNT 4.21 4.60 - 6.20 03/30 L Specimen Type: BLOOD Comment: Automated Differentia l Performed Ordering Provider: MIKO JOHNSON Report Released Date/Time: Feb 24, 2025 09:47 AM Reporting Lab: [facility] [address] Performing Lab: [facility] [address] [place] [facility] CBC & DIFF HEMOGLOBIN [MASS/VOLU ME] IN BLOOD 13.0 g/dL 13.5 - 17.9 03/30 L Specimen Type: BLOOD Comment: Automated Differentia l Performed Ordering Provider: MIKO JOHNSON Report Released Date/Time: Feb 24, 2025 09:47 AM Reporting Lab: [facility] [address] Performing Lab: [facility] [address] [place] [facility] CBC & DIFF HEMATOCRIT [VOLUME FRACTION] OF BLOOD BY AUTOMATED COUNT 38.9 41.0 - 54.0 03/30 L Specimen Type: BLOOD Comment: Automated Differentia l Performed Ordering Provider: MIKO JOHNSON Report Released Date/Time: Feb 24, 2025 09:47 AM Reporting Lab: [facility] [address] Performing Lab: [facility] [address] [place] [facility] CBC & DIFF MCV [ENTITIC VOLUME] BY AUTOMATED COUNT 92.4 fL 80.0 - 100.0 03/30 Specimen Type: BLOOD Comment: Automated Differentia l Performed Ordering Provider: MIKO JOHNSON Report Released Date/Time: Feb 24, 2025 09:47 AM Reporting Lab: [facility] [address] Performing Lab: [facility] [address] [place] [facility] CBC & DIFF MCH [ENTITIC MASS] BY AUTOMATED COUNT 30.9 pg 27.0 - 33.0 03/30 Specimen Type: BLOOD Comment: Automated Differentia l Performed Ordering Provider: MIKO JOHNSON Report Released Date/Time: Feb 24, 2025 09:47 AM Reporting Lab: [facility] [address] Performing Lab: [facility] [address] [place] [facility] CBC & DIFF MCHC [MASS/VOLU ME] BY AUTOMATED COUNT 33.4 g/dL 32.0 - 37.5 03/30 Specimen Type: BLOOD Comment: Automated Differentia l Performed Ordering Provider: MIKO JOHNSON Report Released Date/Time: Feb 24, 2025 09:47 AM Reporting Lab: [facility] [address] Performing Lab: [facility] [address] [place] [facility] CBC & DIFF PLATELETS [#/VOLUME] IN BLOOD BY AUTOMATED COUNT 211 150 - 400 03/30 Specimen Type: BLOOD Comment: Automated Differentia l Performed Ordering Provider: MIKO JOHNSON Report Released Date/Time: Feb 24, 2025 09:47 AM Reporting Lab: [facility] [address] Performing Lab: [facility] [address] [place] [facility] CBC & DIFF PLATELET MEAN VOLUME [ENTITIC VOLUME] IN BLOOD BY AUTOMATED COUNT 10.3 fL 9.1 - 13.0 03/30 Specimen Type: BLOOD Comment: Automated Differentia l Performed Ordering Provider: MIKO JOHNSON Report Released Date/Time: Feb 24, 2025 09:47 AM Reporting Lab: [facility] [address] Performing Lab: [facility] [address] [place] [facility] CBC & DIFF NEUTROPHIL S/100 LEUKOCYTES IN BLOOD BY MANUAL COUNT 68.8 40.0 - 80.0 03/30 Specimen Type: BLOOD Comment: Automated Differentia l Performed Ordering Provider: MIKO JOHNSON Report Released Date/Time: Feb 24, 2025 09:47 AM Reporting Lab: [facility] [address] Performing Lab: [facility] [address] [place] [facility] CBC & DIFF LYMPHOCYTE S/100 LEUKOCYTES IN BLOOD BY MANUAL COUNT 19.4 15.0 - 45.0 03/30 Specimen Type: BLOOD Comment: Automated Differentia l Performed Ordering Provider: MIKO JOHNSON Report Released Date/Time: Feb 24, 2025 09:47 AM Reporting Lab: [facility] [address] Performing Lab: [facility] [address] [place] [facility] CBC & DIFF MONOCYTES/ 100 LEUKOCYTES IN BLOOD BY AUTOMATED COUNT 7.9 2.0 - 12.0 03/30 Specimen Type: BLOOD Comment: Automated Differentia l Performed Ordering Provider: MIKO JOHNSON Report Released Date/Time: Feb 24, 2025 09:47 AM Reporting Lab: [facility] [address] Performing Lab: [facility] [address] [place] [facility] CBC & DIFF EOSINOPHIL S/100 LEUKOCYTES IN BLOOD BY AUTOMATED COUNT 3.5 0.0 - 6.0 03/30 Specimen Type: BLOOD Comment: Automated Differentia l Performed Ordering Provider: MIKO JOHNSON Report Released Date/Time: Feb 24, 2025 09:47 AM Reporting Lab: [facility] [address] Performing Lab: [facility] [address] [place] [facility] CBC & DIFF BASOPHILS/ 100 LEUKOCYTES IN BLOOD BY MANUAL COUNT 0.3 0.0 - 2.0 03/30 Specimen Type: BLOOD Comment: Automated Differentia l Performed Ordering Provider: MIKO JOHNSON Report Released Date/Time: Feb 24, 2025 09:47 AM Reporting Lab: [facility] [address] Performing Lab: [facility] [address] [place] [facility] CBC & DIFF ERYTHROCYT E DISTRIBUTI ON WIDTH [RATIO] BY AUTOMATED COUNT 13.5 11.5 - 14.5 03/30 Specimen Type: BLOOD Comment: Automated Differentia l Performed Ordering Provider: MIKO JOHNSON Report Released Date/Time: Feb 24, 2025 09:47 AM Reporting Lab: [facility] [address] Performing Lab: [facility] [address] [place] [facility] CBC & DIFF LYMPHOCYTE S [#/VOLUME] IN BLOOD BY AUTOMATED COUNT 1.4 1.0 - 4.0 03/30 Specimen Type: BLOOD Comment: Automated Differentia l Performed Ordering Provider: MIKO JOHNSON Report Released Date/Time: Feb 24, 2025 09:47 AM Reporting Lab: [facility] [address] Performing Lab: [facility] [address] [place] [facility] CBC & DIFF MONOCYTES [#/VOLUME] IN BLOOD BY AUTOMATED COUNT 0.6 0.1 - 1.0 03/30 Specimen Type: BLOOD Comment: Automated Differentia l Performed Ordering Provider: MIKO JOHNSON Report Released Date/Time: Feb 24, 2025 09:47 AM Reporting Lab: [facility] [address] Performing Lab: [facility] [address] [place] [facility] CBC & DIFF NEUTROPHIL S [#/VOLUME] IN BLOOD BY AUTOMATED COUNT 4.9 2.0 - 7.7 03/30 Specimen Type: BLOOD Comment: Automated Differentia l Performed Ordering Provider: MIKO JOHNSON Report Released Date/Time: Feb 24, 2025 09:47 AM Reporting Lab: [facility] [address] Performing Lab: [facility] [address] [place] [facility] CBC & DIFF EOSINOPHIL S [#/VOLUME] IN BLOOD BY AUTOMATED COUNT 0.3 0.0 - 0.5 03/30 Specimen Type: BLOOD Comment: Automated Differentia l Performed Ordering Provider: MIKO JOHNSON Report Released Date/Time: Feb 24, 2025 09:47 AM Reporting Lab: [facility] [address] Performing Lab: [facility] [address] [place] [facility] CBC & DIFF BASOPHILS [#/VOLUME] IN BLOOD BY AUTOMATED COUNT 0.0 0.0 - 0.2 03/30 Specimen Type: BLOOD Comment: Automated Differentia l Performed Ordering Provider: MIKO JOHNSON Report Released Date/Time: Feb 24, 2025 09:47 AM Reporting Lab: [facility] [address] Performing Lab: [facility] [address] [place] [facility] CBC & DIFF IG(META,MY EMIR,PRO) 0.1 03/30 Specimen Type: BLOOD Comment: Automated Differentia l Performed Ordering Provider: MIKO JOHNSON Report Released Date/Time: Feb 24, 2025 09:47 AM Reporting Lab: [facility] [address] Performing Lab: [facility] [address] [place] [facility] CBC & DIFF IMMATURE GRANULOCYT ES [PRESENCE] IN BLOOD BY AUTOMATED COUNT 0.0 0.0 - 0.1 03/30 Specimen Type: BLOOD Comment: Automated Differentia l Performed Ordering Provider: MIKO JOHNSON Report Released Date/Time: Feb 24, 2025 09:47 AM Reporting Lab: [facility] [address] Performing Lab: [facility] [address] [place] [facility] COMPREHE NSIVE METABOLI C PANEL+MG CREATININE [MASS/VOLU ME] IN SERUM OR PLASMA 0.8 mg/dL 0.7 - 1.2 03/30 Specimen Type: PLASMA No comment entered. Ordering Provider: MIKO JOHNSON Report Released Date/Time: Feb 24, 2025 09:47 AM Reporting Lab: [facility] [address] Performing Lab: [facility] [address] [place] [facility] COMPREHE NSIVE METABOLI C PANEL+MG UREA NITROGEN [MASS/VOLU ME] IN SERUM OR PLASMA 17 mg/dL 8 - 26 03/30 Specimen Type: PLASMA No comment entered. Ordering Provider: MIKO JOHNSON Report Released Date/Time: Feb 24, 2025 09:47 AM Reporting Lab: [facility] [address] Performing Lab: [facility] [address] [place] [facility] COMPREHE NSIVE METABOLI C PANEL+MG GLUCOSE [MASS/VOLU ME] IN SERUM OR PLASMA 86 mg/dL 70 - 100 03/30 Specimen Type: PLASMA No comment entered. Ordering Provider: MIKO JOHNSON Report Released Date/Time: Feb 24, 2025 09:47 AM Reporting Lab: [facility] [address] Performing Lab: [facility] [address] [place] [facility] COMPREHE NSIVE METABOLI C PANEL+MG SODIUM [MOLES/VOL UME] IN SERUM OR PLASMA 138 mmol/L 136 - 145 03/30 Specimen Type: PLASMA No comment entered. Ordering Provider: MIKO JOHNSON Report Released Date/Time: Feb 24, 2025 09:47 AM Reporting Lab: [facility] [address] Performing Lab: [facility] [address] [place] [facility] COMPREHE NSIVE METABOLI C PANEL+MG POTASSIUM [MOLES/VOL UME] IN SERUM OR PLASMA 4.1 mmol/L 3.5 - 5.1 03/30 Specimen Type: PLASMA No comment entered. Ordering Provider: MIKO JOHNSON Report Released Date/Time: Feb 24, 2025 09:47 AM Reporting Lab: [facility] [address] Performing Lab: [facility] [address] [place] [facility] COMPREHE NSIVE METABOLI C PANEL+MG CHLORIDE [MOLES/VOL UME] IN SERUM OR PLASMA 104 mmol/L 98 - 107 03/30 Specimen Type: PLASMA No comment entered. Ordering Provider: MIOK JOHNSON Report Released Date/Time: Feb 24, 2025 09:47 AM Reporting Lab: [facility] [address] Performing Lab: [facility] [address] [place] [facility] COMPREHE NSIVE METABOLI C PANEL+MG CARBON DIOXIDE, TOTAL [MOLES/VOL UME] IN SERUM OR PLASMA 30 mmol/L 22 - 29 03/30 H Specimen Type: PLASMA No comment entered. Ordering Provider: MIKO JOHNSON Report Released Date/Time: Feb 24, 2025 09:47 AM Reporting Lab: [facility] [address] Performing Lab: [facility] [address] [place] [facility] COMPREHE NSIVE METABOLI C PANEL+MG CALCIUM [MASS/VOLU ME] IN SERUM OR PLASMA 8.9 mg/dL 8.4 - 10.2 03/30 Specimen Type: PLASMA No comment entered. Ordering Provider: MIKO JOHNSON Report Released Date/Time: Feb 24, 2025 09:47 AM Reporting Lab: [facility] [address] Performing Lab: [facility] [address] [place] [facility] COMPREHE NSIVE METABOLI C PANEL+MG PROTEIN [MASS/VOLU ME] IN SERUM OR PLASMA 6.6 g/dL 6.4 - 8.3 03/30 Specimen Type: PLASMA No comment entered. Ordering Provider: MIKO JOHNSON Report Released Date/Time: Feb 24, 2025 09:47 AM Reporting Lab: [facility] [address] Performing Lab: [facility] [address] [place] [facility] COMPREHE NSIVE METABOLI C PANEL+MG ALBUMIN [MASS/VOLU ME] IN SERUM OR PLASMA 4.1 g/dL 3.5 - 5.0 03/30 Specimen Type: PLASMA No comment entered. Ordering Provider: MIKO JOHNSON Report Released Date/Time: Feb 24, 2025 09:47 AM Reporting Lab: [facility] [address] Performing Lab: [facility] [address] [place] [facility] COMPREHE NSIVE METABOLI C PANEL+MG BILIRUBIN. TOTAL [MASS/VOLU ME] IN SERUM OR PLASMA 0.5 mg/dL 0.2 - 1.2 03/30 Specimen Type: PLASMA No comment entered. Ordering Provider: MIKO JOHNSON Report Released Date/Time: Feb 24, 2025 09:47 AM Reporting Lab: [facility] [address] Performing Lab: [facility] [address] [place] [facility] COMPREHE NSIVE METABOLI C PANEL+MG MAGNESIUM [MASS/VOLU ME] IN SERUM OR PLASMA 2.1 mg/dL 1.6 - 2.6 03/30 Specimen Type: PLASMA No comment entered. Ordering Provider: MIKO JOHNSON Report Released Date/Time: Feb 24, 2025 09:47 AM Reporting Lab: [facility] [address] Performing Lab: [facility] [address] [place] [facility] COMPREHE NSIVE METABOLI C PANEL+MG ANION GAP IN SERUM OR PLASMA 4 mmol/L 5 - 15 03/30 L Specimen Type: PLASMA No comment entered. Ordering Provider: MIKO JOHNSON Report Released Date/Time: Feb 24, 2025 09:47 AM Reporting Lab: [facility] [address] Performing Lab: [facility] [address] [place] [facility] COMPREHE NSIVE METABOLI C PANEL+MG ALKALINE PHOSPHATAS E [ENZYMATIC ACTIVITY/V OLUME] IN SERUM OR PLASMA 73 U/L 40 - 150 03/30 Specimen Type: PLASMA No comment entered. Ordering Provider: MIKO JOHNSON Report Released Date/Time: Feb 24, 2025 09:47 AM Reporting Lab: [facility] [address] Performing Lab: [facility] [address] [place] [facility] COMPREHE NSIVE METABOLI C PANEL+MG ALANINE AMINOTRANS FERASE [ENZYMATIC ACTIVITY/V OLUME] IN SERUM OR PLASMA 12 U/L <44 - 44 03/30 Specimen Type: PLASMA No comment entered. Ordering Provider: MIKO JOHNSON Report Released Date/Time: Feb 24, 2025 09:47 AM Reporting Lab: [facility] [address] Performing Lab: [facility] [address] [place] [facility] COMPREHE NSIVE METABOLI C PANEL+MG ASPARTATE AMINOTRANS FERASE [ENZYMATIC ACTIVITY/V OLUME] IN SERUM OR PLASMA 22 U/L 11 - 34 03/30 Specimen Type: PLASMA No comment entered. Ordering Provider: MIKO JOHNSON Report Released Date/Time: Feb 24, 2025 09:47 AM Reporting Lab: [facility] [address] Performing Lab: [facility] [address] [place] [facility] COMPREHE NSIVE METABOLI C PANEL+MG GLOMERULAR FILTRATION RATE/1.73 SQ M.PREDICTE D [VOLUME RATE/AREA] IN SERUM, PLASMA OR BLOOD BY CREATININE -BASED FORMULA (CKD-EPI 2020) 86 60 03/30 Specimen Type: PLASMA No comment entered. Ordering Provider: MIKO JOHNSON Report Released Date/Time: Feb 24, 2025 09:47 AM Reporting Lab: [facility] [address] Performing Lab: [facility] [address] [place] [facility] LIPID PANEL,NO N-FASTIN G CHOLESTERO L [MASS/VOLU ME] IN SERUM OR PLASMA 185 mg/dL <199 - 199 03/30 Specimen Type: PLASMA No comment entered. Ordering Provider: MIKO JOHNSON Report Released Date/Time: Feb 24, 2025 09:47 AM Reporting Lab: [facility] [address] Performing Lab: [facility] [address] [place] [facility] LIPID PANEL,NO N-FASTIN G CHOLESTERO L IN HDL [MASS/VOLU ME] IN SERUM OR PLASMA 71 mg/dL 40 07/30 /2025 Specimen Type: PLASMA No comment entered. Ordering Provider: MIKO JOHNSON Report Released Date/Time: Feb 24, 2025 09:47 AM Reporting Lab: [facility] [address] Performing Lab: [facility] [address] [place] [facility] LIPID PANEL,NO N-FASTIN G CHOLESTERO L IN LDL [MASS/VOLU ME] IN SERUM OR PLASMA BY CALCULATIO N 103 mg/dL <99 - 99 03/30 H Specimen Type: PLASMA No comment entered. Ordering Provider: MIKO JOHNSON Report Released Date/Time: Feb 24, 2025 09:47 AM Reporting Lab: [facility] [address] Performing Lab: [facility] [address] [place] [facility] LIPID PANEL,NO N-FASTIN G CHOLESTERO L IN VLDL [MASS/VOLU ME] IN SERUM OR PLASMA BY CALCULATIO N 11 mg/dL <29 - 29 03/30 Specimen Type: PLASMA No comment entered. Ordering Provider: MIKO JOHNSON Report Released Date/Time: Feb 24, 2025 09:47 AM Reporting Lab: [facility] [phone] Performing Lab: [facility] [address] [place] [facility] LIPID PANEL,NO N-FASTIN G CHOLESTERO L NON HDL [MASS/VOLU ME] IN SERUM OR PLASMA 114 mg/dL <129 - 129 03/30 Specimen Type: PLASMA No comment entered. Ordering Provider: MIKO JOHNSON Report Released Date/Time: Feb 24, 2025 09:47 AM Reporting Lab: [facility] [id number] Performing Lab: [facility] [phone] [place] [facility] LIPID PANEL,NO N-FASTIN G TRIGLYCERI DE [MASS/VOLU ME] IN SERUM OR PLASMA 54 mg/dL <149 - 149 03/30 Specimen Type: PLASMA No comment entered. Ordering Provider: MIKO JOHNSON Report Released Date/Time: Feb 24, 2025 09:47 AM Reporting Lab: [facility] [phone] Performing Lab: [facility] [address] [place] [facility] HEMOGLOB IN A1C HEMOGLOBIN A1C/HEMOGL OBIN.TOTAL [...] Feb 24, 2025 09:47 AM Reporting Lab: [facility] [address] Performing Lab: [facility] [address] [place] [facility] ANTI-HEP C(EIA) HEPATITIS C VIRUS AB [PRESENCE] IN SERUM NEGATIVE 03/30 Specimen Type: SERUM Comment: Specimen received is PLASMA. Ordering Provider: MIKO JOHNSON Report Released Date/Time: Mar 30, 2025 10:44 AM Reporting Lab: [facility] [phone] Performing Lab: [facility] [address] [place] [facility] IRON GROUP IRON [MASS/VOLU ME] IN SERUM OR PLASMA 84 ug/dL 65 - 175 03/30 Specimen Type: SERUM Comment: Specimen received is PLASMA. Ordering Provider: MIKO JOHNSON Report Released Date/Time: Mar 30, 2025 10:45 AM Reporting Lab: [facility] [address] Performing Lab: [facility] [address] [place] [facility] IRON GROUP IRON BINDING CAPACITY [MASS/VOLU ME] IN SERUM OR PLASMA 316 ug/dL 250 - 425 03/30 Specimen Type: SERUM Comment: Specimen received is PLASMA. Ordering Provider: MIKO JOHNSON Report Released Date/Time: Mar 30, 2025 10:45 AM Reporting Lab: [facility] [address] Performing Lab: [facility] [address] [place] [facility] IRON GROUP FERRITIN [MASS/VOLU ME] IN SERUM OR PLASMA 44.2 ng/mL 21.8 - 274.7 03/30 Specimen Type: SERUM Comment: Specimen received is PLASMA. Ordering Provider: MIKO JOHNSON Report Released Date/Time: Mar 30, 2025 10:45 AM Reporting Lab: [facility] [phone] Performing Lab: [facility] [address] [place] [facility] IRON GROUP IRON SATURATION 27 20 - 50 03/30 Specimen Type: SERUM Comment: Specimen received is PLASMA. Ordering Provider: MIKO JOHNSON Report Released Date/Time: Mar 30, 2025 10:45 AM Reporting Lab: [facility] [address] Performing Lab: [facility] [address] [place] [facility] IRON GROUP TRANSFERRI N [MASS/VOLU ME] IN SERUM OR PLASMA 253 mg/dL 163 - 382 03/30 Specimen Type: SERUM Comment: Specimen received is PLASMA. Ordering Provider: MIKO JOHNSON Report Released Date/Time: Mar 30, 2025 10:45 AM Reporting Lab: [facility] [phone] Performing Lab: [facility] [address] [place] [facility] BASIC METABOLI C PANEL+MG CREATININE [MASS/VOLU ME] IN SERUM OR PLASMA 0.9 mg/dL 0.7 - 1.2 09/17 Specimen Type: PLASMA No comment entered. Ordering Provider: CRISTIANA RANDALL Report Released Date/Time: Sep 20, 2022 08:34 AM Reporting Lab: [facility] [address] Performing Lab: [facility] [address] [place] [facility] BASIC METABOLI C PANEL+MG UREA NITROGEN [MASS/VOLU ME] IN SERUM OR PLASMA 19 mg/dL 8 - 26 09/17 Specimen Type: PLASMA No comment entered. Ordering Provider: CRISTIANA RANDALL Report Released Date/Time: Sep 20, 2022 08:34 AM Reporting Lab: [facility] [address] Performing Lab: [facility] [address] [place] [facility] BASIC METABOLI C PANEL+MG GLUCOSE [MASS/VOLU ME] IN SERUM OR PLASMA 101 mg/dL 70 - 100 09/17 H Specimen Type: PLASMA No comment entered. Ordering Provider: CRISTIANA RANDALL Report Released Date/Time: Sep 20, 2022 08:34 AM Reporting Lab: [facility] [address] Performing Lab: [facility] [address] [place] [facility] BASIC METABOLI C PANEL+MG SODIUM [MOLES/VOL UME] IN SERUM OR PLASMA 138 mmol/L 136 - 145 09/17 Specimen Type: PLASMA No comment entered. Ordering Provider: CRISTIANA RANDALL Report Released Date/Time: Sep 20, 2022 08:34 AM Reporting Lab: [facility] [phone] Performing Lab: [facility] [address] [place] [facility] BASIC METABOLI C PANEL+MG POTASSIUM [MOLES/VOL UME] IN SERUM OR PLASMA 4.1 mmol/L 3.5 - 5.1 09/17 Specimen Type: PLASMA No comment entered. Ordering Provider: CRISTIANA RANDALL Report Released Date/Time: Sep 20, 2022 08:34 AM Reporting Lab: [facility] [address] Performing Lab: [facility] [address] [place] [facility] BASIC METABOLI C PANEL+MG CHLORIDE [MOLES/VOL UME] IN SERUM OR PLASMA 102 mmol/L 98 - 107 09/17 Specimen Type: PLASMA No comment entered. Ordering Provider: CRISTIANA RANDALL Report Released Date/Time: Sep 20, 2022 08:34 AM Reporting Lab: [facility] [address] Performing Lab: [facility] [address] [place] [facility] BASIC METABOLI C PANEL+MG CARBON DIOXIDE, TOTAL [MOLES/VOL UME] IN SERUM OR PLASMA 29 mmol/L 22 - 29 09/17 Specimen Type: PLASMA No comment entered. Ordering Provider: CRISTIANA RANDALL Report Released Date/Time: Sep 20, 2022 08:34 AM Reporting Lab: [facility] [address] Performing Lab: [facility] [address] [place] [facility] BASIC METABOLI C PANEL+MG CALCIUM [MASS/VOLU ME] IN SERUM OR PLASMA 9.4 mg/dL 8.4 - 10.2 09/17 Specimen Type: PLASMA No comment entered. Ordering Provider: CRISTIANA RANDALL Report Released Date/Time: Sep 20, 2022 08:34 AM Reporting Lab: [facility] [address] Performing Lab: [facility] [address] [place] [facility] BASIC METABOLI C PANEL+MG MAGNESIUM [MASS/VOLU ME] IN SERUM OR PLASMA 2.2 mg/dL 1.6 - 2.6 09/17 Specimen Type: PLASMA No comment entered. Ordering Provider: CRISTIANA RANDALL Report Released Date/Time: Sep 20, 2022 08:34 AM Reporting Lab: [facility] [address] Performing Lab: [facility] [address] [place] [facility] BASIC METABOLI C PANEL+MG ANION GAP IN SERUM OR PLASMA 7 mmol/L 5 - 15 09/17 Specimen Type: PLASMA No comment entered. Ordering Provider: CRISTIANA RANDALL Report Released Date/Time: Sep 20, 2022 08:34 AM Reporting Lab: [facility] [phone] Performing Lab: [facility] [address] [place] [facility] BASIC METABOLI C PANEL+MG GLOMERULAR FILTRATION RATE/1.73 SQ M.PREDICTE D [VOLUME RATE/AREA] IN SERUM, PLASMA OR BLOOD BY CREATININE -BASED FORMULA (CKD-EPI 2020) 84 60 09/17 Specimen Type: PLASMA No comment entered. Ordering Provider: CRISTIANA RANDALL Report Released Date/Time: Sep 20, 2022 08:34 AM Reporting Lab: [facility] [address] Performing Lab: [facility] [address] [place] [facility] Vital Signs Combined list of inpatient and outpatient Vital Signs from Department of [facility] and Veterans Affairs, ranging from 12 months to all on record, depending upon the facility. Vital Sign Value Date Comments Source SYSTOLIC BLOOD PRESSURE 146 03/30/2025 09:48:28 [facility] DIASTOLIC BLOOD PRESSURE 73 03/30/2025 09:48:28 [facility] PULSE OXIMETRY 99 % 03/30/2025 09:48:28 [facility] WE[facility] 163.9 03/30/2025 09:48:28 [facility] BMI 23 kg/m2 03/30/2025 09:48:28 [facility] HEIGHT 70.25 03/30/2025 09:48:28 [facility] TEMPERATURE 97.8 03/30/2025 09:48:28 [facility] PULSE 64 03/30/2025 09:48:28 [facility] RESPIRATION 12 03/30/2025 09:48:28 [facility] Encounters Combined list of: 1) Encounters from Department of Veterans Affairs facilities going backup to the last 18 months, not all [place] inpatient encounters are included; 2) Encounters from the Department of [facility] facilities going backup to 280 months. Location Location Details Encounter Type Encounter Number Reason For Visit Attending Provider ADM Date DC Date Status Disposition Source [facility] O/P EST HI 40 MIN [id number] Diagnos is: ICD-10- CM E78.5 Hyperli pidemia , unspeci fied MIKO SANCHEZ 03/30 [facility] Social History Combined list of available smoking, tobacco, and other social history from Department of Defense and Veterans Affairs facilities. Social History Type Response Date Comment Sourc e Tobacco smoking status NHIS VA-TOBACCO USE FORMER CIGARETTES 03/30/2025 [facility] History of tobacco use MI-TOBACCO USE SO ME DAYS OTHER TYPE 03/30/2025 [facility] History of tobacco use VA-TOBACCO FORMER USER 09/16/2023 [facility] History of tobacco use MI-TOBACCO FORMER USER 09/20/2022 [facility] History of tobacco use MI-TOBACCO FORMER USER 04/02/2021 [facility] History of tobacco use MI-TOBACCO QUIT 1 5 YRS OR MORE 08/16/2019 [facility] Advance Directives List of completed, amended, or rescinded Advance Directives on record at Department of [facility] Affairs facilities. An actual copy of the Directive is not included. Date Advance Directive Provider Source 04/02/2004 ADVANCE DIRECTIVE ABRAN SES[facility]
--- OUTSIDE RECORDS SUMMARY | 2025-04-18 01:17 | XMS_ITS | Clinical Summary ---
Author Organization [facility] [facility] Address [address] [place] [id number] Care Team Providers Care Finish Patcher Name Role Phone Ellen Hamilton MD Primary Care Provider [phone] Allergies No known active allergies Medications MULTIVITAMIN TAB one daily 0 02/12/20 07 Active fexofenadine (GERARDO) 180 mg tablet Take 1 tablet by mouth once daily with a meal. 0 12/23/19 14 Active glucosamine-chond roit-vit c-mn (GLUCOSAMINE CHONDROITIN MAXSTR) 500-400 mg cap Takes 2 tabs daily 0 11/19/19 15 Active hydrochlorothiazi de (HCTZ) 25 mg tablet Take 1 tablet by mouth once daily. 0 11/19/19 15 Active fluticasone (50 mcg per actuation) nasal solution (FLONASE) Inhale 1 [place] into both nostrils once daily. 1 Bottle 0 11/19/19 15 Active simvastatin (ZOCOR) 20 mg tablet Take 20 mg by mouth at bedtime. 03/06/20 20 Active tamsulosin (FLOMAX) 0.4 mg capsule 04/18/20 20 Active tadalafiL (CIALIS) 5 mg tabletIndications :Erectile disorder due to medical condition in male Take 2 Tablets (10 mg) by mouth once daily if needed for Erectile Dysfunction. Take 30 minutes before sexual activity. 90 Tablet 3 11/08/19 22 Active tadalafiL (CIALIS) 5 mg tabletIndications :Erectile dysfunction, unspecified erectile dysfunction type Take 1 Tablet (5 mg) by mouth once daily if needed for Erectile Dysfunction. Take 30 minutes before sexual activity. 90 Tablet 3 11/08/19 22 Active calcium polycarbophiL (Fiber) 625 mg tablet Take 625 mg by mouth two times daily. Active cholecalciferol 5,000 unit capsule Take 5,000 units by mouth once daily. 40 units = 1 mcg (5000 units = 125 mcg) Active docusate 100 mg capsule Take 100 mg by mouth two times daily. Active finasteride 5 mg tablet Take 5 mg by mouth once daily in the morning. Active PSYLLIUM HUSK (SUCRALOSE) ORAL Take by mouth once daily if needed. Active tadalafiL 20 mg tablet Take 20 mg by mouth once daily. Take 30 minutes before sexual activity. Active sodium chloride 0.65 % nasal solutionIndicatio ns:Chronic pansinusitis Inhale 2 Sprays into affected nostril(s) every 4 hours. While awake until follow-up appointment. 12/09/19 25 Active HYDROcodone-aceta minophen (5-325 mg/tablet)Indicat ions:Chronic pansinusitis Take 1 Tablet by mouth every 4 hours if needed for Pain. Max acetaminophen dose: 4000 mg in 24 hrs. 15 Tablet 4:07 PM CDT 12/09/19 25 Active POTASSIUM ORAL Take by mouth. Active Active Problems Problem Noted Date Diagnosed Date Right rotator cuff tear arthropathy 01/30/2024 Lumbar spinal stenosis 12/22/2013 Synovial cyst of lumbar facet joint 12/22/2013 Encounters Date Type Department Care Team Description 03/28/2025 9:00 AM CDT Office Visit [facility] [address] [place] [address] Ridge King MD Allergies (CHRONIC RHINITIS (referred by Dr Hamilton)) 03/28/2025 Travel 02/08/2025 Transcribe Orders [facility] [address] [place] [address] Ellen Hamilton MD from Last 3 Months Immunizations Immunization Administration Dates Next Due Influenza, High-dose Inactivated 05/21/2016,06/01 Influenza, IIV4 05/18/2014,05/18/2014 Influenza, Inactivated IIV3 (Age 65+ Years) Preserv Free 05/22/2018,04/28/2017 Pneumococcal Poly,23-Valent (Pneumovax) 09/01/19 04 Pneumococcal, Unspecified 02/13/2006 Td (Age >=7 Years) 01/21/2007,06/14/2005 Zoster (Zostavax-ZVL, live) 08/15/2010 Social History Tobacco Use Types Packs/Day Years Used Date Smoking Tobacco: Former Cigarettes Cigars Smokeless Tobacco: Never Comments:cigar 2x/month duri ng summer months Alcohol Use Standard Drinks/Week Comments Yes 0 (1 standard drink = 0.6 oz pure alcohol) 1-2 drinks per night during happy hour Financial Resource Strain Answer Date R ecorded Difficulty of Paying Living Expenses Not on file 09/01/2021 Difficulty of Paying Living Expenses Not on file 09/01/2021 Sex and Gender Information Value Date Recorded Sex Assigned at Not on file 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 Gender Identity Not on file Sexual Orientation Not on file Obstetrics History Last Filed Vital Signs Vital Sign Reading Time Taken Comments Blood Pressure 121/70 03/28/2025 9:12 AM CDT Pulse 65 03/28/2025 9:12 AM CDT Temperature 36.4 C (97.6 F) 03/28/2025 9:12 AM CDT Respiratory Rate 17 12/08/2024 5:45 PM CDT Oxygen Saturation 99% 03/28/2025 9:12 AM CDT Inhaled Oxygen Concentration - - Weight 73.2 kg (161 lb 6.4 oz) 03/28/2025 9:12 A M CDT Height 179 cm (5' 10.47) 03/28/2025 9:12 AM CDT Body Mass Index 22.85 03/28/2025 9:12 AM CDT Plan of Treatment Upcoming Encounters Date Type Department Care Team (Late st Contact Info) Description 06/09/2025 10:40 AM CDT Office Visit [facility] [address] [place] [address] Donn Montanez MD [address] [place] [address] Health Maintenance Due Date Last Done Comments Depression screening for age 12+ 1952 Medicare Wellness for age 65+ 2003 Pneumococcal series for age 50+ (2 of 2 - PCV) 02/13/2007 02/13/2006, 09/01/2003 Zoster (shingles) series for age 50+ (2 of 3) 10/10/2010 08/15/2010 RSV vaccine for adults or (1 - 1-dose 75+ series) 2013 Tetanus booster 01/21/2017 01/21/2007, 06/14/2005 COVID-19 vaccine series (2 - 2023- season) 2024 06/14/2021 Influenza Vaccine (#1) 2025 8, 04/28/2017, 05/21/2016, Additional history exists BMI (ht and wt on same day) for age 18+ 03/28/2026 03/28/2025 Hepatitis B series for 19+ Aged Out N o longer eligible based on patient's age to complete this topic Procedures Procedure Name Priority Date/Time Associated Diagnosis Comments AR PERCUTANEOUS TESTS W/ALLERGENIC EXTRACTS Routine 03/28/2025 12:00 AM CDT Chronic rhinitis from Last 3 Months Results * AR PERCUTANEOUS TESTS W/ALLERGENIC EXTRACTS (03/28/2025 12:00 AM CDT) Ridge King MD [facility] Final Result from Last 3 Months Insurance MEDICARE [facility] ONLY [facility] MEDICARE PART B HB ONLY MEDICARE PART A HB ONLY Advance Directives * Full Code (Latest Code Status on File) Date Activated Date Inactivated Comments 12/08/2024 10:30 AM 12/08/2024 8:54 PM Question Answer Comments Code Status Discussion: Reviewed Preferences Care Teams Finish Patcher Relationship Specialty Start Date End Date Ellen Hamilton MD [address] [place] [id number] PCP - General Internal Medicine 10/08/13
--- OUTSIDE RECORDS SUMMARY | 2025-04-18 01:17 | XMS_ITS | Clinical Summary ---
Author Organization [facility] Address [address] [place] [address] Care Team Providers Care Railway Yard Assistant Name Role Phone Unavailable Primary Care Provider Unavailabl e Source Comments Patient records contain information from all sites at [facility]. For routine questions regarding patient records, call [phone] during business hours, M-F 8:00 AM - 5:00 PM Central Time. Record requests for emergency care only can be directed to [phone] at any time.[facility] Allergies No known active allergies Medications FOLIC ACID/MULTIVIT-M IN/LUTEIN (CENTRUM SILVER ORAL) Take by mouth daily. 9 Active hydroCHLOROthia zide (for_HYDRODIURI L) 25 mg tablet Take by mouth daily. 9 Active hydrocortisone (for_HYTONE) 2.5 % cream Apply topically as needed. Once to twice daily to dry spot on leg 7 Active aspirin [address] tablet Take 81 mg by mouth daily. Active glucosamine-cho ndroitin (GLUCOSAMINE-CH ONDROITIN) 500-400 mg per capsule Take 1 capsule by mouth daily. Active cetirizine HCl (CETIRIZINE ORAL) Take by mouth daily. UNSURE OF DOSE 2 Active CHOLECALCIFEROL , VITAMIN D3, ORAL Take 5,000 Units by mouth daily. 2 Active fexofenadine (GERARDO) 180 mg tablet Take 180 mg by mouth daily. 4 Active DIPHENHYDRAMINE HCL ORAL Take 25 mg by mouth at bedtime. 2 Active DOCUSATE CALCIUM ORAL Take 1 mg by mouth 2 (two) times a day. 2 Active glucosamine/msm /chondroitin A (GLUCOSAMINE FFG-CXV-HPRGBVE ITN ORAL) Take 2 tablets by mouth 2 (two) times a day. 2 Active finasteride (PROSCAR) 5 mg tablet Take 5 mg by mouth daily. 2 Active FLUTICASONE PROPIONATE NASAL Administer 1 spray into nostril(s) 2 (two) times a day. 3 Active METHYLCELLULOSE , LAXATIVE, ORAL Take 1 tablet by mouth daily. 2 Active multivit-minera ls/FA/lycopene (ONE-A-DAY MEN'S 50 PLUS ORAL) Take 1 tablet by mouth daily. 2 Active psyllium (METAMUCIL) 0.52 gram capsule Take 0.52 g by mouth 2 (two) times a day. 2 Active simvastatin (ZOCOR) 20 mg tablet Take 20 mg by mouth at bedtime. 3 Active tadalafiL (CIALIS) 5 mg tablet Take 5 mg by mouth daily as needed. 2 Active tamsulosin 0.4 mg oral capsule Take 0.4 mg by mouth daily. 3 Active azelastine (Astelin) 137 mcg/spray (0.1 %) nasal spray INSTILL 2 SPRAYS INTO IN EACH NOSTRIL TWICE A DAY Active docusate sodium (Colace) 100 mg capsule Take 200 mg by mouth. 1 Active sildenafiL (Viagra) 100 mg tablet TAKE 1 TABLET BY MOUTH NEEDED IN COMBINATION WITH DAILY TADALAFIL Active Hospital, Clinic, or Other Facility Administered Medication Ordered Dose Route Frequency Start Date End Date Status lidocaine-EPINEPHrine 1 %-1:100,000 injection 1-3 mL (XYLOCAINE W/EPI) 1 - 3 mL Ifil As needed 01/19/2018 Active lidocaine-EPINEPHrine 1%-1:200,000 injection 2-50 mL (XYLOCAINE W/EPI) 2 - 50 mL inj As needed 01/14/2019 Acti ve ezvfqyulbyb-ompjzzvdu-QZOVFYH rine 0.25%-1%-1:200,000 injection 2-25 mL 2 - 25 mL inj As needed 01/14/2019 Active Active Problems No known active problems Social History Tobacco Use Types Packs/Day Years Used Date Smoking Tobacco: Former Cigarettes 1 15.4 0 09/01/1969 - 01/25/1985 Passive Smoke Exposure: Never Smokeless Tobacco: Never Tobacco Cessation:Counseling Given: Not Answered Alcohol Use Standard Drinks/Week Comments Yes 8 (1 standard drink = 0.6 oz pur e alcohol) occasional [facility] Utilities Answer Date Recorded In the past 12 months has th e [employer], gas, oil, or water company threatened to shut off services in your home? No 11/21/2024 Hunger Vital Sign Answer Date Recorded Within the past 12 months, y ou worried that your food would run out before you got the money to buy more. Never true 11/22/19 25 Within the past 12 months, t he food you bought just didn't last and you didn't have money to get more. Never true 11/21/2024 PRAPARE - Transportation Answer Date Re corded In the past 12 months, has l ack of transportation kept you from medical appointments or from getting medications? No 10/31 In the past 12 months, has l ack of transportation kept you from meetings, work, or from getting things needed for daily living? No 11/21/2024 Housing Stability Answer Date Recorded What is your living situation today? 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 Gender Identity Male 01/19/2018 2:04 PM CDT [...] Comments Potassium Level 1940 Sodium Level 1938 RSV vaccine - (32-36 weeks) or 60+ years (1 - 1-dose 75+ series) 2013 Creatinine Level (Kidney Function Test) 04/25/2022 04/25/2021 COVID-19 Vaccine (4 - season) 2024 06/14/2021, 10/23/2020, 10/02/2020 Depression Screening (Annual PHQ-2) 09/01/2024 Fall Risk Screen (Annual) 09/01/2024 DTaP,Tdap,and Td Vaccines (2 - Td or Tdap) 10/03/2024 10/03/2014, 06/14/2005, 03/01/1999 Influenza Vaccine (#1) 2025 , 07/10/2022, 06/26/2021, Additional history exists Pneumococcal vaccine (50+ years) Completed 06/01/2019, 10/06/2014, 02/13/2006, Additional history exists Zoster Vaccines Completed 09/20/2022, 09/01, 08/15/2010 IPV Vaccines Aged Out No longer eligi ble based on patient's age to complete this [...] the 2009 CKD_EPI creatinine equation. eGFR-Black/Afric an Croatian >90 >=60 mL/min/BSA 04/25/2021 3:49 PM CDT DTL Comment: ----ADDITIONAL INFORMATION---- Estimated GFR calculated using the 2009 CKD_EPI creatinine equation. Blood (Blood, Venous) 04/25/2021 2:52 PM CDT 04/25/2021 3:18 PM CDT Ashley Mckeon M.D. LAB BLOOD ADD-ON Final R esult [facility] [address] [place] [address], [place] DTL [facility] [address] [place] [address] from Last 3 Months or Most Recently Relevant to Health Maintenance Insurance MEDICARE [facility]
--- OUTSIDE RECORDS SUMMARY | 2025-04-18 01:18 | XMS_ITS | Patient Health Record ---
Author Organization [facility] Address [address] [place] [address] Care Team Providers Care High Lift Driver Name Role Phone Ellen Hamilton Primary Care Provider UnavailJOSE Joel Unavailable [phone] JARVIS SPANGLER Unavailable [phone] Allergies No Known Allergies Results Component Value Reference Range Notes CT Sinuses, Fusion/IGS (in-h ouse, today) Reviewed date:09/30/2024 11:53:28 AM Interpretation:Fairly severe pansinus inflammation sparing the sphenoid sinuses. Subtotal opacification of ethmoidal sinuses with severe mucosal thickening bilateral maxillary sinuses and air-fluid level left maxillary sinus. rightward septal deviation. Turbinate hypertrophy. Performing Lab: Notes/Report: Fairly severe pansinus inflammation sparing the sphenoid sinuses. Subtotal opacification of ethmoidal sinuses with severe mucosal thickening bilateral maxillary sinuses and air-fluid level left maxillary sinus. rightward septal deviation. Turbinate hypertrophy. Reason For Referral No Information Medications Medication SIG (Take, Route, Frequency, Duration) Notes Start Date End Date Status Singulair 10 MG Tablet 1 tablet in the evening Orally Once a day; Duration: 30 day(s) 10/12/2024 Active Claritin 10 MG Tablet 1 tablet Orally Once a day; Duration: 30 day(s) 12/29/2024 07/27/2025 Active Astelin 137 MCG/SPRAY Solution 2 puff in each nostril Nasally Twice a day; Duration: 30 day(s) 12/31/2023 Active Fexofenadine HCl 12/31/2023 Ac tive Finasteride 12/31/2023 Active predniSONE 10 MG Tablet 3 tablet with fo od or milk Orally Once a day; Duration: 5 days 12/29/2024 Not-Taking Tamsulosin HCl 12/31/2023 Acti ve Flonase 50 MCG/ACT Suspension 2 sprays each side Nasally Once a day; Duration: 30 days 02/03/2025 Active Simvastatin 12/31/2023 Active Tadalafil 12/31/2023 Active Fluticasone Furoate 12/31/2023 Active predniSONE 10 MG Tablet 4 tabs per day f or 3 days, then 3 per day for 3 days, then 2 per day for 3 days, then 1 per day x3 Orally Once a day; Duration: 12 days 02/03/2025 Active hydroCHLOROthiazide 12/31/2023 Active Social History Tobacco Use: Social History Observation Description Date Details (start date - stop date) Never Smoker NA - NA Social History Alcohol Use: Social Info Question Answer Notes Recreational drugs Recreational Drug Use: No Drug/Alcohol: Social Info Question Answer Notes AUDIT-C (Standard) Did you have a drink containing alcohol in the past year? Yes How often did you have a drink containing alcohol in the past year? Never (0 point) How many drinks did you have on a typical day when you were drinking in the past year? 1 or 2 drinks (0 point) How often did you have six or more drinks on one occasion in the past year? Less than monthly (1 point) Points 1 Interpretation Negative Tobacco Use: Social Info Question Answer Notes Tobacco Control (Standard) Tobacco use: Nonsmoker Problems Problem Type SNOMED Code ICD Code Onset Dates Problem Status W/U Status Risk Notes Problem Deviated nasal septum (160533801) Nasal septal deviation (J34.2) Active confirmed Problem Chronic sinusitis (01319852) Chronic sinusitis, unspecified location (J32.9) Active confirmed Problem Postprocedural states (949402658) S/P FESS (functional endoscopic sinus surgery) (Z98.890) Active confirmed Problem Chronic rhinitis (48263134) Chronic rhinitis (J31.0) Active confirmed Problem Chronic pansinusitis (10364526) Chronic pansinusitis (J32.4) Active confirmed Vital Signs Height-cm 180.09 cm 02/03/2025 Weight-kg 75.75 kg 02/03/2025 Height 70.9 in 02/03/2025 Weight 167 lbs 02/03/2025 BMI 23.35 kg/m2 02/03/2025 Procedures Procedure Date Ordered Date Performed Result Body Sit e Surgery 10/12/2024 12/08/2024 12-29-24 Encounters Encounter Location Date Provider Diagnosis [facility] [address] [address] 07/07/2024 JOSE FERNANDEZ Chronic rhinitis J31.0 [facility] [address] [address] 09/14/2024 JOSE FERNANDEZ Chronic rhinitis J31.0 and Chronic pansinusitis J32.4 [facility] [address] [address] 09/24/2024 JARVIS SPANGLER Chronic sinusitis, unspecified location J32.9 and Nasal septal deviation J34.2 [facility] [address] [address] 10/12/2024 JOSE FERNANDEZ Chronic pansinusitis J32.4 [facility] [address] [place], [place] [id number] 12/08/2024 JOSE FERNANDEZ [facility] [address] [address] 12/14/2024 JOSE FERNANDEZ Chronic pansinusitis J32.4 and S/P FESS (functional endoscopic sinus surgery) Z98.890 [facility] [address] [address] 12/29/2024 JOSE FERNANDEZ S/P FESS (functional endoscopic sinus surgery) Z98.890 and Chronic rhinitis J31.0 [facility] [address] [address] 01/12/2025 JOSE FERNANDEZ Chronic pansinusitis J32.4 and S/P FESS (functional endoscopic sinus surgery) Z98.890 [facility] [address] [address] 02/03/2025 JOSE FERNANDEZ Chronic rhinitis J31.0 and S/P FESS (functional endoscopic sinus surgery) Z98.890 [facility] [address] [place] [address] 08/09/2024 JOSE FERNANDEZ [facility] [address] [place] [address] 09/29/2024 JARVIS SPANGLER [facility] [address] [place] [address] 10/07/2024 JARVIS SPANGLER [facility] [address] [place] [address] 10/11/2024 JOSE FERNANDEZ [facility] [address] [place] [address] 10/14/2024 JOSE FERNANDEZ [facility] [address] [place] [address] 10/18/2024 JOSE FERNANDEZ [facility] [address] [place] [address] 11/15/2024 JOSE FERNANDEZ [facility] [address] [place] [address] 11/15/2024 JOSE FERNANDEZ Chronic pansinusitis J32.4 [facility] [address] [place] [address] 12/02/2024 JOSE FERNANDEZ [facility] [address] [place] [address] 12/09/2024 JOSE FERNANDEZ [facility] [address] [place] [address] 12/20/2024 JOSE FERNANDEZ Assessments Encounter Date Diagnosis (ICD Code) Assessment Notes Treatment Notes Treatment Clinical Notes Section Notes 11/15/2024 Chronic pansinusitis (ICD-10 - J32.4) 12/14/2024 S/P FESS (functional endoscopic sinus surgery) (ICD-10 - Z98.890) 12/14/2024 Chronic pansinusitis (ICD-10 - J32.4) 12/29/2024 S/P FESS (functional endoscopic sinus surgery) (ICD-10 - Z98.890) 12/29/2024 Chronic rhinitis (ICD-10 - J31.0) 01/12/2025 S/P FESS (functional endoscopic sinus surgery) (ICD-10 - Z98.890) His sinuses were debrided today of a minor amount of mucu,s otherwise appears to be healing well without signs of ongoing infection. I encouraged continued saline spray and return to clinic in 2 to 3 weeks if he still has any symptoms. 01/12/2025 Chronic pansinusitis (ICD-10 - J32.4) 02/03/2025 S/P FESS (functional endoscopic sinus surgery) (ICD-10 - Z98.890) 02/03/2025 Chronic rhinitis (ICD-10 - J31.0) 07/07/2024 Chronic rhinitis (ICD-10 - J31.0) He describes underlying chronic rhinitis, either allergic or vasomotor and I thought it reasonable to try Atrovent for the next couple months. Currently he has a cold, however, and I would like him to use Afrin for 3 days and Sudafed for 5 days. If his symptoms fail to show any signs of improvement he may call in 1 week and we would consider putting him on antibiotics. I suspect once this URI clears will be back to his baseline chronic rhinitis which will hopefully respond to the Atrovent. 09/14/2024 Chronic rhinitis (ICD-10 - J31.0) We reviewed the patient's clinical exam and management options moving forward. On exam, he sounds congested although there is no visualized pus or purulence. I suspect he is dealing with a lingering sinus infection or bacterial super infection, for which I prescribedprednisone x 5 days as well as Augmentin BID x 10 days. He should also continue with his sinus saline irrigations BID. If he does not have improvement with this regimen, he should return to clinic in 2-4 weeks for reassessment. Patient is in agreement with the plan and all questions were answered. 09/14/2024 Chronic pansinusitis (ICD-10 - J32.4) 09/24/2024 Nasal septal deviation (ICD-10 - J34.2) Patient has findings of severe sinus inflammation. Will treat him with more extended course of oral antibiotics and more extended course of oral prednisone. Continue fluticasone. Hopefully will respond to medical management but discussed potential need for sinus surgery intervention if inadequate response to medical therapy. Questions answered to his satisfaction. 09/24/2024 Chronic sinusitis, unspecified location (ICD-10 - J32.9) Patient has findings of severe sinus inflammation. Will treat him with more extended course of oral antibiotics and more extended course of oral prednisone. Continue fluticasone. Hopefully will respond to medical management but discussed potential need for sinus surgery intervention if inadequate response to medical therapy. Questions answered to his satisfaction. 10/12/2024 Chronic pansinusitis (ICD-10 - J32.4) In the setting of recurrent sinusitis that has failed medical therapy (multiple rounds of antibiotics and steroids and nasal spray), I discussed the potential for functional endoscopic sinus surgery moving forward. I discussed the procedure details, risks, benefits, alternatives including consulting with the food and nutrition services assistant, and recovery expectations. Risks include but are not limited to the risk of bleeding, recurrent infection, anesthesia reaction, CSF leak, nosebleed, injury to the eye and optic nerve, change in sense of smell and taste, persistence and/or worsening of sinus symptoms and facial pain, and swelling/ bruising around the eye. Patient is interested in the surgery. I will treat him with one more course of antibiotics, doxycycline for 10 days, and start him on Singulair to reduce inflammation. I have strongly advised stopping the Afrin spray as this is not for daily use and can reduce the effectiveness of surgery. I will have the coordinator call the patient to schedule his sinus surgery. If the patient improves with the doxycycline and Singulair, and no longer wants the sinus surgery, patient will let us know. 12/14/2024 Other We discussed ex am findings and further management. Nasal exam shows mild nasal crusting without pus, polyps, or fresh blood. No blood in the oropharynx. I instructed the patient to use saline nasal rinses twice daily. Patient can gently clean his nose. He can gently blow his nose starting tomorrow, and one week from tomorrow, he can blow his nose normally. Regarding the patient's complaint of post-operative fatigue, I discussed that it will take approximately one month for the patient to return to baseline. Follow up in 2-3 weeks for recheck. 12/29/2024 Other He is status po st bilateral endoscopic sinus surgery and I do not see evidence for ongoing sinusitis. There is still some postoperative edema and I wonder if this might be exacerbated by his spring seasonal allergies. He also may have some residual edema given his age. I recommended a short, low-dose burst of prednisone and daily Claritin with follow-up in 2 weeks. He will finish off his antibiotics and call if his symptoms should fail to slowly improve. 02/03/2025 Other On exam he soun ds little better and he has less nasal mucosal edema, but there is still fair amount of swelling. This decongested mildly well with the topical phenylephrine. On endoscopy I did not see any purulence although there were some secretions. He has polypoid appearing middle turbinate mucosa but no magno polyps. I think his persistent swelling is due to a combination of seasonal allergies, slow postoperative wound healing, and his tendency for nasal polyps. I also wonder if he has some degree of rhinitis medicamentosa and I asked him to discontinue the Vicks. I put him on a longer, tapering dose of steroids for his polypoid and edematous mucosa and I started him on Flonse. I encouraged him to make an allergy appointment and he will return to clinic in 3 to 4 weeks if his symptoms have not shown steady improvement. Although he does describe some clear rhinorrhea, predominately on the left, he does not describe gushing type drainage or headaches that would make me suspicious for CSF fistula. He was encouraged to return, however, if he does notice increasing clear nasal drainage. Plan Of Treatment No Information Insurance Providers Payer Name Payer Address Payer Phone Subscriber Number Group Number Insured Name Patient Relationship to Insured Coverage Start Date Coverage End Date MEDICARE [address] [place] [address] [id number] Quinton Griggs Self - patient is the insured 3 [facility] [address] [place], [place] [id number] Quinton Griggs Self - patient is the insured 3 Medical (General) History Medical History History ICD Code HTN skin cancer easy bleeding or bruising Surgical History Surgery Date(Month/Year) BILATERAL TOTAL ETHMOIDS, MAX ANTROSTOMI ES AND FRONTALS WITH FUSION 12/08/2024
[2025-04-18 01:19] VITALS: BP 186/93; PULSE 78; RESP 16; TEMP 36.6; O2SAT 98; BMI 23.5
--- NOTE | 2025-04-18 01:33 | ED.GENADULT ---
HPI - General Adult General Chief complaint: Insect Bite Stated complaint: bee sting Time Seen by Provider: 04/18/25 01:33 History of Present Illness HPI narrative: Pt reports being stung by bees while mowing around 1500 hours. Stung on arms, torso, face. Not allergic as far as he knows. Itchy/ burning/ redness in arms and some swelling to arms and lip . 84-year-old man presenting to the emergency following being stung by ground bees while mowing around 10 hours ago. Stung a couple of times last week and sprayed the nest thinking that had taken care of it. Happened to mow over it again today and then was stung in multiple locations including his left lower lip right infra-axillary area, forearms. The burning is is really getting to him. Has tried witchcraft being witch Thelma, hydrocortisone cream No sensation of difficulty breathing, abdominal cramping or nausea, no throat tightness Related Data Home Medications ?Medication ?Instructions ?Recorded ?Confirmed cholecalciferol (vitamin D3) 125 5,000 unit PO DAILY 04/05/22 03/17/25 mcg (5,000 unit) tablet docusate calcium 240 mg capsule 1 mg PO BID 04/05/22 03/17/25 finasteride 5 mg tablet 5 mg PO DAILY 04/05/22 03/17/25 glucosamine SNi-jfy-njgcddhhekn 1 tab PO QDAY 04/05/22 03/17/25 500 mg-167 mg-400 mg tablet methylcellulose (laxative) 2 g PO BID 04/05/22 03/17/25 multivitamin (Multiple Vitamins 1 tab PO QDAY 04/05/22 03/17/25 tablet) psyllium husk 0.52 gram capsule 1 g PO PRN 04/05/22 03/17/25 tadalafil 20 mg tablet 20 mg PO DAILY 04/22/24 03/17/25 fluticasone propionate 50 2 spray intranasal DAILY 02/07/25 03/17/25 mcg/actuation nasal spray,suspension loratadine 10 mg tablet (Claritin) 10 mg PO QDAY 02/07/25 03/17/25 Previous Rx's ?Medication ?Instructions ?Recorded hydrochlorothiazide 25 mg tablet 25 mg PO DAILY #90 tabs 11/24/24 simvastatin 20 mg tablet 20 mg PO .Bedtime #90 tabs 02/07/25 Allergies Allergy/AdvReac Type Severity Reaction Status Date / Time No Known Drug Allergies Allergy Verified 03/17/25 09:32 Review of Systems Status of ROS: Reports: 6 or more systems reviewed and unremarkable except as noted in History and below [facility] Pulmonary nodules ?R91.8 - Other nonspecific abnormal finding of lung field (ICD-10) Surgical History History of sinus surgery ?Z98.890 - Other specified postprocedural states (ICD-10) Olecranon bursitis of left elbow ?M70.22 - Olecranon bursitis, left elbow (ICD-10) History of malignant melanoma of skin ?Z85.820 - Personal history of malignant melanoma of skin (ICD-10) History of squamous cell carcinoma of skin ?Z85.828 - Personal history of other malignant neoplasm of skin (ICD-10) History of basal cell carcinoma of skin ?Z85.828 - Personal history of other malignant neoplasm of skin (ICD-10) History of cataract extraction with lens replacement 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 Live in [place] in his own home. Active, enjoys golfing. Alcohol 1-2 per night during happy hour. No illicit. Non-smoker. What is your current living situation?: I presently have a place to live Problems where you live: no known problems In the past 12 months, utilities in danger of being shut off: no In past 12 months, lack of transportation kept you from medical appts, meetings, work, or getting things needed for daily living: no In the past 12 mos, have been you worried that your food would run out before you had money to buy more?: never true In the past 12 mos, the food you bought just didn't last and you didn't have money to buy more?: never true Smoking Status: Former smoker What tobacco products do you use: cigarettes Smoking quit date/years: <= 15 years ago and cigars Do you use any of these nicotine containing products: None Second hand tobacco smoke exposure: No How often do you have a drink containing alcohol: 4 or more times a week Alcohol type: hard liquor How many standard drinks containing alcohol do you have on a typical day: 1 or 2 How often do you have six or more drinks on one occasion: Never AUDIT-C Alcohol total score: 4 Non-prescribed substance use: denies use Caffeine: Yes How often does anyone, including family, friends and others, physically hurt you: never How often does anyone, including family, friends and others, insult or talk down to you: never How often does anyone, including family, friends and others, threaten you with harm: never How often does anyone, including family, friends and others, scream or curse at you: never service: No Exam Narrative: Exam Narrative: Speaking easily. Breathing easily. Lungs are clear. Heart in regular rate and rhythm. Abdomen is soft nontender. There is soft swelling of his lower lip more so though the left side. Some erythema without significant swelling of the right dorsal forearm. Small area of swelling of the inner lower aspect of the right upper arm and some erythematous swellings on his upper right side below the axilla. Oropharynx unremarkable. No stridor. Const: Vital Signs, click to edit/add: Vital Signs - 24 hr 04/18/25 01:19 Temperature 97.9 F Pulse Rate [Pulse Oximeter] 78 Respiratory Rate 16 Blood Pressure [Ri ght Upper Arm] 186/93 H Pulse Oximetry 98 Oxygen Delivery Me thod Room Air Documenting provider has reviewed patient's vital signs: yes Course Vital Signs Vital signs: Initial Vital Signs Temperature 97.9 F 04/18/25 01:19 Temperature Source Temporal Artery Scan 04/18/25 01:19 Pulse Rate 78 04/18/25 01:19 Respiratory Rate 16 04/18/25 01:19 Blood Pressure 186/93 H 04/18/25 01:19 Blood Pressure Mean 124 H 04/18/25 01:19 Blood Pressure Position Sitting 04/18/25 01:19 Pulse Oximetry 98 04/18/25 01:19 Oxygen Delivery Method Room Air 04/18/25 01:19 Vital Signs Temperature 97.9 F 04/18/25 01:19 Pulse Rate 78 04/18/25 01:19 Respiratory Rate 16 04/18/25 01:19 Blood Pressure 186/93 H 04/18/25 01:19 Pulse Oximetry 98 04/18/25 01:19 Oxygen Delivery Method Room Air 04/18/25 01:19 Temperature 97.9 F 04/18/25 01:19 Pulse Rate 78 04/18/25 01:19 Respiratory Rate 16 04/18/25 01:19 Blood Pressure 186/93 H 04/18/25 01:19 Pulse Oximetry 98 04/18/25 01:19 Oxygen Delivery Method Room Air 04/18/25 01:19 Medications Administered Medications: Discontinued Medications Generic Name Dose Route Start Last Admin Trade Name Freq PRN Reason Stop Dose Admin Diphenhydramine HCl 25 mg 04/18/25 01:42 04/18/25 01:47 Diphenhydramine 25 Mg Capsule PO 04/18/25 01:43 25 mg ONCE ONE Administration Famotidine 20 mg 04/18/25 01:42 04/18/25 01:47 Famotidine 20 Mg Tablet PO 04/18/25 01:43 20 mg ONCE ONE Administration Prednisone 60 mg 04/18/25 01:42 04/18/25 01:46 Prednisone 20 Mg Tablet PO 04/18/25 01:43 60 mg ONCE ONE Administration Medical Decision Making MDM Narrative Medical decision making narrative: Appears to be having primarily an intense localized reaction to these stings. Not sure quite qualifies as anaphylaxis. Does not appear to be experiencing any respiratory difficulty. Will treat symptoms and monitor. Treated with prednisone, diphenhydramine, famotidine. Monitored on oximetry during time in the emergency department. Overall improved with regard to concerning symptoms and noticeably with less swelling. See patient discharge plan for further discussion You can still use hydrocortisone cream 3-4 times daily if this seems to be helpful. Otherwise you received diphenhydramine, famotidine as well as prednisone here in the emergency department. Diphenhydramine is very useful for acute allergic exposure. If you have any indication that you having increased trouble breathing, throat tightness, I would take a tab or two of this and re present to the emergency department. I am prescribing you some prednisone as a broad anti-inflammatory and anti allergy treatment, from [facility]. As discussed can use diphenhydramine for breakthrough itch or irritation. Probably would not use diphenhydramine however regularly dosed and long-term. Do not need to take any more prednisone tonight. Can apply cold moist cloths to irritated skin. Medical Records Medical records reviewed: Yes I reviewed the patient's medical records Discharge Plan Discharge Clinical Impression: Hornet sting Patient Disposition: Home, Self-Care Condition: Stable Additional Instructions: You can still use hydrocortisone cream 3-4 times daily if this seems to be helpful. Otherwise you received diphenhydramine, famotidine as well as prednisone here in the emergency department. Diphenhydramine is very useful for acute allergic exposure. If you have any indication that you having increased trouble breathing, throat tightness, I would take a tab or two of this and re present to the emergency department. I am prescribing you some prednisone as a broad anti-inflammatory and anti allergy treatment, from [facility]. As discussed can use diphenhydramine for breakthrough itch or irritation. Probably would not use diphenhydramine however regularly dosed and long-term. Do not need to take any more prednisone tonight. Can apply cold moist cloths to irritated skin. Prescriptions: No Action fluticasone propionate 50 mcg/actuation spray,suspension 2 spray intranasal DAILY loratadine [Claritin] 10 mg tablet 10 mg PO QDAY cholecalciferol (vitamin D3) 125 mcg (5,000 unit) tablet 5,000 unit PO DAILY psyllium husk 0.52 gram capsule 1 g PO PRN methylcellulose (laxative) Powder 2 g PO BID docusate calcium 240 mg capsule 1 mg PO BID multivitamin [Multiple Vitamins] Tablet 1 tab PO QDAY glucosamine [id number] 500-167-400 mg tablet 1 tab PO QDAY Rx Instructions: give with meal/snack finasteride 5 mg tablet 5 mg PO DAILY tadalafil 20 mg tablet 20 mg PO DAILY hydrochlorothiazide 25 mg tablet 25 mg PO DAILY Qty: 90 3RF simvastatin 20 mg tablet 20 mg PO .Bedtime Qty: 90 3RF Follow Up/Referrals: Ellen Hamilton MD [Primary Care Provider, Internal Medicine] Stand Alone Forms: [employer] Info Instructions
[2025-04-18] MEDS: FAMOTIDINE 20 MG TABLET PO (01:47)
== END 2025-04-18 01:54 | disposition home or self-care (01) ==
PROVIDERS: Emergency Provider Family Medicine; PCP Internal Medicine
DX: R20.8 Other disturbances of skin sensation (principal); T63.451A Toxic effect of venom of hornets, accidental (unintentional), initial encounter; Y92.007 Garden or yard of unspecified non-institutional (private) residence as the place of occurrence of the external cause
CPT/HCPCS: 99283; 99284; A9270; J7512

== ENCOUNTER 2025-07-11 15:28 | Outpatient (CLI) | payer MEDICARE, BC, SELFPAY | END 2025-07-11 15:29 | disposition home or self-care (01) | LOC: NFLDREF 15:42 | PROVIDERS: PCP Internal Medicine; Visit Provider Internal Medicine | DX: M79.641 Pain in right hand (principal); M79.642 Pain in left hand | CPT/HCPCS: 86140 ==